=== PATIENT | female | born 1945 | race Caucasian/White ===

== ENCOUNTER → 2017-06-15 | Outpatient (CLI) | payer OTHER | LOC: CIMAGING 14:46 | DX: Z12.31 Encounter for screening mammogram for malignant neoplasm of breast (principal) | CPT/HCPCS: G0202 ==

== ENCOUNTER 2017-12-16 13:30 | Inpatient (IN) | payer OTHER ==
[2017-12-16] MEDS ORDERED: NS 1,000 ML IV ONE (13:43)
--- NOTE | 2017-12-16 13:47 | EDPHY ---
H & P Time Seen by Provider: 12/16/17 13:31 HPI/ROS: CHIEF COMPLAINT: Unwitnessed fall, right hip pain HISTORY OF PRESENT ILLNESS: 72[place]year-[place] to [place] emergency department by ambulance after having an unwitnessed fall. Patient thinks that she fell 3 days ago and then fell again today. The friend who found her thinks that she has been lying on the floor for several days. Per EMS, she was covered in stool and urine. Patient complains of isolated pain in her right hip. She has pain especially when she tries to move her right leg around. She has some mild pain in her right knee as well. Denies back pain. Denies neck pain. Denies chest pain or difficulty breathing. Denies abdominal pain. No vomiting. REVIEW OF SYSTEMS: Constitutional: No fever, no chills. Eyes: No double or blurry vision. ENT: No sore throat. Respiratory: No cough, no shortness of breath. Cardiac: No chest pain. Gastrointestinal: No abdominal pain, vomiting or diarrhea. Genitourinary: No dysuria. Musculoskeletal: No neck or back pain. Skin: No rashes. Neurological: No headache. Past Medical/Surgical History: Hypertension, diabetes Social History: Lives independently with her dog Physical Exam: General Appearance: Alert, no distress. No visible signs of trauma to her head. She is mentating normally and answering questions appropriately. Eyes: Pupils equal and round. Extraocular motions are all intact. ENT: Mouth: Mucous membranes are very dry Respiratory: No wheezing, rhonchi, or rales, lungs are clear to auscultation. Cardiovascular: Regular rate and rhythm. Gastrointestinal: Abdomen is soft and nontender, no masses, no rebound or guarding, bowel sounds normal. Neurological: Alert and oriented x 3, cranial nerves II through XII grossly intact Skin: Warm and dry, no rashes. Musculoskeletal: Nontender to palpate along the cervical, thoracic or lumbar spine. Neck is supple. Extremities: Patient has mild pain with palpation to the lateral aspect of the right hip. She has pain with external rotation of the right hip. She has limited flexion of the right knee secondary to pain. Full range of motion of the left lower extremity. Psychiatric: Patient is oriented X 3, there is no agitation. Constitutional: Initial Vital Signs Temperature (C) 36.8 C 12/16/17 13:42 Heart Rate 58 L 12/16/17 13:42 Respiratory Rate 18 12/16/17 13:42 Blood Pressure 106/63 12/16/17 13:42 O2 Sat (%) 92 12/16/17 13:42 O2 Delivery Mode Room Air Allergies/Adverse Reactions: levofloxacin [From Levaquin] Allergy (Verified 12/16/17 13:46) Penicillins Allergy (Verified 12/16/17 13:46) Home Medications: Medication Instructions Recorded ALPRAZolam [Xanax 1 MG (*)] 1 mg PO DAILY 12/16/17 Gabapentin [Neurontin 300 MG (*)] 300 mg PO HS 12/16/17 Sulfamethox/Tmp 800/160 mg 1 tab PO 12/16/17 [Bactrim Ds] Valsartan/Hydrochlorothiazide 1 each PO DAILY 12/16/17 [Diovan Hct 320-25 mg Tablet] Medical Decision Making - Diagnostics Imaging Results: Imaging Impressions Hip X-Ray 12/16/17 13:43 Impression: Negative. No acute fracture. If patient is unable to bear weight, consider noncontrast CT of the pelvis. Imaging: Discussed imaging studies w/ call center rn Radiologist, I viewed and interpreted images myself ED Course/Re-evaluation: 72-year-old female presents to the emergency department with hip pain after frequent falls. The patient lives independently in [place], [place]. The patient said that she fell 3 days ago. She is not clear how long she was lying on the floor. She does remember with getting up and walking around and then fell again today. A friend found her who called EMS for transport. The patient is complaining of pain especially in her right hip when she tries to bear weight. The patient denies paresthesias in her upper or lower extremities. Denies pain in her right knee or ankle. Denies symptoms in the left lower extremity. Laboratory studies reveal elevated CPK of 3600. Sodium of 147, BUN of 38 with a normal creatinine 0.8. The case was discussed with Dr. Andre Cha, secondary supervising physician, who did not directly evaluate the patient but agrees with treatment plan. There was some concern from EMS that her house was disheveled. The patient is not suicidal homicidal. Case management is aware and will contact the floor. X-rays were obtained of the right hip which reveal no fractures. The patient was able to ambulate in the emergency department however she did require assistance and seemed very unsteady on her feet. The patient will be admitted to the hospitalist, Dr. Rivers. Differential Diagnosis: Including but not limited to electrolyte abnormality, dehydration, rhabdomyolysis, hip fracture, contusion, pelvis fracture, low back strain - Data Points Laboratory Results: Laboratory Results 12/16/17 14:25 12/16/17 14:25 12/16/17 12/16/17 12/16/17 16:25 14:25 14:25 WBC 14.05 10^3/uL H 10^3/uL (3.80-9.50) RBC 6.27 10^6/uL H 10^6/uL (4.18-5.33) Hgb 18.0 g/dL H g/dL (12.6-16.3) Hct 53.3 % H % (38.0-47.0) MCV 85.0 fL fL (81.5-99.8) MCH 28.7 pg pg (27.9-34.1) MCHC 33.8 g/dL g/dL (32.4-36.7) RDW 14.4 % % (11.5-15.2) Plt Count 195 10^3/uL 10^3/uL (150-400) MPV 9.7 fL fL (8.7-11.7) Neut % (Auto) 87.2 % H % (39.3-74.2) Lymph % (Auto) 7.0 % L % (15.0-45.0) [place] % (Auto) 5.1 % % (4.5-13.0) Eos % (Auto) 0.1 % L % (0.6-7.6) Baso % (Auto) 0.2 % L % (0.3-1.7) Nucleat RBC Rel Count 0.0 % % (0.0-0.2) Absolute Neuts (auto) 12.25 10^3/uL H 10^3/uL (1.70-6.50) Absolute Lymphs (auto) 0.98 10^3/uL L 10^3/uL (1.00-3.00) Absolute Monos (auto) 0.72 10^3/uL 10^3/uL (0.30-0.80) Absolute Eos (auto) 0.02 10^3/uL L 10^3/uL (0.03-0.40) Absolute Basos (auto) 0.03 10^3/uL 10^3/uL (0.02-0.10) Absolute Nucleated RBC 0.00 10^3/uL 10^3/uL (0-0.01) Immature Gran % 0.4 % % (0.0-1.1) Immature Gran # 0.05 10^3/uL 10^3/uL (0.00-0.10) Sodium 147 mEq/L H mEq/L (135-145) Potassium 3.4 mEq/L mEq/L (3.3-5.0) Chloride 110 mEq/L mEq/L (97-110) Carbon Dioxide 20 mEq/l L mEq/l (22-31) Anion Gap 17 mEq/L H mEq/L (8-16) BUN 38 mg/dL H mg/dL (7-23) Creatinine 0.8 mg/dL mg/dL (0.6-1.0) Estimated GFR > 60 Glucose 140 mg/dL H mg/dL (70-100) Calcium 9.1 mg/dL mg/dL (8.5-10.4) Creatine Kinase 3604 IU/L H IU/L (0-156) CK-MB (CK-2) Fraction 37.10 ng/mL H ng/mL (0.00-4.55) CK-MB (CK-2) % 1.0 % % (0.0-4.0) Creatine Kinase Interp NEGATIVE (NEGATIVE) Urine Color YELLOW Urine Appearance CLEAR Urine pH 5.0 (5.0-7.5) Ur Specific [place] 1.021 (1.002-1.030) Urine Protein NEGATIVE (NEGATIVE) Urine Ketones TRACE H (NEGATIVE) Urine Blood 1+ H (NEGATIVE) Urine Nitrate NEGATIVE (NEGATIVE) Urine Bilirubin NEGATIVE (NEGATIVE) Urine Urobilinogen NEGATIVE EU EU (0.2-1.0) Ur Leukocyte Esterase NEGATIVE (NEGATIVE) Urine RBC 5-10 /hpf H /hpf (0-3) Urine WBC 5-10 /hpf H /hpf (0-3) Ur Epithelial Cells TRACE /lpf /lpf (NONE-1+) Amorphous Sediment PRESENT /hpf /hpf (NONE-1+) Hyaline Casts 5-15 /lpf /lpf (0-1) Urine Mucus TRACE /lpf /lpf (NONE-1+) Urine Glucose 1+ H (NEGATIVE) Medications Given: Discontinued Medications Sodium Chloride (Ns) 1,000 mls @ 0 mls/hr IV ONCE ONE PRN Reason: Wide Open Stop: 12/16/17 13:44 Last Admin: 12/16/17 14:04 Dose: 1,000 mls Departure - Departure Disposition: [facility] Inpatient Acute Clinical Impression: Frequent falls, Dehydration Contusion of right hip Qualifiers: Encounter type: initial encounter Qualified Code(s): S70.01XA - Contusion of right hip, initial encounter Condition: Good
[2017-12-16 14:44] LABS: PLATELET COUNT 195 10^3/uL (150-400)
[2017-12-16 15:10] LABS: CREATINE KINASE 3604 IU/L (0-156)
--- NOTE | 2017-12-16 16:12 | ASMTCMCOM ---
CM Note CM Note Notes: Pt in ED by ambulance from [place] after a friend found her on the floor of her home. Her friend informed EMS that she may have been lying on the floor for several days. Pt is being admitted for obsrvation. She lives alone with her Rottweiler and has a very limited support system. After care will need to be assessed with the possibilty of SNF. DC needs TBD, CM to follow. Date Signed: 12/16/2017 04:12 PM Electronically Signed By:David Caicedo LCSW
[2017-12-16] MEDS ORDERED: ONDANSETRON 4 MG/2 ML VIAL IVP PRN (17:27)
[2017-12-16] MEDS ORDERED: ACETAMINOPHEN 325 MG TAB PO PRN (17:27)
[2017-12-16] MEDS ORDERED: ONDANSETRON DISINTEGRATING 4 MG TAB PO PRN (17:27)
[2017-12-16] MEDS ORDERED: NS 1,000 ML IV SCH (17:30)
--- NOTE | 2017-12-16 17:49 | PDGENHP ---
History and Physical History and Physical: CC: Brought by paramedics were called as the patient wasUnable to get up off the floor HISTORY: This patient fell 2 days ago and could not get up off the floor where she stayed at her home in [place] where she lives by herself with a dog. Apparently friend came by and called the paramedics who brought her here to the hospital. According to paramedics that the house was disheveled. The patient tells me that she slipped and fell landing on a right-sided has right-sided hip pain but no other pain. She did not lose consciousness, but thinks she may have bumped her head but has no headache or neurologic symptoms or neck pain or radicular symptoms. She does admit that she had been having nausea and vomiting lightheadedness and weakness earlier in the week prior to the fall. She was too weak to get up off the floor. She was not using her walker which she is supposed to use chronically. She has only had 1 previous fall but does have some gait instability. She does not recall any history of hypoglycemic symptoms. She denies having had any recent abdominal pain, fevers, diarrhea, bleeding. No new changes in medications. She does admit that she takes a daily Xanax tablet most days for anxiety. She has had no medication changes. She denies she any current use of alcohol or drugs. ROS: A comprehensive 10 system review revealed no other significant findings PAST MEDICAL HISTORY: Gait instability Hypertension Diabetes mellitus on insulin FAMILY MEDICAL HISTORY: Nothing specific that she is aware of SOCIAL HISTORY: Lives alone with a dog in a cabin in [place] Again as mentioned it sounds like her cabin was quite disheveled per paramedics. She does have a walker that she is post use but was not using it at the time of her fall 2 days ago MEDICATIONS: The patients list has been reconciled by our clinical pharmacist in the EMR. I have reviewed the list and ordered appropriate medicines. PHYSICAL EXAMINATION: Vital Signs: All stable without fever Primary Products Inspectors: Sinus Examination: General: Quite obese, odor of urine and does not smell to have had any bathing recently. Otherwise alert, oriented, good mentation, relaxed but looks mildly uncomfortable Skin: warm, dry, overall good color; there is extensive intertriginous disease with open sores between her lower abdominal folds and around the groin as well as under the breast. No definite cellulitis and no purulent drainage HEENT: normal with no evidence of injury; she does have missing upper teeth and does not of her denture with her Neck: no mass or jvd or tenderness Resps: relaxed Lungs: clear breath sounds Heart: regular, no murmur Abdomen: Difficult exam due to marked obesity, soft, nondistended, nontender, + BS, no mass Upper Extremities: normal Lower Extremities: Some mild edema no evidence of cellulitis; in the right leg there is some pain with movement at the right hip and right knee and tenderness at the distal thigh over the femur but no visible abnormality no crepitus or clicking No some mild bruises on the lower right abdomen Neurologic: normal speech/language, 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 She has a total CPKs 3600 with negative MB White blood cell count elevated 14 hemoglobin elevated at 18 with hematocrit 53 normal platelets RADIOLOGY STUDIES: X-rays of the right hip and pelvis show no evidence of fracture or other acute abnormality, there is some mild atherosclerosis calcification present 12 LEAD EKG: Not done in the ER yet ASSESSMENT: # FOUND DOWN ON FLOOR UNABLE TO GET UP AFTER A MECHANICAL FALL # ACUTE DEHYDRATION WITH HYPERNATREMIA AND PRE RENAL AZOTEMIA # ACUTE RHABDOMYOLYSIS CPK 3600 # RIGHT HIP PAIN NO EVIDENCE OF FRACTURE ON X-RAYS BUT WOULD BE CONCERNED ABOUT POSSIBLE MISSED SKELETAL INJURY # RIGHT DISTAL FEMUR PAIN NOT YET IMAGED, DOUBT FRACTURE BUT THIS SHOULD BE STUDIED # MARKET INTERTRIGINOUS DERMATITIS IN SKIN FOLDS AROUND THE ABDOMEN AND BREASTS WITH OPEN WOUNDS WILL NEED EXTENSIVE WOUND CARE AND WOUND CARE NURSE CONSULTATION HERE # CHRONIC GAIT INSTABILITY WITH FALL RISK, SUPPOSEDLY USING A WALKER AT HOME BUT DID NOT FOR THIS FALL; NOTABLY PATIENT DOES TAKE A DAILY BENZODIAZEPINE XANAX TABLET WHICH WILL INCREASE HER FALL RISK AND IT WOULD BE RECOMMENDED TO TRY AND DISCONTINUE THAT MEDICINE # DIABETES MELLITUS, ON CHRONIC INSULIN WITH INITIALLY GOOD SUGAR HERE ON PRESENTATION # MORBID OBESITY WITH SOME MILD LEG EDEMA WOULD SUGGEST PROBABLE RIGHT-SIDED CHF AND PULMONARY HYPERTENSION AND WOMAN LIVING AT VERY HIGH ALTITUDE # SOCIAL ISSUES: PATIENT HAS A DOG SHE LIVES WITH AT HOME, SAYS THAT A FRIEND IS TAKING CARE OF HER DOG BUT I HAVE ASKED GRADUATE STUDENT INSTRUCTOR TO CHECK TO SEE THAT HER DOG IS APPROPRIATELY TENDED AND SAFE. SOUNDS LIKE HER HOUSE IS DISHEVELLED WONDER IF SHE IS ABLE TO CARE FOR HERSELF AT HOME APPROPRIATELY, MAY BE HELPFUL TO INTERVIEW FRIENDS PLANS: * INPATIENT ADMISSION SHE WILL CLEARLY NEED MORE THAN 48 HR TO RESOLVE THE ABOVE TO BE ABLE TO LEAVE THE HOSPITAL SAFELY * IV HYDRATION * FALL RISK PRECAUTIONS * WOUND CARE CONSULT * FOLLOW CPK AND RENAL FUNCTION AND SODIUM CLOSELY * FOLLOW SUGARS CLOSELY, I HAVE ORDERED HER USUAL LONG-ACTING INSULIN BUT WILL NEED TO DETERMINE THE MOST APPROPRIATE SHORT-ACTING INSULIN DOSING FOR HER IN HER CURRENT INPATIENT SITUATION, WATCH CLOSELY FOR LOW SUGARS * RECOMMEND STOPPING HER BENZODIAZEPINE AT THIS TIME * PT AND OT CONSULT * DVT PROPHYLAXIS * I HAVE ORDERED SOCIAL WORK CONSULT AND REQUESTED THAT THEY LOOK INTO HER HOME LIVING SITUATION WELL TO BE SURE HER DOG IS APPROPRIATELY TENDON SAFE I have reviewed the patient's case in detail with Maral Olson of the ER I have reviewed the patient's past medical records as part of this assessment, including clinic records from her outpatient clinics which actually contain minimal information in this case, and also past outpatient imaging studies
--- NOTE | 2017-12-16 17:51 | HOSPPROG ---
Hospitalist Progress Note Assessment/Plan: Addendum to my history and physical: I have also ordered CT scan of the hip and pelvis to rule out right hip fracture as well as x-rays of the right femur to rule out distal femur fracture after her fall. The studies are pending tonight TuesdayDecember 16. Objective: Vital Signs Temp Pulse Resp BP Pulse Ox 36.6 C 64 18 104/80 92 12/16/17 17:26 12/16/17 17:26 12/16/17 17:26 12/16/17 17:26 12/16/17 17:26 ICD10 Worksheet Patient Problems: Problems Problem Status Onset Frequent falls Acute Dehydration Acute Contusion of right hip Acute
--- NOTE | 2017-12-16 19:11 | PDMN ---
Medical Necessity Medical necessity: C/M review: est. > 2 MN LOS for eval and TX of acute - dehydration with hypernatremia and pre renal azotemia, rhabdomyolysis, right hip pain requiring 12/16/2017 CT right hip and pelvis, right femur xray, planned Wound Care consult, Social Work (Case Management) consult, ongoing IV fluids, patient will need extensive wound care, fall risk precautions, CPK / renal function/ Na monitoring closely, blood glucose monitoring closely, recommend stopping benzodiazepine, acute inpt PT/OT, comorbid patient fell 2 days ago and could not get up off the floor, found down at her home after mechanical fall, market intertriginous dermatitis in skin folds around the abdomen and breasts with open wounds, chronic gait instability - patient supposedly using a walker at home but did not prior to this fall, diabetes, morbid obesity with some mile leg edema, social issues patient has a dog at home per H/P, Hospitalist progress note.
[2017-12-16] MEDS: traMADol 50 MG TAB PO PRN (19:23)
[2017-12-16] MEDS: SULFAMETHOX/TMP 800/160 MG 1 TAB PO SCH (20:39)
[2017-12-16] MEDS: INSULIN GLARGINE 100 UNITS/ML UNIT SC SCH (20:39)
[2017-12-16] MEDS: GABAPENTIN 300 MG CAP PO SCH (20:39)
[2017-12-17 05:20] LABS: PLATELET COUNT 177 10^3/uL (150-400)
[2017-12-17 05:45] LABS: CREATINE KINASE 1314 IU/L (0-156)
[2017-12-17] MEDS ORDERED: D5W 1,000 ML IV SCH (08:30)
[2017-12-17] MEDS ORDERED: VALSARTAN 160 MG TAB PO SCH (09:00)
[2017-12-17] MEDS ORDERED: HYDROCHLOROTHIAZIDE 25 MG TAB PO SCH (09:00)
[2017-12-17] MEDS: ENOXAPARIN 40 MG/0.4 ML SYR SC SCH ×2 (09:05→21:29)
[2017-12-17] MEDS: SULFAMETHOX/TMP 800/160 MG 1 TAB PO SCH ×2 (09:06→21:30)
[2017-12-17] MEDS: traMADol 50 MG TAB PO PRN ×3 (10:15→23:10)
[2017-12-17] MEDS ORDERED: NS 250 ML IV ONE (11:47)
[2017-12-17] MEDS ORDERED: NS 750 ML IV ONE (12:12)
--- NOTE | 2017-12-17 15:22 | HOSPPROG ---
Hospitalist Progress Note Assessment/Plan: #Hypotension: persistent all day. Supect due to severe dehydration. Bolus IVFs, hold anti-hypertensives. Afebrile. Lactate NL. Urine culture negative -troponin elevated to 0.4, TWI anterior leads. Check stat echo, dimer to r/o PE #Hypernatremia: IVFs, repeating BMP #Fall: slipped. No prodromal sxs. No CP, SOB at baseline. No acute fracture on imaging. PT/OT #Pyuria: no symptoms. 3 colonies on culture. No abx warranted #Diarrhea: at home. 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 Denies lightheadedness. Per RN, did not received IVFs ordered last night. Objective: Vital Signs Temp Pulse Resp BP Pulse Ox 36.4 C 56 L 18 86/52 L 91 L 12/17/17 11:33 12/17/17 11:33 12/17/17 11:33 12/17/17 11:33 12/17/17 11:33 Laboratory Results 12/17/17 04:55 12/16/17 12/17/17 12/18/17 05:59 05:59 05:59 Intake Total 50 Balance 50 - Time Spent With Patient Time Spent with Patient: greater than 35 minutes Time Spent with Patient: Greater than 35 minutes spent on this patients care, greater than 50% of time spent counseling, educating, and coordinating care regarding the above mentioned plan. - Physical Exam Constitutional: obese Eyes: PERRL, other Ears, Nose, Mouth, Throat: dry mucous membranes Cardiovascular: regular rate and rhythym, no murmur, rub, or gallop Respiratory: no respiratory distress, rhonchi Gastrointestinal: normoactive bowel sounds Genitourinary: no bladder fullness Skin: warm Musculoskeletal: full muscle strength Neurologic: AAOx3, CN II-XII Intact Psychiatric: interacting appropriately ICD10 Worksheet Patient Problems: Problems Problem Status Onset Contusion of right hip Acute Dehydration Acute Frequent falls Acute
[2017-12-17] MEDS ORDERED: NS 500 ML IV ONE (15:34)
--- NOTE | 2017-12-17 16:36 | ASMTCMCOM ---
CM Note CM Note Notes: Spoke w/PT, she lives alone with her dog in [place]. She states that, she has lots of good friends that help her out and they are taking care of her dog. Advised pt that PT/OT recommend she go to SNF before returning home, pt reluctantly agrees and would like referrals sent to SNFs in [place]. [facility] and [facility]. DC Plan: SNF Date Signed: 12/17/2017 04:35 PM Electronically Signed By:Dianna Garduno RN
[2017-12-17] MEDS: NS 1,000 ML IV SCH ×2 (16:54→23:13)
--- NOTE | 2017-12-17 17:10 | CPEKG ---
Heart Rate: 50 RR Interval: 1200 P-R Interval: 256 QRSD Interval: 122 QT Interval: 488 QTC Interval: 445 P Maple: 29 QRS Maple: -1 T Wave Maple: 9 EKG Severity - ABNORMAL ECG - EKG Impression: SINUS RHYTHM EKG Impression: FIRST DEGREE AV BLOCK EKG Impression: NONSPECIFIC INTRAVENTRICULAR CONDUCTION DELAY Electronically Signed By: Carlitos Whiteside 19-Dec-2017 05:51:26
--- NOTE | 2017-12-17 18:58 | ECHO ---
[email or web address] [address] [address] Main: [phone] Fax: Transthoracic Echocardiogram Name: MUNIR NASSAR MR#: [id number] Study Date: 12/17/2017 Study Time: 06:25 PM Date of : 1945 Age: 72 year(s) Height: 170.2 cm (67 in.) Weight: 117.94 kg (260 lb.) BSA: 2.26 m2 Gender: Female Examination: Echo Indication: Elevated troponin/hypotension/eval for WMA/obesity Image Quality: Contrast: Requested by: Alea Blake BP: 109 mmHg/67 mmHg Heart Rate: Rhythm: Indication: Elevated troponin/hypotension/eval for WMA/obesity Procedure Staff Blender Laborer: Mariluz Montalvo RDCS Reading Physician: Jason Finn MD Requesting Provider: Conclusions: Normal size left ventricle. No LV hypertrophy. Normal global systolic LV function. EF is 73 %. No regional wall motion abnormality. Normal diastolic LV function. Normal size right ventricle. The left atrium is normal in size. The right atrium is normal in size. The mitral valve is normal in appearance and function. Trivial mitral valve regurgitation. The tricuspid valve is normal in appearance and function. Mild tricuspid regurgitation is present. Pulmonary valve not well visualized. No previous Measurements: Chambers Valvular Assessment AV/MV Valvular Assessment TV/PV Normal Normal Normal Name Value Range Name Value Range Name Value Range Ao Jaja (MM): 3.3 cm (2.2 cm-3.7 AV meanP mmHg ( - ) TR Vmax: 2.14 mm/s ( - ) cm) MV E Vmax: 0.82 m/s ( - ) TR PGmax: 18 mmHg ( - ) IVSd (2D): 1.0 cm (0.6 cm-1.1 MV A Vmax: 0.66 m/s ( - ) syst. PAP: 23 mmHg ( - ) cm) MV E/A: 1.24 ( - ) LVDd (2D): 4.6 cm (3.9 cm-5.3 cm) LVDs (2D): 2.7 cm (2.1 cm-4 cm) LVPWd (2D): 0.9 cm ( - ) Patient: MUNIR NASSAR Study Date: 12/17/2017 Page 1 of 2 06:25 PM LVEF (2D): 73 (>=54 %) Continued Measurements: Chambers Valvular Assessment AV/MV Valvular Assessment TV/PV Name Value Name Value Name Value LADs: 3.1 cm MV E' Septal: 0.08 m/s CVP (est.): 5 mmHg LADs Lon.0 cm MV E/E' Septal: 10.80 LA Area: 21.8 cm2 MV E/E' Lateral: 6.60 Findings: Left Ventricle: Normal size left ventricle. No LV hypertrophy. Normal global systolic LV function. EF is 73 %. No regional wall motion abnormality. Normal diastolic LV function. Right Ventricle: Normal size right ventricle. Left Atrium: The left atrium is normal in size. Right Atrium: The right atrium is normal in size. Mitral Valve: The mitral valve is normal in appearance and function. Trivial mitral valve regurgitation. Aortic Valve: Aortic valve opens well.. Tricuspid Valve: The tricuspid valve is normal in appearance and function. Mild tricuspid regurgitation is present. Pulmonic Valve: Pulmonary valve not well visualized. Aorta: The aorta is normal. Pericardium: No pericardial effusion. (No Signature Object) Patient: MUNIR NASSAR Study Date: 12/17/2017 Page 2 of 2 06:25 PM [id number]
[2017-12-17] MEDS ORDERED: IOPAMIDOL (ISOVUE 370) 100 ML BTL IV ONE (19:57)
[2017-12-17] MEDS: GABAPENTIN 300 MG CAP PO SCH (21:30)
[2017-12-17] MEDS: INSULIN GLARGINE 100 UNITS/ML UNIT SC SCH (21:43)
[2017-12-18] MEDS: NS 1,000 ML IV SCH ×2 (07:14→16:26)
[2017-12-18] MEDS: ENOXAPARIN 40 MG/0.4 ML SYR SC SCH ×2 (08:37→21:32)
[2017-12-18] MEDS: traMADol 50 MG TAB PO PRN ×2 (08:37→16:25)
[2017-12-18] MEDS: SULFAMETHOX/TMP 800/160 MG 1 TAB PO SCH ×2 (08:37→21:31)
--- NOTE | 2017-12-18 08:39 | HOSPPROG ---
Hospitalist Progress Note Assessment/Plan: #Hypotension: improved with aggressive hydration. Cont IVFs, hold anti- hypertensives. No WMA on echo. Afebrile. Lactate NL. Urine culture negative #NSTEMI: trop peaked 0.4, no WMA on echo. CTA negative for PE. Likely demand from significant dehydration, mild rhabdo. Risk stratify with lipids/A1c, Lexican once clinically improved #Hypernatremia: resolved #Fall: slipped. No prodromal sxs. No CP, SOB at baseline. No acute fracture on imaging. PT/OT. Agreeable to SNF at discharge #Pyuria: no symptoms. 3 colonies on culture. No abx warranted #Diarrhea: at home. Check C diff if recurrent given chronic abx #DM2: cont insulin #Right thigh contusion: blistering over thigh. 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 Having good urine output Objective: Vital Signs Temp Pulse Resp BP Pulse Ox 36.7 C 50 L 18 100/53 L 93 12/18/17 08:00 12/18/17 08:00 12/18/17 08:00 12/18/17 08:00 12/18/17 08:00 Laboratory Results 12/18/17 04:50 12/18/17 04:50 12/17/17 12/18/17 12/19/17 05:59 05:59 05:59 Intake Total 50 2300 Output Total 1100 Balance 50 1200 - Time Spent With Patient Time Spent with Patient: greater than 35 minutes Time Spent with Patient: Greater than 35 minutes spent on this patients care, greater than 50% of time spent counseling, educating, and coordinating care regarding the above mentioned plan. - Physical Exam Constitutional: obese Ears, Nose, Mouth, Throat: dry mucous membranes Cardiovascular: regular rate and rhythym, No edema Respiratory: no respiratory distress Gastrointestinal: normoactive bowel sounds, soft, non-tender abdomen Genitourinary: no bladder fullness Skin: warm Musculoskeletal: generalized weakness, other (right thigh with brusing and 2 small blisters. No erythmea or cellulitis) Neurologic: AAOx3, CN II-XII Intact Psychiatric: flat affect ICD10 Worksheet Patient Problems: Problems Problem Status Onset Contusion of right hip Acute Dehydration Acute Frequent falls Acute
--- NOTE | 2017-12-18 12:04 | WOCRNPDOC ---
WOCRN Advanced Assessment Note - Skin Integrity Problem, Advanced Assess Medial Pannus Dermatitis Dressing Type: Open to Air (powder) Closure Description: Not Approximated Exudate Amount: Minimal Ryann Wound Tissue: Erythema, Denuded, Painful/Tender Wound Bed Color: [place] Wound Bed Constitution: Smooth Tissue Wound Edges: Irregular Skin Integrity Problem Comment: Patient with denuded skin to lower abdominal pannus, groin folds and bilateral breasts, likely moisture related from skin- skin contact. Patient currently headed into the shower. Advised her to clean the areas really well and to dry them thoroughly afterwards. SAMARA Hernandez advised to place pillowcases in folds once dry to keep skin from touching. Pillowcases to be changed BID and PRN. Patient in agreement. All questions answered. Wound care does not need to continue to follow. Please reconsult PRN.
--- NOTE | 2017-12-18 14:48 | ASMTCMCOM ---
CM Note CM Note Notes: CM chart review, [facility] is unable to accept new patients until or Tues. CM called [facility] as there is currently no response from facility, CM was unable to connect with anyone in admissions. IRWIN shared this info with RN. IRWIN to follow. Current D/C Plan: SNF. Date Signed: 12/18/2017 02:48 PM Electronically Signed By:Lorrie Jorgensen
--- NOTE | 2017-12-18 21:05 | GCON ---
[f rep st] CONSULTATION CARDIOVASCULAR CONSULTATION. CHIEF COMPLAINT: Abnormal serum troponin. HISTORY OF PRESENT ILLNESS: The patient was brought to the hospital on 2017. This story goes that the patient fell 2 days before that and that she could not get off the floor. She lives alone, and eventually, a friend came by and called the paramedics who brought her to the hospital. The patient reports to me that she is not sure she remembers what happened, but the previous notes when she first came in the hospital report that she slipped and fell, landing on her side. She tells me she did not faint. She does not lose consciousness. She said she could not get off the floor. She is weak on a regular basis and she has a hard time getting around even with her walker. She could not tell me how long she had been on the floor. She said she did not remember that. It is reported that she had an unwitnessed fall and she fell several days prior to coming in and then other reports stated she fell on the day of the fall, then friends had reported in the chart that she had fallen and been on the floor for several days. So, the history is confusing. What is clear is that she does not report any chest pain, jaw pain, arm pain. She reported no previous trauma to the head, neck, or chest. She denies to me lightheadedness, dizziness, palpitations. She did not have focal neurologic deficits, such as weakness on one side or difficulty with her speech, and she has not been complaining of hemoptysis, trouble breathing. She had been taking her usual medicines and she had been living her regular life is what she reports today to me. She tells me that she has a history of diabetes mellitus and hypertension, but that they are well controlled. She is clearly obese, her cardiac risks factors that are positive. Her cardiac risk factors are negative for family history of premature coronary disease, dyslipidemia, hyperuricemia, known coronary artery disease, or family historyof premature coronary artery disease. She has not had a history of heart failure, orthopnea, PND. She chronically is somewhat short of breath, and she says she does not have dyspnea on exertion, but it is quite clear that she probably does not move around much and would be short of breath so that answer comes and goes from her whether she really is or is not short of breath at times, but it is not a major complaint of hers for sure. She has not been having fever, chills, dysuria frequency, upper respiratory tract symptoms, or other infectious type symptoms. She does not have a history of rashes or stiff neck. She has not had trauma other than the ENDS HERE. Falls, but she said she is not left with any pain from those falls. ALLERGIES: Levofloxacin, penicillin. MEDICATIONS: Valsartan/hydrochlorothiazide, gabapentin, alprazolam, and Bactrim. REVIEW OF SYSTEMS: 10-point review of systems is negative, except as noted in the chart and here above. 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. At this time, she says she is only semi-retired. She lives alone. She lives in [place]. She has a dog. She does not smoke. She has no history of children, and she has no history of using marijuana. PHYSICAL EXAMINATION: VITAL SIGNS: Blood pressure is 101/50, heart rate is 53 , oxygen saturation is 91. She is afebrile. HEENT: Pupils that are equal and reactive. NECK: Supple. CARDIOVASCULAR: Reveals S1, S2. Very distant heart sounds. The PMI is not palpable. PULMONARY: Reveals rhonchi bilaterally with no rales, wheezing, or dullness. ABDOMEN: Very soft. She is massively obese. EXTREMITIES: No tenderness. She does have mild edema bilaterally. At this point, she is not having any pain when she moves the right or left leg. SKIN: Age-related changes and some ecchymosis. PSYCH: No obvious anxiety or depression. NEURO: No focal neurologic deficits. PSYCH: No obvious anxiety or depression. LABORATORY DATA: BUN was 38. Creatinine was normal. Glucose was 140. CPKs were 3600, negative MB's. White count was elevated. Hemoglobin was 18, hematocrit 53 , and normal platelets. The patient's white count originally was 14,000 with hematocrit of 53.3, 87% neutrophils, lymphocytes were 7, monos were 5.1, eos were 0.1, basos 0.2. A followup hematocrit the next day had dropped from 53 to 48, and on the following day, 12/18/17, it is 44.2. The white count is down to 8.59. The patient's sodium on 12/16 was 147 with a potassium of 3.4, carbon dioxide of 20, BUN of 38, creatinine 0.8, glucose 140. The patient's creatinine kinase by 12/17 had come down from 3604 to 1314. TSH was 2.60. A troponin was done on 12/17, and was 0.407. The AST and the ALT were both elevated. The patient's D-dimer on 12/17/2017, was elevated at 5.77, and that led to the CT angiogram. The patient's x-rays on the fallen side did not show significant pathology. Chest/thoracic CTA was obtained, and showed no evidence of pulmonary embolic disease. Mild cardiomegaly. Minimal atelectasis of both lung bases. The patient's electrocardiogram showed normal sinus rhythm, first-degree AV block, interventricular conduction delay, nonspecific ST changes and the heart rate was 50. The patient has had an echocardiographic study, which showed no left ventricular hypertrophy. Normal global LV systolic function. Ejection fraction 73%. No regional wall motion abnormalities. Mitral valve was normal in appearance and function. Trivial MR. Mild TR. ASSESSMENT AND PLAN: 1. Elevated troponin: a. The patient certainly has very many risk factors for coronary artery disease that are powerful, including her obesity, her diabetes, and her hypertension. However, this is not a presentation of an acute coronary syndrome. She did not pass out. She was lying on the floor for several days, up to 3 days possibly, and came in with many metabolic abnormalities, rhabdomyolysis, and dehydration, etc. This could all be a cause for her elevated troponin at this time. b. She has no symptoms to suggest an acute coronary syndrome. She has no symptoms of heart failure. When I spent 35 minutes in the room with her, examining her and talking to her, she was lying perfectly flat, had absolutely no shortness of breath, and denied any symptoms of orthopnea, PND, or significant dyspnea. I discussed the above issues with her dyspnea history because it is hard to believe she would be dyspneic if she did not try to do some more, but she really does limit what she does, so I think that is partly why she denies dyspnea more than the fact that she actually can get around at an average rate and not be short of breath. c. She is having no chest pains. She does not have any syndrome that sounds like acute PE, and that certainly has been found on her. d. Because of her significant risk factors for coronary disease, we can discuss with her whether she would want to do a pharmacologic nuclear stress test as an evaluation, independent of symptoms or findings, just in order to make sure she does not have significant coronary disease. e. This can be done as part of this hospitalization, or if she wants to wait until she feels stronger, it can be arranged as an outpatient. Now, if clinically she deteriorates or changes and needs to have the study done sooner, we can certainly move ahead and get that done any time during her hospitalization here. f. She is certainly not in need of a coronary angiogram at this point in time. 2. Obesity. 3. Diabetes. 4. Hypertension: a. Her blood pressure is certainly controlled right now, and she is not having any trouble with hypertension. b. She is a woman who has these significant risk factors and does not have significant strength to get up and have a big impact on her metabolic issues in a nonpharmacologic way, such as really increasing her exercise and changing her food intake or the volume of food she eats, which is what she really needs to do. c. We have discussed managing these problems and aiming for excellent results, and she is working hard on this to the best that she is able to do that. 5. Positive D-dimer: a. Her D-dimer was positive with a negative CT, and I do not believe she is a woman who has pulmonary embolic disease at this time. 6. Acute dehydration. a. She had acute dehydration, hypernatremia, prerenal azotemia, acute rhabdomyolysis. She has been treated aggressively and is doing very well with the management of this problem here. b. She needs to make sure that she is in a safe environment and can get some strength back so that it is easier for her to move around, get about, and not end up on the floor again for an extended period of time. Social Work can work on this. 7. Dermatitis. a. She does have significant dermatitis and some open wounds in the intertriginous regions, and this is being addressed by wound care. 8. I have answered all her questions. I have discussed her case with the hospitalist prior to today. 9. She is currently stable. 10. We will follow her with you. /[id number]/MODL and [id number]/MODL MTDD
--- NOTE | 2017-12-18 21:20 | GCON ---
[f rep st] CONSULTATION CONTINUATION: PSYCH: No obvious anxiety or depression. LABORATORY DATA: BUN was 38. Creatinine was normal. Glucose was 140. CPKs were 3600, negative MB's. White count was elevated. Hemoglobin was 18, hematocrit 53, and normal platelets. The patient's white count originally was 14,000 with hematocrit of 53.3, 87% neutrophils, lymphocytes were 7, monos were 5.1, eos were 0.1, basos 0.2. A followup hematocrit the next day had dropped from 53 to 48, and on t he following day, 12/18/17, it is 44.2. The white count is down to 8.59. The patient's sodium on 12/02 5 was 147 with a potassium of 3.4, carbon dioxide of 20, BUN of 38, creatinine 0.8, glucose 140. The patient's creatinine kinase by 12/17 had come down from 3604 to 1314. TSH was 2.60. A troponin was do ne on 12/17, and was 0.407. The AST and the ALT were both elevated. The patient's x-rays on the fallen side did not show significant pathology. The patient has had an echocardiographic study, which showed no left ventricular hypertrophy. Normal global LV systolic function. Ejection fraction 73%. No regional wall motion abnormalities. Mitral shun ve was normal in appearance and function. Trivial MR. Mild TR. Chest/thoracic CTA was obtained, and showed no evidence of pulmonary embolic disease. Mild cardiomega ly. Minimal atelectasis of both lung bases. The patient's electrocardiogram showed normal sinus rhythm, first-degree AV block, interventricular c onduction delay, nonspecific ST changes and the heart rate was 50. The patient's D-dimer on 12/17/2017, was elevated at 5.77, and that led to the CT angiogram. ASSESSMENT AND PLAN: 1. Elevated troponin. a. The patient certainly has very many risk factors for coronary artery disease that are powerful, i ncluding her obesity, her diabetes, and her hypertension. However, this is not a presentation of an a cute coronary syndrome. She did not pass out. She was lying on the floor for several days, up to 3 da ys possibly, and came in with many metabolic abnormalities, rhabdomyolysis, and dehydration, etc. Thi s could all be a cause for her elevated troponin at this time. b. She has no symptoms to suggest an acute coronary syndrome. She has no symptoms of heart failure. When I spent 35 minutes in the room with her, examining her and talking to her, she was lying perfect ly flat, had absolutely no shortness of breath, and denied any symptoms of orthopnea, PND, or signifi cant dyspnea. I discussed the above issues with her dyspnea history because it is hard to believe she would be dyspneic if she did not try to do some more, but she really does limit what she does, so I think that is partly why she denies dyspnea more than the fact that she actually can get around at an average rate and not be short of breath. c. She is having no chest pains. She does not have any syndrome that sounds like acute PE, and that certainly has been found on her. d. Because of her significant risk factors for coronary disease, we can discuss with her whether she would want to do a pharmacologic nuclear stress test as an evaluation, independent of symptoms or fi ndings, just in order to make sure she does not have significant coronary disease. e. This can be done as part of this hospitalization, or if she wants to wait until she feels stronge r, it can be arranged as an outpatient. Now, if clinically she deteriorates or changes and needs to h ave the study done sooner, we can certainly move ahead and get that done any time during her hospital ization here. f. She is certainly not in need of a coronary angiogram at this point in time. 2. Obesity. 3. Diabetes. 4. Hypertension. a. Her blood pressure is certainly controlled right now, and she is not having any trouble with hype rtension. b. She is a woman who has these significant risk factors and does not have significant strength to g et up and have a big impact on her metabolic issues in a nonpharmacologic way, such as really increas ing her exercise and changing her food intake or the volume of food she eats, which is what she reall y needs to do. c. We have discussed managing these problems and aiming for excellent results, and she is working gomez rd on this to the best that she is able to do that. 5. Positive D-dimer. a. Her D-dimer was positive with a negative CT, and I do not believe she is a woman who has pulmonar y embolic disease at this time. 6. Acute dehydration. a. She had acute dehydration, hypernatremia, prerenal azotemia, acute rhabdomyolysis. She has been t reated aggressively and is doing very well with the management of this problem here. b. She needs to make sure that she is in a safe environment and can get some strength back so that i t is easier for her to move around, get about, and not end up on the floor again for an extended nikki od of time. Social Work can work on this. 7. Dermatitis. a. She does have significant dermatitis and some open wounds in the intertriginous regions, and this is being addressed by wound care. 8. I have answered all her questions. I have discussed her case with the hospitalist prior to today. 1. She is currently stable. 2. We will follow her with you. c/p [facility] #[id number] /[id number]/MODL
[2017-12-18] MEDS: INSULIN GLARGINE 100 UNITS/ML UNIT SC SCH (21:31)
[2017-12-18] MEDS: GABAPENTIN 300 MG CAP PO SCH (21:31)
[2017-12-19] MEDS: NS 1,000 ML IV SCH ×2 (02:17→09:22)
[2017-12-19] MEDS: SULFAMETHOX/TMP 800/160 MG 1 TAB PO SCH ×2 (09:16→20:46)
[2017-12-19] MEDS: ENOXAPARIN 40 MG/0.4 ML SYR SC SCH ×2 (09:17→20:47)
[2017-12-19] MEDS ORDERED: INSULIN GLARGINE 100 UNITS/ML UNIT SC SCH ×2 (09:39→14:00)
--- NOTE | 2017-12-19 09:42 | HOSPPROG ---
Hospitalist Progress Note Assessment/Plan: #Hypotension: Resolved. Due to severe dehydration. Afebrile, normal lactate, cortisol. Holding BP meds for now -Echo with WMA, negative CTA #NSTEMI: suspect due to acute illness, but given risks will further eval with Lexiscan tomorrow #Shingles: right thigh. Acyclovir (Day 1), increase Gabapentin for pain control #Hypoglycemia: reduce evening glargine to 25 units since not eating much #Fall: slipped. No prodromal sxs. No CP, SOB at baseline. No acute fracture on imaging. PT/OT. SNF at DC #Pyuria: no symptoms. 3 colonies on culture. 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 DC to SNF if Lexiscan negative Subjective: burning pain in right thigh Objective: Vital Signs Temp Pulse Resp BP Pulse Ox 36.6 C 55 L 18 131/81 H 95 12/19/17 08:21 12/19/17 08:21 12/19/17 08:21 12/19/17 08:21 12/19/17 08:21 Laboratory Results 12/18/17 04:50 12/18/17 04:50 12/18/17 12/19/17 12/20/17 05:59 05:59 05:59 Intake Total 2300 1000 Output Total 1100 1400 Balance 1200 -400 - Time Spent With Patient Time Spent with Patient: greater than 35 minutes Time Spent with Patient: Greater than 35 minutes spent on this patients care, greater than 50% of time spent counseling, educating, and coordinating care regarding the above mentioned plan. - Physical Exam Constitutional: obese, other (appears brighter today) Ears, Nose, Mouth, Throat: dry mucous membranes Cardiovascular: regular rate and rhythym Respiratory: no respiratory distress Gastrointestinal: normoactive bowel sounds Genitourinary: no bladder fullness Skin: other (few vesicles right thigh, TTP) Musculoskeletal: generalized weakness Neurologic: AAOx3, CN II-XII Intact Psychiatric: interacting appropriately ICD10 Worksheet Patient Problems: Problems Problem Status Onset Contusion of right hip Acute Dehydration Acute Frequent falls Acute
[2017-12-19] MEDS: TEARS/DEXTRAN 70/HYPROMELLOSE 15 ML OPHT.BTL EACHEYE PRN (12:59)
[2017-12-19] MEDS: traMADol 50 MG TAB PO PRN ×2 (13:00→20:46)
[2017-12-19] MEDS: ACYCLOVIR 200 MG CAP PO SCH ×3 (13:01→20:46)
--- NOTE | 2017-12-19 17:31 | SOAPPROG ---
TALIA Progress Note Assessment/Plan: Assessment: 1. Lightheadedness 2. Obesity 3. Hypertension At this point time she is not having chest pain or chest tightness She is having some lightheadedness and she has had perfectly normal heart rates at that time. There is no sign that she has a significant Ganga arrhythmias that would need any intervention on this at this time. She has come down with shingles and is being isolated. Were talking about doing a stress test before she was discharged not because of any symptoms are active pathology but rather just because she is here and she has significant risk factors for coronary disease. Given her shingles and the fact that she would have to be moved multiple times down into nuclear Medicine I think is far better that we postpone that study follow her closely and she can and have the nuclear imaging study as an outpatient. She has absolutely no symptoms of major cardiac issues. I have discussed this with the hospitalist. Should she clinically deteriorates in any way we can change our plan at any time without any problem. Plan: 12/19/17 17:32 Subjective: She has been feeling well. She has been lightheaded a few times today She has had no chest pain She had no fever chills No cough he a Objective: Vital Signs Temp Pulse Resp BP Pulse Ox 37.0 C 50 L 15 130/66 H 93 12/19/17 16:54 12/19/17 16:54 12/19/17 16:54 12/19/17 16:54 12/19/17 16:54 Laboratory Results 12/18/17 04:50 12/18/17 04:50 12/18/17 12/19/17 12/20/17 05:59 05:59 05:59 Intake Total 2300 1000 350 Output Total 1100 1400 650 Balance 1200 -400 -300 Physical Exam - Physical Exam General Appearance: alert Neck: non-tender Respiratory: lungs clear, No rhonchi Cardiac/Chest: regular rate, rhythm, systolic murmur Neuro/Psych: alert ICD10 Worksheet Patient Problems: Problems Problem Status Onset Contusion of right hip Acute Dehydration Acute Frequent falls Acute
[2017-12-19] MEDS: GABAPENTIN 300 MG CAP PO SCH ×2 (17:46→20:47)
[2017-12-20] MEDS: traMADol 50 MG TAB PO PRN ×3 (05:57→22:13)
[2017-12-20] MEDS: ACYCLOVIR 200 MG CAP PO SCH ×5 (05:57→22:15)
[2017-12-20] MEDS: SULFAMETHOX/TMP 800/160 MG 1 TAB PO SCH ×2 (09:51→22:16)
[2017-12-20] MEDS: ENOXAPARIN 40 MG/0.4 ML SYR SC SCH ×2 (09:51→22:13)
[2017-12-20] MEDS: GABAPENTIN 300 MG CAP PO SCH ×3 (09:51→22:15)
[2017-12-20] MEDS: IBUPROFEN 600 MG TAB PO PRN ×2 (10:08→18:12)
[2017-12-20] MEDS: TEARS/DEXTRAN 70/HYPROMELLOSE 15 ML OPHT.BTL EACHEYE PRN (10:10)
--- NOTE | 2017-12-20 13:33 | ASMTCMCOM ---
CM Note CM Note Notes: CM met w/ pt for dispo planning. CM informed pt that both [facility] and [facility] have accepted. Pt would like to go to [facility]. CM notified Jazmin at [facility]. Updates sent over. CM available for changes. Plan: [facility] Date Signed: 12/20/2017 01:32 PM Electronically Signed By:BARBARA Landon
--- NOTE | 2017-12-20 14:05 | HOSPPROG ---
Hospitalist Progress Note Assessment/Plan: # lightheadedness - ongoing; # bradycardia - could be cause of her lightheadedness; odd that she was ifeoma while so dehydrated - will ambulate her and follow her HR # dehydration, profound - resolved with IVF # shingles - cont acv and gabapentin # NSTEMI - possible stress as outpatient # DM2 - hypoglycemic this am - decrease insulin tonight # fall - likely d/t dehydration - SNF on dc # pyuria - urine cx not concerning # mild rhabdo - resolved # hx MRSA - chronic bactrim # dvt ppx - lovenox Subjective: ongoing R sided hip pain Objective: Vital Signs Temp Pulse Resp BP Pulse Ox 36.8 C 56 L 19 122/81 H 93 12/20/17 11:01 12/20/17 11:01 12/20/17 11:01 12/20/17 11:01 12/20/17 11:01 Laboratory Results 12/18/17 04:50 12/20/17 04:13 12/19/17 12/20/17 12/21/17 05:59 05:59 05:59 Intake Total 1000 600 Output Total 1400 650 Balance -400 -50 chart reviewed CTA reviewed echo reviewed - Physical Exam Constitutional: obese Ears, Nose, Mouth, Throat: hearing normal Cardiovascular: No edema Respiratory: no respiratory distress Gastrointestinal: soft, non-tender abdomen, no palpable masses Genitourinary: No lopez in urethra Skin: warm Musculoskeletal: full muscle strength Neurologic: AAOx3 Psychiatric: interacting appropriately, not anxious ICD10 Worksheet Patient Problems: Problems Problem Status Onset Frequent falls Acute Dehydration Acute Contusion of right hip Acute
[2017-12-20] MEDS: INSULIN GLARGINE 100 UNITS/ML UNIT SC SCH (22:15)
[2017-12-21] MEDS: ACYCLOVIR 200 MG CAP PO SCH ×5 (06:02→21:21)
[2017-12-21] MEDS: traMADol 50 MG TAB PO PRN ×3 (06:02→18:42)
[2017-12-21] MEDS: ENOXAPARIN 40 MG/0.4 ML SYR SC SCH ×2 (09:38→21:21)
[2017-12-21] MEDS: SULFAMETHOX/TMP 800/160 MG 1 TAB PO SCH ×2 (09:38→21:21)
[2017-12-21] MEDS: GABAPENTIN 300 MG CAP PO SCH ×3 (09:38→21:21)
[2017-12-21] MEDS: IBUPROFEN 600 MG TAB PO PRN ×2 (09:52→16:22)
--- NOTE | 2017-12-21 12:00 | HOSPPROG ---
Hospitalist Progress Note Assessment/Plan: # lightheadedness - ongoing; - will check lexiscan as inpatient as well as get a neuro consult # bradycardia - appropriate heart rate increase with ambulation # dehydration and hypotension, profound - resolved with IVF # shingles - cont acv and gabapentin # NSTEMI - carter tomorrow # DM2 - insulin decreased # fall - likely d/t dehydration - SNF on dc # pyuria - urine cx not concerning # mild rhabdo - resolved # hx MRSA - chronic bactrim # deconditioning - SNF # dvt ppx - lovenox Subjective: still quite lightheaded Objective: Vital Signs Temp Pulse Resp BP Pulse Ox 36.6 C 65 14 122/60 H 92 12/21/17 10:43 12/21/17 10:43 12/21/17 08:00 12/21/17 10:43 12/21/17 08:00 Laboratory Results 12/18/17 04:50 12/20/17 04:13 12/20/17 12/21/17 12/22/17 05:59 05:59 05:59 Intake Total 600 300 350 Output Total 650 Balance -50 300 350 - Physical Exam Constitutional: no apparent distress, appears nourished Eyes: anicteric sclera Ears, Nose, Mouth, Throat: hearing normal Respiratory: no respiratory distress Gastrointestinal: No distension Genitourinary: No lopez in urethra Skin: warm Musculoskeletal: full muscle strength Neurologic: AAOx3 ICD10 Worksheet Patient Problems: Problems Problem Status Onset Frequent falls Acute Dehydration Acute Contusion of right hip Acute
--- NOTE | 2017-12-21 12:58 | SOAPPROG ---
TALIA Progress Note Assessment/Plan: Assessment: Plan: 12/19/17 17:32 12/21/17 12:56 1. Lightheadedness 2. Obesity I have spent time discussing her case with Dr. Murguia's break and we are going to do and nuclear stress test. The patient is not a good candidate to walk but we will do a pharmacologic stress test and also have Neurology see the patient. Does have significant lightheadedness complaints. Her vital signs that are attached are quite good and do not predict cardiovascular reason for lightheadedness. She has absolutely no angina. We will see what her study shows. I have not visited with the patient today or examined her today. There are no professional charges for today. I am told the patient has had absolutely no new. She is managing shingles. Objective: Vital Signs Temp Pulse Resp BP Pulse Ox 36.6 C 65 14 122/60 H 92 12/21/17 10:43 12/21/17 10:43 12/21/17 08:00 12/21/17 10:43 12/21/17 08:00 Laboratory Results 12/18/17 04:50 12/20/17 04:13 12/20/17 12/21/17 12/22/17 05:59 05:59 05:59 Intake Total 600 300 350 Output Total 650 Balance -50 300 350 ICD10 Worksheet Patient Problems: Problems Problem Status Onset Contusion of right hip Acute Dehydration Acute Frequent falls Acute
--- NOTE | 2017-12-21 16:43 | NEUROPROG ---
Assessment: [id number] - Neurology Consult: - CC: Lightheadedness - HPI: Pt brought to [facility] on 12/16/17 after she called paramedics to her home in [place], [place] (pt lives alone) with complaint of not enough energy/strength to get off the floor. Pt uses a walker at her baseline and has falls risk as well as a history of DM on insulin. She reported 6-7 weeks ago she began to feel lightheaded. She reported this made it very hard for her to get up to get something to drink and is the reason she became dehydrated. On admission she was noted to be dehydrated with rhabdomyolysis. She was noted to have bradycardia and possible CAD as well. Cardiology had seen her and recommended outpatient possible stress test but did not think her lightheadedness was likely from a cardiac issue. She was also noted to have shingles and was on acyclovir and gabapentin to address. Her dehydration and rhabdomyolysis improved with IVFs. On 12/21/17, Dr. Valenzuela consulted neurology to evaluate her lightheadedness. She was mentating well and had a normal neurologic exam (b /l leg weakness likely from deconditioning). I recommended a brain MRI w/ and w /o con, brain MRA, and carotid U/S to evaluate her chronic lightheadedness. - PMHx: gait instability, HTN, DM on insulin - SHx: lives alone in [place], [place] FHx: NC - ROS: Pt denied acute fever, total vision loss, active severe chest pain, respiratory failure, total body severe rash, total bowel/bladder incontinence, psychosis, active seizures, or active bleeding - O: VS reviewed General: Alert Eyes: Fundoscopic exam not able to visualize optic disks CV: Heart RRR, no murmur, no carotid bruit Lungs: Clear to auscultation bilaterally, no rhonchi or rales Neuro: - Mental: . Oriented x person/place/date . concentration appears normal . speech fluency/comprehension normal . memory appears normal . fund of knowledge appear intact - Cranial Nerves: . II: PERRL, VFFTC . III/IV/: EOMI, no nystagmus, normal smooth pursuits, no Ptosis . V: facial sensation intact to LT . VII: face symmetric to eye closure and smile . VIII: hearing intact to conversation . IX/X: uvula raises symmetrically . XI: SCM 5/5 B/L strength . XII: tongue protrudes midline w/nl strength - Motor: . Tone: normal tone in all 4 extremity . Strength: no pronator drift, strength 5/5 throughout (B/L delt, bic, tri, hand standpipe tender, hf/he, df/pf) except for bilateral proximal leg weakness 4+/5 likely due to deconditioning - Reflexes: B/L bic/BR/patella 2/4 - Sensory: all 4 extremity intact to light touch - Coord: [id number] wnl, SHABANA wnl, [id number] wnl - Gait: deferred - Labs: 12/18/17- CBC wnl 12/20/17- Chem Cl 115H CO2 21L Anion gap 7L Ca 8.3L - Rads: 12/16/17- R femur: No evidence for an acute fracture right femur. Degenerative change right hip and knee. (I personally visualized the images on 12/21/17) - Assessment: 1. Lightheadedness: Normal neurologic exam on 12/21/17 (other than proximal b/l leg weakness likely due to deconditioning). Cardiology saw and did not feel it was from her cardiac issues (bradycardia, possible CAD). I am not sure what is causing her chronic lightheadedness. I will assess for any structural issues with brain MRI w/ and w/o con and Carotid U/S and brain MRA to assess for any vascular problem causing lightheadedness. If these studies are unremarkable then I recommend addressing all acute issues (dehydration, recent fall) and then having her f/u in the neurology clinic in 4 weeks. Hopefully the situation will improve over time. - 2. Gait instability possibly related to obesity, diabetes, frequent Xanax use, and aging - 3. Recent dehydration with global weakness and fall on 12/16/17 - 4. Dehydration with rhabdomyolysis (resolving) - 5. Shingles: On gabapentin and acyclovir - Plan: - Patient is on contact and respiratory precautions due to Shingles, I did not order the brain MRI/MRA or carotid U/S as these can be done when patient no longer requires contact and respiratory precautions - Brain MRI w/ and w/o con to assess for any stroke or demyelination causing her lightheadedness - Carotid U/S and brain MRA to assess for any vascular problem causing lightheadedness - PT/OT/Speech consults to determine any limitations of ADLs or rehab needs - Recommend having physical therapy try vestibular rehab exercises as this may improve lightheadedness as well - Consider replacing Xanax with a safer medication for anxiety due to falls risk - Neurology will wait for imaging results (Brain MRI/MRA, carotid U/S) which can be ordered when patient is no longer under contact/respiratory precautions - F/U in 4 weeks in neurology clinic with Dr. Kan Objective: Vital Signs Temp Pulse Resp BP Pulse Ox 36.6 C 65 14 122/60 H 92 12/21/17 10:43 12/21/17 10:43 12/21/17 08:00 12/21/17 10:43 12/21/17 08:00 Laboratory Results 12/18/17 04:50 12/20/17 04:13 12/20/17 12/21/17 12/22/17 05:59 05:59 05:59 Intake Total 600 300 350 Output Total 650 Balance -50 300 350 Allergies/Adverse Reactions: levofloxacin [From Levaquin] Allergy (Verified 12/16/17 17:07) Other-Enter Comments Penicillins Allergy (Verified 12/16/17 17:07) Other-Enter Comments
[2017-12-21] MEDS ORDERED: DIAZEPAM 2 MG TAB PO ONE (18:30)
[2017-12-21] MEDS ORDERED: GADOBUTROL 10 ML VIAL IVP ONE (20:34)
[2017-12-21] MEDS: INSULIN GLARGINE 100 UNITS/ML UNIT SC SCH (21:20)
[2017-12-22] MEDS: ACYCLOVIR 200 MG CAP PO SCH ×4 (05:20→18:38)
[2017-12-22] MEDS: SULFAMETHOX/TMP 800/160 MG 1 TAB PO SCH (08:15)
[2017-12-22] MEDS: ENOXAPARIN 40 MG/0.4 ML SYR SC SCH (08:15)
[2017-12-22] MEDS: GABAPENTIN 300 MG CAP PO SCH ×2 (08:16→14:24)
[2017-12-22] MEDS ORDERED: D5W 1/2 NS 1,000 ML IV SCH (08:30)
--- NOTE | 2017-12-22 09:42 | NEUROPROG ---
Assessment: [id number] - Neurology Consult: - CC: F/U for Lightheadedness - Narrative Summary: Pt brought to [facility] on 12[facility]17 after she called paramedics to her home in [place], [place] (pt lives alone) with complaint of not enough energy/strength to get off the floor. Pt uses a walker at her baseline and has falls risk as well as a history of DM on insulin. She reported 6-7 weeks ago she began to feel lightheaded. She reported this made it very hard for her to get up to get something to drink and is the reason she became dehydrated. On admission she was noted to be dehydrated with rhabdomyolysis. She was noted to have bradycardia and possible CAD as well. Cardiology had seen her and recommended outpatient possible stress test but did not think her lightheadedness was likely from a cardiac issue. She was also noted to have shingles and was on acyclovir and gabapentin to address. Her dehydration and rhabdomyolysis improved with IVFs. On 12/21/17, Dr. Valenzuela consulted neurology to evaluate her lightheadedness. She was mentating well and had a normal neurologic exam (b /l leg weakness likely from deconditioning). I recommended a brain MRI w/ and w /o con, brain MRA, and carotid U/S to evaluate her chronic lightheadedness. - HPI: F/U 12/22/17. Brain MRI showed some small left sided subcortical acute strokes. Brain MRA and carotid U/S unremarkable. TTE on 12/17/17 and 24 hour telemetry on 12/20/17 showed no afib or cardiac thrombus. Pt has no focal neurologic deficits with NIH SS 0. On admission pt was not on aspirin or statin. Recommend beginning aspirin 81 mg qd and a statin (LDL goal < 70, currently 88) to address stroke as well as having cardiology place prolonged filing clerk looking for paroxysmal afib. Pt can f/u in 4 weeks with neurology clinic after discharge. - PMHx: gait instability, HTN, DM on insulin - SHx: lives alone in [place], [place] FHx: NC - ROS: Pt denied acute fever, total vision loss, active severe chest pain, respiratory failure, total body severe rash, total bowel/bladder incontinence, psychosis, active seizures, or active bleeding - Labs: 12/18/17- CBC wnl, H1AC 6.4 12/19/17- LDL 88 12/20/17- Chem Cl 115H CO2 21L Anion gap 7L Ca 8.3L - Rads: 12/17/17- TTE: EF 73%, no cardiac thrombus reported 12/20/17- 24 hour telemetry: no afib reported 12/21/17- Brain MRI w/ and w/o con: Two areas of punctate, 1 mm size diffuse abnormality at the left frontal and central white matter, indicative of acute to subacute lacunar infarcts. Moderate periventricular white matter disease and central volume loss otherwise. No intracranial hemorrhage or mass. Normal size of the ventricles considering degree of central volume loss. (I personally visualized the images on 12/22/17) 12/21/17- Brain MRA: unremarkable 12/21/17- Carotid U/S: No flow limiting stenosis - Assessment: 1. Small Left Frontal Strokes noted on 12/21/17 Brain MRI: Brain MRI showed some small left sided subcortical acute strokes. This may be the cause of the patients feeling of lightheadedness. Brain MRA and carotid U/S unremarkable. TTE on 12/17/17 and 24 hour telemetry on 12/20/17 showed no afib or cardiac thrombus. Pt has no focal neurologic deficits and NIH SS 0 on 12/21/17. On admission pt was not on aspirin or statin. Recommend beginning aspirin 81 mg qd and a statin (LDL goal < 70, currently 88) to address stroke as well as having cardiology place prolonged filing clerk looking for paroxysmal afib. Pt can f/u in 4 weeks with neurology clinic after discharge. - 2. Gait instability possibly related to obesity, diabetes, frequent Xanax use, and aging - 3. Recent dehydration with global weakness and fall on 12/16/17 - 4. Shingles: On gabapentin and acyclovir - Plan: - PT/OT/Speech consults to determine any limitations of ADLs or rehab needs - Recommend having physical therapy try vestibular rehab exercises as this may improve lightheadedness as well - Recommend cardiology place prolonged filing clerk prior to hospital discharge looking for afib as cause of stroke - Begin aspirin 81 mg qd for stroke prevention - Begin statin with LDL goal < 70 (88) - Work closely with outpatient PCM to ensure blood pressure < 140/90, H1AC < 7.0 , and LDL < 70 - F/U in 4 weeks in neurology clinic with Dr. Kan - No further neurologic w/u needed, neurology will sign off Objective: Vital Signs Temp Pulse Resp BP Pulse Ox 36.7 C 51 L 16 130/61 H 90 L 12/22/17 08:00 12/22/17 08:00 12/22/17 08:00 12/22/17 08:00 12/22/17 08:00 Laboratory Results 12/18/17 04:50 12/20/17 04:13 12/21/17 12/22/17 12/23/17 05:59 05:59 05:59 Intake Total 300 2090 Output Total 500 Balance 300 1590 Allergies/Adverse Reactions: levofloxacin [From Levaquin] Allergy (Verified 12/16/17 17:07) Other-Enter Comments Penicillins Allergy (Verified 12/16/17 17:07) Other-Enter Comments
[2017-12-22] MEDS ORDERED: REGADENOSON 0.4 MG/5 ML SYR IVP ONE (09:49)
--- NOTE | 2017-12-22 10:54 | CPR ---
[f rep st] NONINVASIVE CARDIAC PROCEDURE REPORT DATE OF PROCEDURE: 12/22/2017 PROCEDURE: Lexiscan nuclear stress test REASON FOR TEST: Chest discomfort. DESCRIPTION OF PROCEDURE: Resting EKG shows a sinus bradycardia with a rate of 48, inferior lead idi oventricular conduction delay, slow R-wave progression in anterior septal leads. Resting blood press ure is 122/82, oxygen saturation 96%. She is asymptomatic prior to initiation of test. She does hav e some left hip discomfort due to shingles. STRESS PORTION: Lexiscan was injected rapidly, followed by saline flush. Cardiolite was then inject ed, followed by saline flush. She remained asymptomatic with the exception of facial flushing during the testing portion. Peak blood pressure 128/86, peak heart rate 80, oxygen saturation 96%. There were no EKG changes. RECOVERY: She did spontaneously recover. Recovery blood pressure 110/58, heart rate 63 and regular, oxygen saturation 95%. There were no EKG changes during the recovery period. At this time, she cur rently is stable for nuclear imaging. /[id number]/MODL
--- NOTE | 2017-12-22 12:22 | ASMTCMCOM ---
CM Note CM Note Notes: Chart reviewed. Nothing acute on stress test. May discharge today. CM to follow. Plan: To [facility] when medically stable. Date Signed: 12/22/2017 12:21 PM Electronically Signed By:Mayra Ascencio RN
[2017-12-22 12:46] VITALS: BP 119/62
--- NOTE | 2017-12-22 13:16 | SOAPPROG ---
TALIA Progress Note Assessment/Plan: Assessment: Plan: 12/19/17 17:32 12/21/17 12:56 1. Lightheadedness 2. Obesity I have spent time discussing her case with Dr. Murguia's break and we are going to do and nuclear stress test. The patient is not a good candidate to walk but we will do a pharmacologic stress test and also have Neurology see the patient. Does have significant lightheadedness complaints. Her vital signs that are attached are quite good and do not predict cardiovascular reason for lightheadedness. She has absolutely no angina. We will see what her study shows. I have not visited with the patient today or examined her today. There are no professional charges for today. I am told the patient has had absolutely no new. She is managing shingles. 12/22/17 13:05 Nuclear ett pending will do 48 hr holter placing it prior to d/c pt to follow up with nurse practioner at [facility] 10 days after holter removed and w her pcp this will be our plan unless further testing alters the plan . . Objective: Vital Signs Temp Pulse Resp BP Pulse Ox 36.7 C 56 L 17 119/62 90 L 12/22/17 12:00 12/22/17 12:00 12/22/17 12:00 12/22/17 12:00 12/22/17 12:00 Laboratory Results 12/18/17 04:50 12/20/17 04:13 12/21/17 12/22/17 12/23/17 05:59 05:59 05:59 Intake Total 300 2090 Output Total 500 Balance 300 1590 ICD10 Worksheet Patient Problems: Problems Problem Status Onset Contusion of right hip Acute Dehydration Acute Frequent falls Acute
[2017-12-22] MEDS: traMADol 50 MG TAB PO PRN (14:28)
--- NOTE | 2017-12-22 15:37 | ASMTCMCOM ---
CM Note CM Note Notes: Patient medically cleared for discharge to [facility] in [place] . TransporT at 6 pm. Final orders and PASSR set. RN has number to call report. CM available should needs arise. Plan: to [facility] via wheel chair van about 6pm. Date Signed: 12/22/2017 03:36 PM Electronically Signed By:Mayra Ascencio RN
--- NOTE | 2017-12-22 15:42 | ASMTLACE ---
LACE Length of stay for Answers: 4-6 days current admission Acuity / Level of Answers: Yes Care: Did the patient have an inpatient admission? Comorbidities - select Answers: Diabetes (uncontrolled or all that apply controlled) History of falls Other Notes: HTN # of Emergency department Answers: 1-2 visits in the last 6 months Score: 13 Date Signed: 12/22/2017 03:41 PM Electronically Signed By:Mayra Ascencio RN
--- NOTE | 2017-12-22 16:11 | PDIAF ---
- Diagnosis Diagnosis: fall, weakness Code Status: Do Not Resuscitate - Medication Management Discharge Medications: Medications to Continue on Transfer ALPRAZolam [Xanax 1 MG (*)] 1 mg PO DAILY PRN 12/16/17 [Last Taken 12/15/17] Gabapentin [Neurontin 300 MG (*)] 300 mg PO HS 12/16/17 [Last Taken 12/15/17] Sulfamethox/Tmp 800/160 mg [Bactrim DS] 1 tab PO BID 12/16/17 [Last Taken ] Acyclovir [Zovirax 200 mg (*)] 800 mg PO 5XD cap 12/22/17 [Last Taken Unknown] Aspirin [Aspirin 81mg (*)] 81 mg PO DAILY #30 tab 12/22/17 [Last Taken Unknown] Insulin Glargine [Lantus] 15 unit SC HS 30 Days ml 12/22/17 [Last Taken Unknown ] Rosuvastatin Calcium 5 mg PO HS #30 tablet 12/22/17 [Last Taken Unknown] Discharge Medications: Refer to the Discharge Home Medication list for PRN reason. - Orders Services needed: Registered Nurse, Certified [employer], Physical Therapy, Occupational Therapy Isolation Type: Contact Isolation Additional Instructions: Please follow-up with [facility] to get your 48 hour Holter Monitor instructions and sent to you - Follow Up Care Current Providers and Referrals: Patient,NotPresent [Unknown] - As per Instructions Eldon Kan DO [Medical Doctor] -
--- NOTE | 2017-12-22 16:36 | GDS ---
[f rep st] DISCHARGE SUMMARY ALL DIAGNOSES: 1. Fall, debility, with inability to get up. 2. New diagnosis of stroke. 3. Lightheadedness. 4. Bradycardia. 5. Profound dehydration and hypotension. 6. Shingles. 7. Msj-NC-wyufljd elevation myocardial infarction with negative nuclear stress test. 8. Diabetes mellitus type 2. 9. Mild rhabdomyolysis. 10. History of methicillin-resistant Staphylococcus aureus, on chronic Bactrim suppression. HOSPITAL COURSE: This is a 72-year-old female who fell at home, was unable to get up. She was admit moon profoundly hypotensive, which slowly resolved with IV fluids. 1. Shingles: She was started on acyclovir, as well as gabapentin. Acyclovir should be continued th 12/29. This is on her right hip. 2. NSTEMI: She had a troponin elevation as high as 0.4. She had an echocardiogram, which showed no wall motion abnormalities. She had a nuclear stress test, which was negative for any ischemia or in farct. 3. Stroke: Seen by Neurology for ongoing lightheadedness. MRI of the brain showed 2 punctate 1 mm lacunar infarcts. MRA, as well as ultrasound of her carotids were negative. She has been started on aspirin and statin. She has been given instructions to have a Holter monitor placed as an outpatien t for ongoing cardiac monitoring. Notably on telemetry here, she had no atrial fibrillation. 4. Diabetes mellitus type 2: Her insulin was markedly decreased here. She is now currently just ge tting 15 units nightly. Would follow her morning sugars. 5. Bradycardia: She does seem to have an appropriate heart rate increase with activity. She has be en as low as into the 40s. She is not on any brian blockers. I do not think this is really causing her lightheadedness. She was seen by Cardiology, who agrees. DISPOSITION: She is discharged in stable condition to [facility]. BILLING: I spent more than 30 minutes on the day of discharge coordinating care. Copy requested to: Dr. Vanessa Park [facility] /[id number]/MODL
--- NOTE | 2017-12-23 15:06 | ASDISCHSUM ---
Discharge Information Plan Status:SNF Medically Cleared to Leave:12/22/2017 Discharge Date:12/22/2017 08:43 PM CM D/C Disposition:[facility] Facility ADT D/C Disposition:[facility] Facility Projected Discharge Date:12/22/2017 11:00 AM Transportation at D/C:Wheelchair Van Discharge Delay Reason: Follow-Up Date:12/22/2017 11:00 AM Discharge Slot: Final Diagnosis: Placement Information Referral Type:*Prison/SNF Referral ID:[id number] Provider Name:[facility]//[facility] Address 1:[address] Address 2: [facility]:[place] Selection Factors: State:[place] Patient Contact Information Contact Name:HEIDY Relationship:Friend Address: Work Phone: City: [facility] Phone: [facility]/Zip Code: Email: Financial Information Financial Class:Medicare Primary Plan Desc:MEDICARE INPATIENT Primary Plan Number:[id number] Secondary Plan Desc:HE [facility] Secondary Plan Number:[id number] Assessment Information [facility] CM Progress Note CM Note CM Note Notes: Pt in ED by ambulance from [place] after a friend found her on the floor of her home. Her friend informed EMS that she may have been lying on the floor for several days. Pt is being admitted for obsrvation. She lives alone with her Rottweiler and has a very limited support system. After care will need to be assessed with the possibilty of SNF. DC needs TBD, CM to follow. Date Signed: 12/16/2017 04:12 PM Electronically Signed By:David Caicedo LCSW [facility] CM Progress Note CM Note CM Note Notes: Spoke w/PT, she lives alone with her dog in [place]. She states that, she has lots of good friends that help her out and they are taking care of her dog. Advised pt that PT/OT recommend she go to SNF before returning home, pt reluctantly agrees and would like referrals sent to SNFs in [place]. Referrals sent to [facility] and [facility]. DC Plan: SNF Date Signed: 12/17/2017 04:35 PM Electronically Signed By:Dianna Garduno RN [facility] Progress Note IRWIN Note IRWIN Note Notes: IRWIN chart review, [facility] is unable to accept new patients until Tu or Weds. IRWIN called [facility] as there is currently no response from facility, IRWIN was unable to connect with anyone in admissions. IRWIN shared this info with RN. GAYLE to follow. Current D/C Plan: SNF. Date Signed: 12/18/2017 02:48 PM Electronically Signed By:Lorrie Jorgensen LACE JOLENE Length of stay for Answers: 4-6 days current admission Acuity / Level of Answers: Yes Care: Did the patient have an inpatient admission? Comorbidities - select Answers: Diabetes (uncontrolled or all that apply controlled) History of falls Other Notes: HTN # of Emergency department Answers: 1-2 visits in the last 6 months Score: 13 Date Signed: 12/22/2017 03:41 PM Electronically Signed By:Mayra Ascencio RN [facility] CM Progress Note CM Note CM Note Notes: CM met w/ pt for dispo planning. CM informed pt that both [facility] and [facility] have accepted. Pt would like to go to [facility]. CM notified Jazmin at [facility]. Updates sent over. CM available for changes. Plan: [facility] Date Signed: 12/20/2017 01:32 PM Electronically Signed By:BARBARA Landon [facility] CM Progress Note CM Note CM Note Notes: Chart reviewed. Nothing acute on stress test. May discharge today. CM to follow. [facility]. Date Signed: 12/22/2017 12:21 PM Electronically Signed By:Mayra Ascencio RN [facility] CM Progress Note CM Note CM Note Notes: Patient medically cleared for discharge to [facility] in [place] . TransporT at 6 pm. Final orders and PASSR set. RN has number to call report. CM available should needs arise. Plan: to [facility] via wheel chair van about 6pm. Date Signed: 12/22/2017 03:36 PM Electronically Signed By:Mayra Ascencio RN Intervention Information
== END 2017-12-22 20:43 | DRG 640 ==
LOC: EDUNIT# → F3E 18:14
PROVIDERS: ADMIT Internal Medicine; ATTEND Internal Medicine
DX: E86.0 Dehydration (principal); R79.89 Other specified abnormal findings of blood chemistry; M62.82 Rhabdomyolysis; E87.0 Hyperosmolality and hypernatremia; E87.2 Acidosis; I63.522 Cerebral infarction due to unspecified occlusion or stenosis of left anterior cerebral artery; R29.700 NIHSS score 0; I21.A1 Myocardial infarction type 2; S70.01XA Contusion of right hip, initial encounter; W01.0XXA Fall on same level from slipping, tripping and stumbling without subsequent striking against object, initial encounter; Y92.013 Bedroom of single-family (private) house as the place of occurrence of the external cause; Y99.8 Other external cause status; B02.9 Zoster without complications; E66.01 Morbid (severe) obesity due to excess calories; Z68.41 Body mass index [BMI] 40.0-44.9, adult; I27.23 Pulmonary hypertension due to lung diseases and hypoxia; R26.89 Other abnormalities of gait and mobility; L30.8 Other specified dermatitis; E11.9 Type 2 diabetes mellitus without complications; Z79.4 Long term (current) use of insulin; I10 Essential (primary) hypertension; Z86.14 Personal history of Methicillin resistant Staphylococcus aureus infection; Z79.2 Long term (current) use of antibiotics
CPT/HCPCS: 97116-GP; 97161-GP; 97165-GO; 97530-GP; 97535-GO; A9500; A9585; G8978-GP-CK; G8979-GP-CI; G8987-GO-CL; G8988-GO-CJ; J1650; J1815; J2785; Q9967

== ENCOUNTER 2018-05-31 14:41 | Inpatient (IN) | payer OTHER ==
[2018-05-31] MEDS ORDERED: NS 1,000 ML IV ONE ×2 (15:03→15:52)
[2018-05-31 15:19] LABS: PLATELET COUNT 307 10^3/uL (150-400)
[2018-05-31 15:26] LABS: INR 1.4 (0.83-1.16); PROTIME(PATIENT) 17.3 SEC (12.0-15.0)
[2018-05-31] MEDS ORDERED: VANCOMYCIN HCL/NORMAL SALINE 250 ML IV ONE (15:53)
--- NOTE | 2018-05-31 15:56 | EDPHY ---
H & P Time Seen by Provider: 05/31/18 14:49 HPI/ROS: Chief complaint. Abdominal pain, diarrhea, weakness HPI. Patient is a 72-year-old female here by EMS with multiple complaints. She has a chronic abdominal infection between the skin folds of her lower abdomen. She has had this for quite a while and has been treating it with an antibiotic ointment. She ran out of appointment a week ago and it has gotten quite a bit worse and painful. She has also had fever for 1 week. She has right hip pain for about a week. No fall. It occurred while stretching and she felt she heard a pop. 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 She has no cough, chest pain, shortness of breath. She does have urinary frequency. She has also been having diarrhea. Unable to walk. Lives by self. ROS 10 systems were reviewed and negative with the exception of the elements mentioned in the history of present illness Past Medical/Surgical History: Hypertension and diabetes Social History: Single, nonsmoker, no alcohol Smoking Status: Never smoked Physical Exam: General Appearance: Alert well-developed female moderate distress. Vitals show temp 37.7 degrees with heart rate 101 and initial blood pressure 93/44 Eyes: Pupils equal and round no pallor or injection. ENT, Mouth: Mucous membranes are moist. Respiratory: There are no retractions, lungs are clear to auscultation. Cardiovascular: Regular rate and rhythm. Gastrointestinal: Abdomen is soft with erythematous exudate of rash between the pannus of her lower abdomen. Neurological: Awake and alert, sensory and motor exams grossly normal. Skin: See abdominal exam Musculoskeletal: Neck is supple nontender. Extremities symmetrical, full range of motion. Psychiatric: Patient is oriented X 3, there is no agitation. Constitutional: Initial Vital Signs Temperature (C) 37.7 C 05/31/18 14:53 Heart Rate 101 H 05/31/18 14:53 Respiratory Rate 18 05/31/18 14:53 Blood Pressure 93/44 L 05/31/18 14:53 O2 Sat (%) 94 05/31/18 14:53 O2 Delivery Mode Room Air Allergies/Adverse Reactions: levofloxacin Allergy (Unknown, Verified 05/31/18 14:53) Other-Enter Comments Penicillins Allergy (Verified 05/31/18 14:53) Other-Enter Comments Home Medications: Medication Instructions Recorded ALPRAZolam [Xanax 1 MG (*)] 1 mg PO DAILY PRN 12/16/17 Gabapentin [Neurontin 300 MG (*)] 300 mg PO HS 12/16/17 Sulfamethox/Tmp 800/160 mg 1 tab PO BID 12/16/17 [Bactrim DS] Acyclovir [Zovirax 200 mg (*)] 800 mg PO 5XD cap 12/22/17 Aspirin [Aspirin 81mg (*)] 81 mg PO DAILY #30 tab 12/22/17 Insulin Glargine [Lantus] 15 unit SC HS 30 Days ml 12/22/17 Rosuvastatin Calcium 5 mg PO HS #30 tablet 12/22/17 Medical Decision Making - Diagnostics EKG Interpretation: EKG interpreted by me shows sinus tachycardia. First-degree AV block. Normal axis. QRS shows is normal ST-T segments show no elevation or depression. Rate is 100 Imaging Results: Imaging Impressions Chest X-Ray 05/31/18 15:03 Impression: Hypoventilatory chest with cardiomegaly, with mild peribronchial thickening could be related to fluid overload or bronchitis. One-view chest x-ray shows no obvious pneumonia Hip and femur interpreted by me is negative for fracture dislocation Procedures: Sepsis workup IV vancomycin after blood cultures Clale catheter After 1 L normal saline patient has pressure still about 93/44. Patient is given 2nd L of saline. ED Course/Re-evaluation: Serial evaluations patient is stable Re-evaluation again at 5:20 p.m.. Patient and I discussed imaging and lab results. We discussed treatment plan including recommendation for admission. She expresses understanding and agreement. Current blood pressure is 104/67 and heart rate 90 Consult and discussed the case with Dr. Gerber, hospitalist, who agrees to the admission Differential Diagnosis: I considered sepsis. Patient has significant cellulitis to the skin of her lower abdomen. She also has urinary tract infection. I considered pneumonia. She also complained of right hip pain but there is no evidence for fracture dislocation - Data Points Laboratory Results: Laboratory Results 05/31/18 15:10 05/31/18 15:10 05/31/18 05/31/18 05/31/18 16:44 15:45 15:29 WBC RBC Hgb Hct MCV MCH MCHC RDW Plt Count MPV Neut % (Auto) Lymph % (Auto) Benson % (Auto) Eos % (Auto) Baso % (Auto) Nucleat RBC Rel Count Absolute Neuts (auto) Absolute Lymphs (auto) Absolute Monos (auto) Absolute Eos (auto) Absolute Basos (auto) Absolute Nucleated RBC Immature Gran % Immature Gran # PT INR APTT VBG Lactic Acid 1.8 mmol/L mmol/L (0.7-2.1) Sodium Potassium Chloride Carbon Dioxide Anion Gap BUN Creatinine Estimated GFR Glucose Calcium Total Bilirubin POC Troponin I 0.02 ng/mL ng/mL (0.00-0.08) Urine Color JASPREET Urine Appearance HAZY Urine pH 5.0 (5.0-7.5) Ur Specific [place] 1.024 (1.002-1.030) Urine Protein 1+ H (NEGATIVE) Urine Ketones TRACE H (NEGATIVE) Urine Blood 2+ H (NEGATIVE) Urine Nitrate NEGATIVE (NEGATIVE) Urine Bilirubin NEGATIVE (NEGATIVE) Urine Urobilinogen NEGATIVE EU EU (0.2-1.0) Ur Leukocyte Esterase 2+ H (NEGATIVE) Urine RBC 5-10 /hpf H /hpf (0-3) Urine WBC 25-50 /hpf H /hpf (0-3) Ur Epithelial Cells TRACE /lpf /lpf (NONE-1+) Urine Bacteria 4+ /hpf H /hpf (NONE SEEN) Urine Glucose 1+ H (NEGATIVE) 05/31/18 05/31/18 05/31/18 15:10 15:10 15:10 WBC 17.39 10^3/uL H 10^3/uL (3.80-9.50) RBC 4.41 10^6/uL 10^6/uL (4.18-5.33) Hgb 13.4 g/dL g/dL (12.6-16.3) Hct 39.2 % % (38.0-47.0) MCV 88.9 fL fL (81.5-99.8) MCH 30.4 pg pg (27.9-34.1) MCHC 34.2 g/dL g/dL (32.4-36.7) RDW 12.2 % % (11.5-15.2) Plt Count 307 10^3/uL 10^3/uL (150-400) MPV 9.9 fL fL (8.7-11.7) Neut % (Auto) 85.7 % H % (39.3-74.2) Lymph % (Auto) 8.3 % L % (15.0-45.0) Benson % (Auto) 5.0 % % (4.5-13.0) Eos % (Auto) 0.2 % L % (0.6-7.6) Baso % (Auto) 0.3 % % (0.3-1.7) Nucleat RBC Rel Count 0.0 % % (0.0-0.2) Absolute Neuts (auto) 14.91 10^3/uL H 10^3/uL (1.70-6.50) Absolute Lymphs (auto) 1.44 10^3/uL 10^3/uL (1.00-3.00) Absolute Monos (auto) 0.87 10^3/uL H 10^3/uL (0.30-0.80) Absolute Eos (auto) 0.03 10^3/uL 10^3/uL (0.03-0.40) Absolute Basos (auto) 0.05 10^3/uL 10^3/uL (0.02-0.10) Absolute Nucleated RBC 0.00 10^3/uL 10^3/uL (0-0.01) Immature Gran % 0.5 % % (0.0-1.1) Immature Gran # 0.09 10^3/uL 10^3/uL (0.00-0.10) PT 17.3 SEC H SEC (12.0-15.0) INR 1.40 H (0.83-1.16) APTT 30.0 SEC SEC (23.0-38.0) VBG Lactic Acid Sodium 134 mEq/L L mEq/L (135-145) Potassium 4.4 mEq/L mEq/L (3.3-5.0) Chloride 99 mEq/L mEq/L (97-110) Carbon Dioxide 21 mEq/l L mEq/l (22-31) Anion Gap 14 mEq/L mEq/L (6-14) BUN 24 mg/dL H mg/dL (7-23) Creatinine 0.6 mg/dL mg/dL (0.6-1.0) Estimated GFR > 60 Glucose 227 mg/dL H mg/dL (70-100) Calcium 8.8 mg/dL mg/dL (8.5-10.4) Total Bilirubin 0.9 mg/dL mg/dL (0.1-1.4) POC Troponin I Urine Color Urine Appearance Urine pH Ur Specific [place] Urine Protein Urine Ketones Urine Blood Urine Nitrate Urine Bilirubin Urine Urobilinogen Ur Leukocyte Esterase Urine RBC Urine WBC Ur Epithelial Cells Urine Bacteria Urine Glucose Medications Given: Discontinued Medications Sodium Chloride (Ns) 1,000 mls @ 0 mls/hr IV EDNOW ONE; Wide Open PRN Reason: Protocol Stop: 05/31/18 15:04 Last Admin: 05/31/18 15:12 Dose: 1,000 mls Sodium Chloride (Ns) 1,000 mls @ 0 mls/hr IV EDNOW ONE; Wide Open PRN Reason: Protocol Stop: 05/31/18 15:53 Last Admin: 05/31/18 16:42 Dose: 1,000 mls Vancomycin/Sodium Chloride (Vancomycin 1 Gm (Premix)) 250 mls @ 250 mls/hr IV EDNOW ONE PRN Reason: Protocol Stop: 05/31/18 16:52 Last Admin: 05/31/18 16:42 Dose: 250 mls Point of Care Test Results: Chemistry 05/31/18 15:29 POC Troponin I 0.02 ng/mL ng/mL (0.00-0.08) Departure - Departure Disposition: [facility] Inpatient Acute Clinical Impression: Cellulitis Qualifiers: Site of cellulitis: trunk Site of cellulitis of trunk: abdominal wall Qualified Code(s): L03.311 - Cellulitis of abdominal wall Urinary tract infection Qualifiers: Urinary tract infection type: site unspecified Hematuria presence: with hematuria Qualified Code(s): N39.0 - Urinary tract infection, site not specified Condition: Serious Referrals: Patient,NotPresent [Unknown] - As per Instructions
[2018-05-31] MEDS ORDERED: ACETAMINOPHEN 325 MG TAB PO PRN (18:27)
[2018-05-31] MEDS ORDERED: PROMETHAZINE HCL 25 MG/ML INJ IVP PRN (18:27)
[2018-05-31] MEDS ORDERED: ONDANSETRON DISINTEGRATING 4 MG TAB PO PRN (18:27)
[2018-05-31] MEDS ORDERED: ONDANSETRON 4 MG/2 ML VIAL IVP PRN (18:27)
[2018-05-31] MEDS ORDERED: HYDROmorphONE/DILAUDID 1 MG/ML INJ IVP PRN (18:27)
[2018-05-31] MEDS ORDERED: D50W 25 GM/50 ML SYR IVP PRN (18:31)
--- NOTE | 2018-05-31 19:34 | PDGENHP ---
History and Physical - Chief Complaint redness/pain under pannus - History of Present Illness 72 yo F with PMH of HTN, DM, morbid obesity and CVA presenting from home with concerns of redness and pain in the area under her pannus. She notes it has been in this condition for at least the last several weeks. She is in a fair amount of distress during my evaluation and this history is limited by that. She apparently lives in [place] in a small cabin and there have been concerns raised in the past surrounding her safety there. She is quite disheveled and malodorous on exam. She notes she has had a fever x 1 week. She notes that the area is very painful but otherwise had no complaints. History Information - Allergies/Home Medication List Allergies/Adverse Reactions: levofloxacin Allergy (Unknown, Verified 05/31/18 14:53) Other-Enter Comments Penicillins Allergy (Verified 05/31/18 14:53) Other-Enter Comments Home Medications: ALPRAZolam [Xanax 1 MG (*)] 1 mg PO DAILY PRN 12/16/17 [Last Taken 12/15/17] Gabapentin [Neurontin 300 MG (*)] 300 mg PO HS 12/16/17 [Last Taken 12/15/17] Sulfamethox/Tmp 800/160 mg [Bactrim DS] 1 tab PO BID 12/16/17 [Last Taken ] Insulin Glargine [Lantus] 22 unit SC HS 05/31/18 [Last Taken Unknown] LORazepam [Ativan (*)] 0.5 mg PO 05/31/18 [Last Taken Unknown] Losartan/Hydrochlorothiazide [Losartan-Hctz 100-12.5 mg Tab] 1 each PO DAILY [Last Taken Unknown] Nystatin Powder [Mycostatin Powder (RX)] 1 marleny TOP DAILY 05/31/18 [Last Taken Unknown] Rivaroxaban [Xarelto 10mg (*)] 20 mg PO DAILY 05/31/18 [Last Taken Unknown] Sertraline HCl [Zoloft 100mg (*)] 100 mg PO DAILY 05/31/18 [Last Taken Unknown] I have personally reviewed and updated: family history, medical history, social history, surgical history - Past Medical History CVA, diabetes type 2, hypertension, hyperlipidemia Additional medical history: chronic anxiety with chronic benzo use. morbid obesity. gait instability - Surgical History Reports: no pertinent surgical hx - Family History Positive for: non-pertinent - Social History Smoking Status: Never smoked Alcohol Use: None Drug Use: None Additional social history: lives alone in cabin in [place] Review of Systems Review of Systems: ROS: 10pt was reviewed & negative except for what was stated in HPI & below Physical Exam Physical Exam: Temp Pulse Resp BP Pulse Ox 38.3 C 99 18 105/69 90 L 05/31/18 19:21 05/31/18 19:21 05/31/18 19:21 05/31/18 19:21 05/31/18 19:21 Constitutional: chronically ill appearing, obese, uncomfortable, unkempt Eyes: PERRL, anicteric sclera Ears, Nose, Mouth, Throat: hearing normal, poor dentition, dry mucous membranes Cardiovascular: regular rate and rhythym, no murmur, rub, or gallop, edema Respiratory: no rales or rhonchi, clear to auscultation Gastrointestinal: normoactive bowel sounds, soft, non-tender abdomen Genitourinary: no bladder tenderness Skin: warm, erythema, other (pannus area with significant erythema/purulence, area under breasts with erythema) Musculoskeletal: no muscle tenderness Neurologic: AAOx3 Psychiatric: interacting appropriately, anxious Lab Data & Imaging Review 05/31/18 15:10 05/31/18 15:10 WBC 17.39 10^3/uL (3.80-9.50) H 05/31/18 15:10 RBC 4.41 10^6/uL (4.18-5.33) 05/31/18 15:10 Hgb 13.4 g/dL (12.6-16.3) 05/31/18 15:10 Hct 39.2 % (38.0-47.0) 05/31/18 15:10 MCV 88.9 fL (81.5-99.8) 05/31/18 15:10 MCH 30.4 pg (27.9-34.1) 05/31/18 15:10 MCHC 34.2 g/dL (32.4-36.7) 05/31/18 15:10 RDW 12.2 % (11.5-15.2) 05/31/18 15:10 Plt Count 307 10^3/uL (150-400) 05/31/18 15:10 MPV 9.9 fL (8.7-11.7) 05/31/18 15:10 Neut % (Auto) 85.7 % (39.3-74.2) H 05/31/18 15:10 Lymph % (Auto) 8.3 % (15.0-45.0) L 05/31/18 15:10 [place] % (Auto) 5.0 % (4.5-13.0) 05/31/18 15:10 Eos % (Auto) 0.2 % (0.6-7.6) L 05/31/18 15:10 Baso % (Auto) 0.3 % (0.3-1.7) 05/31/18 15:10 Nucleat RBC Rel Count 0.0 % (0.0-0.2) 05/31/18 15:10 Absolute Neuts (auto) 14.91 10^3/uL (1.70-6.50) H 05/31/18 15:10 Absolute Lymphs (auto) 1.44 10^3/uL (1.00-3.00) 05/31/18 15:10 Absolute Monos (auto) 0.87 10^3/uL (0.30-0.80) H 05/31/18 15:10 Absolute Eos (auto) 0.03 10^3/uL (0.03-0.40) 05/31/18 15:10 Absolute Basos (auto) 0.05 10^3/uL (0.02-0.10) 05/31/18 15:10 Absolute Nucleated RBC 0.00 10^3/uL (0-0.01) 05/31/18 15:10 Immature Gran % 0.5 % (0.0-1.1) 05/31/18 15:10 Immature Gran # 0.09 10^3/uL (0.00-0.10) 05/31/18 15:10 PT 17.3 SEC (12.0-15.0) H 05/31/18 15:10 INR 1.40 (0.83-1.16) H 05/31/18 15:10 APTT 30.0 SEC (23.0-38.0) 05/31/18 15:10 VBG Lactic Acid 1.8 mmol/L (0.7-2.1) 05/31/18 15:45 Sodium 134 mEq/L (135-145) L 05/31/18 15:10 Potassium 4.4 mEq/L (3.3-5.0) 05/31/18 15:10 Chloride 99 mEq/L (97-110) 05/31/18 15:10 Carbon Dioxide 21 mEq/l (22-31) L 05/31/18 15:10 Anion Gap 14 mEq/L (6-14) 05/31/18 15:10 BUN 24 mg/dL (7-23) H 05/31/18 15:10 Creatinine 0.6 mg/dL (0.6-1.0) 05/31/18 15:10 Estimated GFR > 60 05/31/18 15:10 Glucose 227 mg/dL (70-100) H 05/31/18 15:10 Calcium 8.8 mg/dL (8.5-10.4) 05/31/18 15:10 Total Bilirubin 0.9 mg/dL (0.1-1.4) 05/31/18 15:10 POC Troponin I 0.02 ng/mL (0.00-0.08) 05/31/18 15:29 Urine Color JASPREET 05/31/18 16:44 Urine Appearance HAZY 05/31/18 16:44 Urine pH 5.0 (5.0-7.5) 05/31/18 16:44 Ur Specific [place] 1.024 (1.002-1.030) 05/31/18 16:44 Urine Protein 1+ (NEGATIVE) H 05/31/18 16:44 Urine Ketones TRACE (NEGATIVE) H 05/31/18 16:44 Urine Blood 2+ (NEGATIVE) H 05/31/18 16:44 Urine Nitrate NEGATIVE (NEGATIVE) 05/31/18 16:44 Urine Bilirubin NEGATIVE (NEGATIVE) 05/31/18 16:44 Urine Urobilinogen NEGATIVE EU (0.2-1.0) 05/31/18 16:44 Ur Leukocyte Esterase 2+ (NEGATIVE) H 05/31/18 16:44 Urine RBC 5-10 /hpf (0-3) H 05/31/18 16:44 Urine WBC 25-50 /hpf (0-3) H 05/31/18 16:44 Ur Epithelial Cells TRACE /lpf (NONE-1+) 05/31/18 16:44 Urine Bacteria 4+ /hpf (NONE SEEN) H 05/31/18 16:44 Urine Glucose 1+ (NEGATIVE) H 05/31/18 16:44 Visualized and Interpreted Chest x-ray results: Yes Chest X-Ray results: other (peribronchial thickening) Visualized and Interpreted EKG results: Yes EKG additional interpertation: sinus tachycardia Assessment & Plan Assessment: Cellulitis (Acute) Urinary tract infection (Acute) 72 yo F with hx of HTN, DM, morbid obesity and CVA presenting with cellulitis # cellulitis: affecting the area underneath her pannus as well as under her breasts, purulent drainage associated with these areas. Suspect initial issue was intertrigo with sharif infection with satellite lesions and beefy redness but suspect now bacterial infection as well. Started on vancomycin which will be continued, blood and wound cultures pending, requesting ID consultation in am. Has hx of MRSA infection in the past. # intertrigo: as above, patient has been on topical nystatin but will change to topical ketoconazole for now, requesting wound care to evaluate for help with drying/cleaning the affected areas # sepsis: with leukocytosis and slightly elevated HR on arrival, lactate wnl and no e/o end organ dysfunction # DM2: will continue home glargine and add SSI coverage # HTN: currently mildly hypotensive since arrival, will hold bp meds for now # hx of lacunar CVA: started on xarelto for presumed a fib (do not have access to those records), no significant continued sxs # gait instability: PT/OT to see, was fairly recently discharged to snf # FTT: concern that patient so disheveled and prior reports that her home was very unkempt etc--CM to get involved, pt/ot # IP status, will require > 48 hours stay for eval/mgmt of above Patient new to my care. Old records reviewed and summarized as above. Care plan reviewed with ER doctor including plans for abx.
[2018-05-31] MEDS: KETOCONAZOLE 2% 15 GM CREAM TP SCH (21:11)
--- NOTE | 2018-05-31 21:16 | CPEKG ---
Test Reason : OPEN Blood Pressure : / mmHG Vent. Rate : 100 BPM Atrial Rate : 100 BPM P-R Int : 230 ms QRS Dur : 118 ms QT Int : 361 ms P-R-T Axes : 033 021 015 degrees QTc Int : 466 ms Sinus tachycardia Prolonged CO interval Nonspecific intraventricular conduction delay Low voltage, extremity leads Confirmed by Hussein Lantigua ([id number]) on 05/31/2018 9:15:51 PM Referred By: Confirmed By:Hussein Lantigua
[2018-05-31] MEDS ORDERED: HYDROmorphONE/DILAUDID 2 MG/ML INJ IVP PRN (21:30)
[2018-05-31] MEDS: HYDROCODONE/APAP 5/325 TAB PO PRN (21:34)
[2018-05-31] MEDS: GABAPENTIN 300 MG CAP PO SCH (21:34)
[2018-05-31] MEDS: INSULIN GLARGINE 100 UNITS/ML UNIT SC SCH (21:35)
[2018-05-31] MEDS ORDERED: NYSTATIN POWDER 15 GM BTL TP SCH (22:00)
[2018-06-01 05:24] LABS: PLATELET COUNT 256 10^3/uL (150-400)
[2018-06-01] MEDS: VANCOMYCIN HCL/NORMAL SALINE 250 ML IV SCH ×2 (05:38→17:36)
[2018-06-01] MEDS: HYDROCODONE/APAP 5/325 TAB PO PRN (05:47)
[2018-06-01] MEDS: INSULIN LISPRO 100 UNIT/ML SC SCH ×3 (08:04→18:50)
[2018-06-01] MEDS: HYDROCHLOROTHIAZIDE 12.5 MG CAP PO SCH (10:25)
[2018-06-01] MEDS: RIVAROXABAN 20 MG TAB PO SCH (10:26)
[2018-06-01] MEDS: oxyCODONE IR 5 MG TAB PO PRN ×4 (10:26→21:45)
[2018-06-01] MEDS: LOSARTAN POTASSIUM 50 MG TAB PO SCH (10:26)
[2018-06-01] MEDS: SERTRALINE HCL 100 MG TAB PO SCH (10:26)
--- NOTE | 2018-06-01 11:32 | PDMN ---
Medical Necessity Medical necessity: Pt meets IP criteria per MD and MCG M-160 (sepsis); est los > 2 mn for ongoing tx and management of sepsis with leukocytosis and tachycardia in the setting of cellulitis of pannus and UTI; requiring IVF, IV ABX, contact isolation precautions for MRSA, infectious disease consult, and wound care consult. Comorbid DM, HTN, FTT, and gait instability.
[2018-06-01] MEDS: FLUCONAZOLE 100 MG TAB PO SCH (13:25)
--- NOTE | 2018-06-01 14:03 | WOCRNPDOC ---
WOCRN Advanced Assessment Note - Skin Integrity Problem, Advanced Assess Pannus Excoriation Dressing Type: Interdry Dressing Description: Intact, Shadowed Integumentary Issue Intervention: Visualized Under Dressing Ryann Wound Tissue: Erythema, Raw, Swollen, Weeping, Painful/Tender Ryann Wound Swelling: Mild Wound Bed Color: Red Wound Bed Constitution: Red/[place] - Non Granular Tissue Site Odor: Slight, Musky Skin Integrity Problem Comment: Wound care consult for pannus and under breast intertrigenous dermatitis. Patient had home nursing care in [place], [place] before admission. Patient had been treated for same wound on previous admission. Education provided to SAMARA Shaikh and patient re: need to wash and dry thoroughly and to apply interdry sheets BID and PRN. Dr. Maddox and SAMARA Shaikh in room for care. Wound care will not follow.
[2018-06-01] MEDS: KETOCONAZOLE 2% 15 GM CREAM TP SCH (15:13)
--- NOTE | 2018-06-01 15:18 | ASMTCMCOM ---
CM Note CM Note Notes: Received call from [facility], pt is current with them. They do not feel [place] is appropriate [place], pt is not caring for self very well. PT eval pending, [facility] w/f. DC Plan: TBD Date Signed: 06/01/2018 03:17 PM Electronically Signed By:Dianna Garduno RN
[2018-06-01] MEDS ORDERED: LORazepam 0.5 MG TAB PO PRN (17:13)
--- NOTE | 2018-06-01 17:59 | HOSPPROG ---
Hospitalist Progress Note Assessment/Plan: The patient is a 72-year-old female with PMH obesity, diabetes, CVA who was admitted for cellulitis. This patient is new to me. Reviewed patient's chart/records for this visit. ASSESSMENT/PLAN: Cellulitis - RLE, pannus Hina Intertigo Sepsis on admission Leukocytosis, improved -ID recs appreciated - started po fluconazole. -IV vanco. -prn analgesics. -Check AM labs. DM 2 -Lantus, SSI, hyperglycemia protocol. HTN -Continue home meds H/o lacunar CVA - on Xarelto Gait instability Morbid obesity -PT/OT. Likely needs SNF placement. VTE prophylaxis: Xarelto Code Status: Full code Status: Inpatient for greater than 2 midnight stay. Disposition: Med surg ____ SUBJECTIVE: Today the patient complains of severe pain in her right lower leg and foot. OBJECTIVE: Physical Exam: General: The patient is a morbidly obese female who is alert and in no acute distress. HEENT: normocephalic, extraocular movements intact, conjunctivae clear. Mucous membranes moist. Neck: trachea midline, no visible masses. Abd: soft and nondistended. Musculoskeletal: Normal muscle tone/bulk. Neuro: cranial nerves II XII grossly intact. Intact gross motor and sensory function. Psych: Anxious mood and appropriate affect. Skin: No pallor. +erythema noted right lower extremity without clearly demarcated borders. Heme/lymph: No pitting peripheral edema at bilateral lower extremities. Labs/Imaging/Other Tests: Personally reviewed/interpreted. Hip XR - No acute osseous findings. Objective: Vital Signs Temp Pulse Resp BP Pulse Ox 36.8 C 79 18 104/61 91 L 06/01/18 15:39 06/01/18 15:39 06/01/18 15:39 06/01/18 15:39 06/01/18 15:39 Laboratory Results 06/01/18 04:43 06/01/18 04:43 05/31/18 06/01/18 06/02/18 05:59 05:59 05:59 Intake Total 2275 301 Output Total 800 Balance 1475 301 PT 17.3 SEC (12.0-15.0) H 05/31/18 15:10 INR 1.40 (0.83-1.16) H 05/31/18 15:10 - Time Spent With Patient Time Spent with Patient: greater than 35 minutes Time Spent with Patient: Greater than 35 minutes spent on this patients care, greater than 50% of time spent counseling, educating, and coordinating care regarding the above mentioned plan. ICD10 Worksheet Patient Problems: Problems Problem Status Onset Cellulitis Acute Urinary tract infection Acute Contusion of right hip Acute Dehydration Acute Frequent falls Acute
--- NOTE | 2018-06-01 18:26 | GCON ---
INFECTIOUS DISEASE CONSULTATION DATE OF CONSULTATION: 06/01/2018 REFERRING PHYSICIAN: Lan Gerber MD REASON FOR CONSULTATION: Panniculitis. HISTORY OF PRESENT ILLNESS: Patient is a 72-year-old female with a past medical history of recurrent intertrigo, obesity, and diabetes mellitus, who I am asked to see in consultation for panniculitis a nd severe intertrigo. Patient describes typically taking Septra twice daily with use of mupirocin to control bacterial superinfection of her skin. She states she discontinued this approximately 2 week s ago when she ran out of her medications. She notes that she has had significant development of fam thema under both breasts, along the abdominal wall and suprapubic region, and in the inguinal folds. She does note that she has had fever with shaking chills over the last week. The affected areas are significantly painful. They have been weeping and malodorous. Based on these findings, she was see n in the emergency department and noted to have a white blood cell count of 17,000 with left shift. She was started empirically on vancomycin and Nizoral cream. She was noted to be in a poor hygienic state at the time of her arrival as well. Given the above findings, I am now asked to assist in her ongoing management. PAST MEDICAL HISTORY: Recurrent intertrigo, query prior hidradenitis as patient describes sweat glan d removal, stroke, type 2 diabetes, hypertension, hyperlipidemia, anxiety, morbid obesity. Patient b jana she has had MRSA in the past greater than 1 year ago. PAST SURGICAL HISTORY: Unremarkable. CURRENT MEDICATIONS: Vancomycin 1 g IV q.12 hours, Zoloft 100 mg p.o. daily, Xarelto 20 mg p.o. veronica y, Oxy IR as needed for pain, Cozaar 100 mg p.o. daily, Nizoral 2% cream applied daily, insulin slidi ng scale, Lantus 22 units subcu q.h.s., hydrochlorothiazide 12.5 mg p.o. daily, Neurontin 300 mg p.o. q.h.s. ALLERGIES: Penicillin causes a rash, levofloxacin also listed but unclear reaction. SOCIAL HISTORY: Patient does not note tobacco, alcohol or drug use. FAMILY HISTORY: Noncontributory. REVIEW OF SYSTEMS: Outside that noted in the HPI, the remainder of a 10-system review is unremarkabl e. PHYSICAL EXAMINATION: VITAL SIGNS: Temperature maximum 38.3, temperature current 36.8, heart rate 7 9, respiratory rate 18, blood pressure 104/61. GENERAL: Patient is morbidly obese in no acute distr ess. She appears nontoxic. HEENT: There is no scleral icterus, conjunctival injection, or conjunct ival petechiae. Oropharynx shows moist mucous membranes with dentition in poor repair. There is no nasal discharge or sinus tenderness. NECK: Supple without palpable lymphadenopathy or thyromegaly. CHEST: Clear to auscultation bilaterally without adventitious sounds. The respiratory effort is no rmal. CARDIOVASCULAR: Regular rate and rhythm without murmurs, gallops, or rubs. ABDOMEN: Obese, nontender, nondistended. Assessment of organomegaly is significantly limited by body habitus. MUSCU LOSKELETAL: There is 1+ lower extremity edema bilaterally. SKIN: There is erythema with mild macer ation and some satellite erythematous lesions underlying both breasts; there is erythema with macerat ion and satellite lesions in both inguinal regions; there is erythema with mild induration and tender ness over the suprapubic region and abdominal wall. NEUROLOGIC: Patient is alert and interacts appr opriately with the examiner. Cranial nerves 2-12 are grossly intact. Sensation is grossly intact. Muscle tone and bulk are normal. LYMPHATICS: No supraclavicular or cervical nodes; inguinal adenopa thy cannot be assessed due to patient's tenderness in her inguinal folds. LABORATORY DATA: White blood cell count 11.1, hematocrit 34.0, platelets 256, neutrophils 68%, lymph ocytes 23%, serum creatinine 0.5, INR 1.4, venous lactate 1.8. Urinalysis shows 2+ blood, 1+ protein , 5-10 red blood cells and 25-50 white blood cells. Blood cultures x2 are pending. Urine culture is pending. IMPRESSION: 1. Fever and leukocytosis: Most likely, this is associated with skin and soft tissue infection repr esented by panniculitis although induration is relatively limited. It is possible the patient will h ave concomitant bacteremia given all of her skin breakdown with organisms such as Staphylococcus torsten us, beta-hemolytic streptococci, or less likely gram-negative rods. Will continue empiric vancomycin pending additional blood culture data and course of clinical findings. 2. Severe intertrigo: Patient with severe intertrigo compatible with Hina. Will begin fluconazo le 400 mg orally daily as I think systemic therapy will be most effective. RECOMMENDATIONS: 1. Agree with vancomycin 1 g IV q.12 hours. 2. Begin fluconazole 400 mg orally daily. 3. InterDry sheets to intertriginous areas. 4. Continue Nizoral cream and regular cleaning of intertriginous folds. 5. Follow clinical response to above measures as well as culture data as available over time. Thank you for this consultation. We will continue to follow the patient with you. /[id number]/MODL
[2018-06-01] MEDS: GABAPENTIN 300 MG CAP PO SCH (20:15)
[2018-06-01] MEDS: INSULIN GLARGINE 100 UNITS/ML UNIT SC SCH (21:47)
[2018-06-02 05:30] LABS: PLATELET COUNT 261 10^3/uL (150-400)
[2018-06-02] MEDS: VANCOMYCIN HCL/NORMAL SALINE 250 ML IV SCH (05:57)
[2018-06-02] MEDS: HYDROCODONE/APAP 5/325 TAB PO PRN ×2 (06:03→15:59)
[2018-06-02] MEDS: RIVAROXABAN 20 MG TAB PO SCH (10:18)
[2018-06-02] MEDS: oxyCODONE IR 5 MG TAB PO PRN ×3 (10:20→19:40)
[2018-06-02] MEDS: SERTRALINE HCL 100 MG TAB PO SCH (10:20)
[2018-06-02] MEDS: INSULIN LISPRO 100 UNIT/ML SC SCH ×2 (12:36→19:36)
[2018-06-02] MEDS: LOSARTAN POTASSIUM 50 MG TAB PO SCH (12:37)
[2018-06-02] MEDS: HYDROCHLOROTHIAZIDE 12.5 MG CAP PO SCH (12:37)
[2018-06-02] MEDS ORDERED: traMADol 50 MG TAB PO PRN (13:01)
--- NOTE | 2018-06-02 13:04 | HOSPPROG ---
Hospitalist Progress Note Assessment/Plan: The patient is a 72-year-old female with PMH obesity, diabetes, CVA who was admitted for cellulitis. ASSESSMENT/PLAN: Cellulitis - RLE, pannus Hina Intertigo Sepsis on admission Leukocytosis, improved Possible UTI -ID recs appreciated - started po fluconazole. -IV vanc. Discussed w/ ID -- can change to po Keflex after a few days on IV Abx in preparation for DC. -prn analgesics. -Check AM labs. -Remove Calle in AM to avoid CAUTI. Discussed w/ pt and RN who agree w/ plan. Pt may use bedpan or bedside commode if needed. -UA weakly positive. +epithelial cells indicate contaminant. Recheck UA, if ( +) for infection --need to add coverage for E Coli which grew in Cx. DM 2 -Lantus, SSI, hyperglycemia protocol. HTN -Continue home meds H/o lacunar CVA - on Xarelto Gait instability Morbid obesity -PT/OT. -Pt refuses SNF placement. Fibromyalgia Chronic pain, on tramadol -resume tramadol. -Increase gabapentin to TID dosing. VTE prophylaxis: Xarelto Code Status: Full code Status: Inpatient for greater than 2 midnight stay. Disposition: Med surg ____ SUBJECTIVE: Today the patient complains of severe pain all over her body. She has not been out of bed. She turned away PT earlier and now feels guilty for being rude. She admits she has had dysuria on and off for the last month. OBJECTIVE: Physical Exam: General: The patient is a morbidly obese female who is alert and in no acute distress. HEENT: normocephalic, extraocular movements intact, conjunctivae clear. Mucous membranes moist. Neck: trachea midline, no visible masses. Abd: soft and nondistended. Musculoskeletal: Normal muscle tone/bulk. Neuro: cranial nerves II XII grossly intact. Intact gross motor and sensory function. Psych: Anxious mood and appropriate affect. Skin: No pallor. +erythema noted right lower extremity without clearly demarcated borders. +erythema noted w/ small eschars on pannus. +pink rash under breast folds. Heme/lymph: No pitting peripheral edema at bilateral lower extremities. Labs/Imaging/Other Tests: Personally reviewed/interpreted. Hip XR - No acute osseous findings. Objective: Vital Signs Temp Pulse Resp BP Pulse Ox 37.3 C 71 19 93/53 L 95 06/02/18 11:40 06/02/18 11:40 06/02/18 11:40 06/02/18 12:37 06/02/18 11:40 Laboratory Results 06/02/18 05:04 06/02/18 05:04 06/01/18 06/02/18 06/03/18 05:59 05:59 05:59 Intake Total 2275 586 Output Total 800 850 Balance 1475 -264 PT 17.3 SEC (12.0-15.0) H 05/31/18 15:10 INR 1.40 (0.83-1.16) H 05/31/18 15:10 - Time Spent With Patient Time Spent with Patient: greater than 35 minutes Time Spent with Patient: Greater than 35 minutes spent on this patients care, greater than 50% of time spent counseling, educating, and coordinating care regarding the above mentioned plan. ICD10 Worksheet Patient Problems: Problems Problem Status Onset Cellulitis Acute Urinary tract infection Acute Contusion of right hip Acute Dehydration Acute Frequent falls Acute
--- NOTE | 2018-06-02 15:56 | PCMIDPN ---
Assessment/Plan: Assessment: Fever and leukocytosis felt to be secondary to panniculitis with recurrent intertrigo. White blood cell count is significantly improved. Patient is no longer febrile. However she still feels mildly ill and fatigued. She is not willing to go to a senior care facility and wishes to had back to her [place] home upon discharge. Currently plan to continue both the vancomycin and fluconazole. May empirically switch to oral Keflex and doxycycline with some oral fluconazole follow-up upon discharge. Plan: 1. Continue IV vancomycin and fluconazole. 2. Follow her clinical course in appearance. 3. Encourage ambulation. Subjective: Patient is resting in her hospital bed. She notes that she is "not screaming in pain anymore"which is good. She continues to have some lower extremity pain and is feeling generally more poorly than baseline. Objective: Vancomycin # 1 Fluconazole # 2 Vital Signs Temp Pulse Resp BP Pulse Ox 37.3 C 71 19 93/53 L 95 06/02/18 11:40 06/02/18 11:40 06/02/18 11:40 06/02/18 12:37 06/02/18 11:40 Laboratory Results 06/02/18 05:04 06/02/18 05:04 06/01/18 06/02/18 06/03/18 05:59 05:59 05:59 Intake Total 2275 586 Output Total 800 850 Balance 1475 -264 - Physical Exam General Appearance: WD/WN, alert, no apparent distress, obese, non-toxic Respiratory: lungs clear, normal breath sounds, No respiratory distress Cardiac/Chest: regular rate, rhythm, No tachycardia Neuro/Psych: alert, normal mood/affect, oriented x 3 ICD10 Worksheet Patient Problems: Problems Problem Status Onset Cellulitis Acute Urinary tract infection Acute Contusion of right hip Acute Dehydration Acute Frequent falls Acute
[2018-06-02] MEDS: GABAPENTIN 300 MG CAP PO SCH ×2 (15:59→20:40)
[2018-06-02] MEDS: FLUCONAZOLE 100 MG TAB PO SCH (16:00)
[2018-06-02] MEDS: KETOCONAZOLE 2% 15 GM CREAM TP SCH (16:00)
[2018-06-02] MEDS ORDERED: VANCOMYCIN 1.25 GM in NS 250 ML IV SCH (17:00)
[2018-06-02] MEDS: LORazepam 0.5 MG TAB PO PRN (19:41)
[2018-06-02] MEDS: INSULIN GLARGINE 100 UNITS/ML UNIT SC SCH (21:13)
[2018-06-03] MEDS: oxyCODONE IR 5 MG TAB PO PRN ×3 (05:36→19:51)
[2018-06-03] MEDS: VANCOMYCIN 1.25 GM in NS 250 ML IV SCH ×2 (07:15→18:31)
[2018-06-03] MEDS: INSULIN LISPRO 100 UNIT/ML SC SCH ×3 (08:15→18:26)
[2018-06-03] MEDS: LOSARTAN POTASSIUM 50 MG TAB PO SCH (08:45)
[2018-06-03] MEDS: GABAPENTIN 300 MG CAP PO SCH ×3 (08:45→21:33)
[2018-06-03] MEDS: RIVAROXABAN 20 MG TAB PO SCH (08:45)
[2018-06-03] MEDS: HYDROCHLOROTHIAZIDE 12.5 MG CAP PO SCH (08:45)
[2018-06-03] MEDS: SERTRALINE HCL 100 MG TAB PO SCH (08:46)
[2018-06-03] MEDS: FLUCONAZOLE 100 MG TAB PO SCH (08:46)
[2018-06-03] MEDS: KETOCONAZOLE 2% 15 GM CREAM TP SCH (08:48)
--- NOTE | 2018-06-03 12:49 | HOSPPROG ---
Hospitalist Progress Note Assessment/Plan: The patient is a 72-year-old female with PMH obesity, diabetes, CVA who was admitted for cellulitis. # panniculitis, discussed with Dr. Banks. Patient currently on IV antibiotics with significant improvement in her cellulitis. Still has some erythema and tenderness primarily on the right side of her pannus. She is fairly immobile and not ready for discharge and refuses skilled placement. * Continue IV antibiotics while in the hospital transition to p.o. Keflex at discharge * PT and OT to help patient get more mobile and preparation for discharge home since she is refusing rehab * Skin care # cellulitis, minimal erythema but tenderness on the skin unclear if this is true cellulitis # pyuria, doubt urinary tract infection given minimal white blood cells. # type 2 diabetes currently on Lantus and sliding scale, blood sugars under good control # hypertension, stable # history of lacunar infarct currently on Xarelto # morbid obesity, PT OT # fibromyalgia, plan discharge on her normal dose of tramadol without any extra medication Subjective: Patient new to me and chart reviewed continues to complain of pain under her right pannus primarily. Refusing any type of post hospital rehab will stay here"as long as it takes" Objective: Vital Signs Temp Pulse Resp BP Pulse Ox 37.3 C 63 16 109/55 L 95 06/03/18 11:09 06/03/18 11:09 06/03/18 11:09 06/03/18 11:09 06/03/18 11:09 Laboratory Results 06/02/18 05:04 06/02/18 05:04 06/02/18 06/03/18 06/04/18 05:59 05:59 05:59 Intake Total 586 200 Output Total 850 700 500 Balance -264 -500 -500 PT 17.3 SEC (12.0-15.0) H 05/31/18 15:10 INR 1.40 (0.83-1.16) H 05/31/18 15:10 - Physical Exam Constitutional: obese Eyes: PERRL Cardiovascular: regular rate and rhythym Respiratory: no respiratory distress, clear to auscultation Gastrointestinal: normoactive bowel sounds Genitourinary: no bladder fullness Skin: erythema, induration, other (Large pannus with increased erythema tenderness and some scaling primarily on the right side improving on the left side and center.) Musculoskeletal: generalized weakness Neurologic: AAOx3 Psychiatric: interacting appropriately ICD10 Worksheet Patient Problems: Problems Problem Status Onset Frequent falls Acute Dehydration Acute Contusion of right hip Acute Cellulitis Acute Urinary tract infection Acute
[2018-06-03] MEDS: LORazepam 0.5 MG TAB PO PRN (21:33)
[2018-06-03] MEDS: INSULIN GLARGINE 100 UNITS/ML UNIT SC SCH (21:33)
[2018-06-04 06:22] LABS: PLATELET COUNT 288 10^3/uL (150-400)
[2018-06-04] MEDS: VANCOMYCIN 1.25 GM in NS 250 ML IV SCH ×2 (07:21→18:31)
[2018-06-04] MEDS: INSULIN LISPRO 100 UNIT/ML SC SCH ×3 (08:32→18:29)
[2018-06-04] MEDS: FLUCONAZOLE 100 MG TAB PO SCH (09:14)
[2018-06-04] MEDS: LOSARTAN POTASSIUM 50 MG TAB PO SCH (09:14)
[2018-06-04] MEDS: GABAPENTIN 300 MG CAP PO SCH ×3 (09:14→20:52)
[2018-06-04] MEDS: SERTRALINE HCL 100 MG TAB PO SCH (09:14)
[2018-06-04] MEDS: HYDROCHLOROTHIAZIDE 12.5 MG CAP PO SCH (09:14)
[2018-06-04] MEDS: RIVAROXABAN 20 MG TAB PO SCH (09:14)
[2018-06-04] MEDS: KETOCONAZOLE 2% 15 GM CREAM TP SCH (09:21)
--- NOTE | 2018-06-04 14:18 | HOSPPROG ---
Hospitalist Progress Note Assessment/Plan: The patient is a 72-year-old female with PMH obesity, diabetes, CVA who was admitted for cellulitis. Today she complains of a numbness in her right hand although sensation is intact to soft touch. # panniculitis, discussed with Dr. Banks. Patient currently on IV antibiotics with significant improvement in her cellulitis. Still has some erythema and tenderness primarily on the right side of her pannus. She is fairly immobile and not ready for discharge and refuses skilled placement. * Continue IV antibiotics while in the hospital transition to p.o. Keflex at discharge * PT and OT to help patient get more mobile and preparation for discharge home CM continues to discuss possible rehab. * Skin care # question numbness weakness and right hand. Neurologic exam is unremarkable she does have weakness in both hands which appear equal she also has weakness in her right arm due to a rotator cuff injury that is chronic and does not appear to be a new finding. Patient reassured will watch this and will have occupational therapy work with her # cellulitis, minimal erythema but tenderness on the skin unclear if this is true cellulitis # pyuria, doubt urinary tract infection given minimal white blood cells. # type 2 diabetes currently on Lantus and sliding scale, blood sugars under good control # hypertension, stable # history of lacunar infarct currently on Xarelto # morbid obesity, PT OT # fibromyalgia, plan discharge on her normal dose of tramadol without any extra medication Patient currently a 2 person assist, she has morbid obesity. Her infection is improving however I am reluctant to send her home she lives up in the [facility] alone. Currently she is resistant to going to skilled rehab however is starting to discuss this is a possibility with case management. Subjective: Complains of numbness and weakness in her right hand. Pain in her legs which is chronic pain in her pannus Objective: Vital Signs Temp Pulse Resp BP Pulse Ox 37.1 C 70 16 82/58 L 96 06/04/18 11:40 06/04/18 11:40 06/04/18 08:36 06/04/18 11:40 06/04/18 11:40 Laboratory Results 06/04/18 06:10 06/02/18 05:04 06/03/18 06/04/18 06/05/18 05:59 05:59 05:59 Intake Total 200 100 250 Output Total 700 2400 100 Balance -500 -2300 150 PT 17.3 SEC (12.0-15.0) H 05/31/18 15:10 INR 1.40 (0.83-1.16) H 05/31/18 15:10 - Physical Exam Constitutional: chronically ill appearing, obese, uncomfortable Eyes: PERRL Ears, Nose, Mouth, Throat: dry mucous membranes Cardiovascular: regular rate and rhythym Respiratory: no respiratory distress, clear to auscultation Gastrointestinal: other (Large pannus with evidence of tinea and erythema under her pannus right greater than left tenderness to palpation) Genitourinary: No lopez in urethra Skin: normal color Musculoskeletal: generalized weakness Neurologic: AAOx3, sensation intact bilaterally, weakness (Diffuse weakness both hands in beef grinder strength are equal), other (Weakness with lifting right arm that I suspect is from previous rotator cuff injury), No numbness Psychiatric: interacting appropriately, depressed ICD10 Worksheet Patient Problems: Problems Problem Status Onset Frequent falls Acute Dehydration Acute Contusion of right hip Acute Cellulitis Acute Urinary tract infection Acute
--- NOTE | 2018-06-04 15:26 | PCMIDPN ---
Assessment/Plan: Assessment: Fever and leukocytosis felt to be secondary to panniculitis with recurrent intertrigo. White blood cell count and symptoms are significantly improved. However she continues to feel mildly ill and fatigued. She is not willing to go to a long-term facility and wishes to had back to her [place] home upon discharge. Currently plan to continue both the vancomycin and fluconazole. May empirically switch to oral Keflex and doxycycline with some oral fluconazole follow-up upon discharge. Plan: 1. Continue IV vancomycin and fluconazole. 2. Follow her clinical course in appearance. 3. Encourage ambulation. 06/04/18 15:23 Subjective: Patient remains in much the same state that she was 2 days ago. She is not in pain as much as she was but it is still limiting in her ability to ambulate and take care of herself. She remains staunchly against a long-term facility. Objective: Vancomycin # 3 Fluconazole # 4 Vital Signs Temp Pulse Resp BP Pulse Ox 37.8 C 63 20 125/70 H 100 06/04/18 15:19 06/04/18 15:19 06/04/18 15:19 06/04/18 15:19 06/04/18 15:19 Laboratory Results 06/04/18 06:10 06/02/18 05:04 06/03/18 06/04/18 06/05/18 05:59 05:59 05:59 Intake Total 200 100 250 Output Total 700 2400 100 Balance -500 -2300 150 - Physical Exam General Appearance: WD/WN, alert, obese, non-toxic Respiratory: lungs clear, normal breath sounds, No respiratory distress Cardiac/Chest: regular rate, rhythm, No tachycardia Extremities: non-tender, No normal inspection Skin: normal color, warm/dry, rash Neuro/Psych: alert, normal mood/affect, oriented x 3 ICD10 Worksheet Patient Problems: Problems Problem Status Onset Cellulitis Acute Urinary tract infection Acute Contusion of right hip Acute Dehydration Acute Frequent falls Acute
[2018-06-04] MEDS: oxyCODONE IR 5 MG TAB PO PRN ×2 (17:11→20:54)
[2018-06-04] MEDS: LORazepam 0.5 MG TAB PO PRN (20:54)
[2018-06-04] MEDS: INSULIN GLARGINE 100 UNITS/ML UNIT SC SCH (21:29)
[2018-06-05] MEDS: VANCOMYCIN 1.25 GM in NS 250 ML IV SCH (06:43)
[2018-06-05] MEDS: INSULIN LISPRO 100 UNIT/ML SC SCH ×3 (09:09→18:58)
[2018-06-05] MEDS: SERTRALINE HCL 100 MG TAB PO SCH (09:40)
[2018-06-05] MEDS: RIVAROXABAN 20 MG TAB PO SCH (09:40)
[2018-06-05] MEDS: GABAPENTIN 300 MG CAP PO SCH ×3 (09:40→21:28)
[2018-06-05] MEDS: HYDROCHLOROTHIAZIDE 12.5 MG CAP PO SCH (09:40)
[2018-06-05] MEDS: LOSARTAN POTASSIUM 50 MG TAB PO SCH (09:40)
[2018-06-05] MEDS: FLUCONAZOLE 100 MG TAB PO SCH (09:41)
[2018-06-05] MEDS: KETOCONAZOLE 2% 15 GM CREAM TP SCH (09:41)
[2018-06-05] MEDS: oxyCODONE IR 5 MG TAB PO PRN ×2 (09:51→21:29)
--- NOTE | 2018-06-05 11:32 | ASMTCMCOM ---
CM Note CM Note Notes: [facility] states they need more information on patient to determine admission. Left a message for Thea who plans to visit with the patient today. Updates Allscripted to Claudia. Awaiting Thea's return call. CM will follow. Date Signed: 06/05/2018 11:31 AM Electronically Signed By:Estelle Jackson LCSW
--- NOTE | 2018-06-05 15:55 | ASMTCMCOM ---
IRWIN Note CM Note Notes: Mary Anne from [facility] visited with the patient and also spoke with her insurance companies. Patient has 7 more days before her Medicare rehab days will replenish. She currently has used all her Medicare rehab days. Her secondary insurance does not cover rehab services. Currently, the patient is not ready for discharge, so we will continue to monitor her medical situation. Patient can either discharge directly to [facility] 7 days from now or if she is ready for discharge sooner, she can go home with home health support and in 7 days have her PCP admit her to SNF rehab with [facility]. She will be within her 30 day limit of hospitalization and will have had her 3 midnights. Once she is 30 days past her current hospitalization, she will no longer be eligible to admit from home. There are safety concerns for the patient with the second option in that [place] and home health will only visit a couple of times per week. [facility] has accepted the patient if we utilize one of these 2 options so they will get reimbursement. CM will follow. Date Signed: 06/05/2018 03:54 PM Electronically Signed By:Estelle Jackson LCSW
--- NOTE | 2018-06-05 17:23 | HOSPPROG ---
Hospitalist Progress Note Assessment/Plan: Subjective Follow-up on panniculitis. No acute events overnight. I did have discussion with Lina today about short-term rehab. I also talked with case management and sounds like she has exhausted her days of covered rehab currently. But will have additional rehab covered in the coming 1-2 weeks. Objective Vital signs as detailed below Exam General-awake alert conversant no acute distress, sitting in a chair at the bedside Heart-regular rate and rhythm no murmurs Lungs-Clear to auscultation with normal respiratory effort Abdomen-soft nontender nondistended normal bowel sounds -Calle catheter in place with clear yellow urine Extremities-no significant pitting edema or calf pain with palpation Skin-the skin under her pannus appears consistent with resolving erythema, mild sloughing of the skin noted. Labs as detailed below Assessment plan Panniculitis-appreciate Infectious disease's input on the case. Continue antibiotics per the recommendations. Right hand weakness-no complaints of today. Continue work with PT and OT. History of CVA-patient is currently on Xarelto for this indication. Hypertension-controlled. Continue current losartan and hydrochlorothiazide. Diabetes mellitus type 2-continue with current Lantus and sliding scale. DVT prophylaxis-patient anticoagulated. Disposition-patient is hopeful to return back to her home in [place] although at the current time I do not think she is mobile enough to safely transition to independent living and I would recommend short-term rehab prior to returning home. Objective: Vital Signs Temp Pulse Resp BP Pulse Ox 37.0 C 70 18 107/53 L 93 06/05/18 15:49 06/05/18 15:49 06/05/18 15:49 06/05/18 15:49 06/05/18 15:49 Laboratory Results 06/04/18 06:10 06/02/18 05:04 06/04/18 06/05/18 06/06/18 05:59 05:59 05:59 Intake Total 100 1800 Output Total 2400 3200 Balance -2300 -1400 PT 17.3 SEC (12.0-15.0) H 05/31/18 15:10 INR 1.40 (0.83-1.16) H 05/31/18 15:10 ICD10 Worksheet Patient Problems: Problems Problem Status Onset Cellulitis Acute Urinary tract infection Acute Contusion of right hip Acute Dehydration Acute Frequent falls Acute
--- NOTE | 2018-06-05 17:47 | PCMIDPN ---
Assessment/Plan: Assessment/Plan: * Panniculitis: Significant improvement with IV vancomycin and fluconazole. Will transition vancomycin to oral cephalexin and doxycycline to complete another 7 days of therapy. * Intertrigo: Significant improvement versus initial exam. Continue oral fluconazole. Likely to require at least 2 weeks of anti fungal therapy. Continue inter Dry sheets. 06/05/18 17:45 Subjective: Patient with less pain in inguinal folds. Up to chair this afternoon. Objective: Vital Signs Temp Pulse Resp BP Pulse Ox 37.0 C 70 18 107/53 L 93 06/05/18 15:49 06/05/18 15:49 06/05/18 15:49 06/05/18 15:49 06/05/18 15:49 Laboratory Results 06/04/18 06:10 06/02/18 05:04 06/04/18 06/05/18 06/06/18 05:59 05:59 05:59 Intake Total 100 1800 Output Total 2400 3200 Balance -2300 -1400 Vancomycin # 4 Fluconazole # 5 - Physical Exam General Appearance: alert, no apparent distress, obese EENT: No scleral icterus Cardiac/Chest: regular rate, rhythm Abdomen: non-tender, No distended Skin: rash (Intertrigo significantly less prominent in inguinal region bilaterally; pannicular inflammation over suprapubic region resolved; intertrigo in breast markedly reduced) ICD10 Worksheet Patient Problems: Problems Problem Status Onset Cellulitis Acute Urinary tract infection Acute Contusion of right hip Acute Dehydration Acute Frequent falls Acute
[2018-06-05] MEDS: CEPHALEXIN 500 MG CAP PO SCH (18:58)
[2018-06-05] MEDS: DOXYCYCLINE HYCLATE 100 MG CAP/TAB PO SCH (21:28)
[2018-06-05] MEDS: LORazepam 0.5 MG TAB PO PRN (21:29)
[2018-06-05] MEDS: INSULIN GLARGINE 100 UNITS/ML UNIT SC SCH (21:30)
[2018-06-06] MEDS: CEPHALEXIN 500 MG CAP PO SCH ×4 (00:43→18:26)
[2018-06-06] MEDS: INSULIN LISPRO 100 UNIT/ML SC SCH ×3 (08:55→18:22)
[2018-06-06] MEDS: GABAPENTIN 300 MG CAP PO SCH ×3 (09:18→22:00)
[2018-06-06] MEDS: SERTRALINE HCL 100 MG TAB PO SCH (09:18)
[2018-06-06] MEDS: RIVAROXABAN 20 MG TAB PO SCH (09:18)
[2018-06-06] MEDS: FLUCONAZOLE 100 MG TAB PO SCH (09:18)
[2018-06-06] MEDS: DOXYCYCLINE HYCLATE 100 MG CAP/TAB PO SCH ×2 (09:19→22:00)
[2018-06-06] MEDS: KETOCONAZOLE 2% 15 GM CREAM TP SCH (09:22)
[2018-06-06] MEDS: LOSARTAN POTASSIUM 50 MG TAB PO SCH ×2 (09:25→13:02)
[2018-06-06] MEDS: HYDROCHLOROTHIAZIDE 12.5 MG CAP PO SCH ×2 (09:25→13:02)
--- NOTE | 2018-06-06 13:38 | HOSPPROG ---
Hospitalist Progress Note Assessment/Plan: The patient is a 72-year-old female with PMH obesity, diabetes, CVA who was admitted for cellulitis. Today she complains of a numbness in her right hand although sensation is intact to soft touch. # panniculitis,Patient currently on IV antibiotics with significant improvement in her cellulitis. Still has some erythema and tenderness primarily on the right side of her pannus. She is fairly immobile and not ready for discharge and refuses skilled placement. * Transition oral antibiotics and fluconazole * PT and OT to help patient get more mobile and preparation for discharge home CM continues to discuss possible rehab. * Skin care # question numbness weakness and right hand. Neurologic exam is unremarkable she does have weakness in both hands which appear equal she also has weakness in her right arm due to a rotator cuff injury that is chronic and does not appear to be a new finding. I wonder she has some carpal tunnel syndrome. * Check vitamin B12 and TSH for cause of numbness * Discussed keeping her hand in a neutral position to see if this helps, could consider of wrist splint to keep her hand in a neutral position * No evidence of cervical radiculopathy, appears to be more peripheral neuropathy and will need follow-up as an outpatient. I do not think they can do nerve conduction tests here in the hospital # cellulitis, minimal erythema but tenderness on the skin unclear if this is true cellulitis # pyuria, doubt urinary tract infection given minimal white blood cells. # type 2 diabetes currently on Lantus and sliding scale, blood sugars under good control # hypertension, stable # history of lacunar infarct currently on Xarelto # morbid obesity, PT OT # fibromyalgia, plan discharge on her normal dose of tramadol without any extra medication Patient currently a 2 person assist, she has morbid obesity. Her infection is improving however I am reluctant to send her home she lives [facility] alone. Currently she is resistant to going to skilled rehab however is starting to discuss this is a possibility with case management. Subjective: Patient continues to complain on numbness of her right hand primarily the 1st 3 fingers a little bit on the ring finger. No objective numbness. Objective: Vital Signs Temp Pulse Resp BP Pulse Ox 36.8 C 53 L 18 110/64 97 06/06/18 12:00 06/06/18 12:06/06/18 12:18 12:00 06/06/18 12:00 Laboratory Results 06/04/18 06:10 06/06/18 04:48 06/05/18 06/06/18 06/07/18 05:59 05:59 05:59 Intake Total 1800 Output Total 3200 200 Balance -1400 -200 PT 17.3 SEC (12.0-15.0) H 05/31/18 15:10 INR 1.40 (0.83-1.16) H 05/31/18 15:10 - Physical Exam Constitutional: obese, uncomfortable Eyes: PERRL Ears, Nose, Mouth, Throat: moist mucous membranes, hearing normal Cardiovascular: regular rate and rhythym Respiratory: no respiratory distress, clear to auscultation Gastrointestinal: tenderness (At side of the pannus) Skin: warm, erythema, induration (Pannus right greater than left) Musculoskeletal: generalized weakness Neurologic: AAOx3, 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
--- NOTE | 2018-06-06 16:17 | ASMTCMCOM ---
CM Note CM Note Notes: Patient had a palliative care consult ordered and got a pain management consult today with [facility] Maurizio. A referral was sent per Mel's request. CM will follow. Date Signed: 06/06/2018 04:17 PM Electronically Signed By:Estelle Jackson LCSW
[2018-06-06] MEDS: CYANO/VITAMIN B12 1000 MCG TAB PO SCH (16:48)
[2018-06-06] MEDS: INSULIN GLARGINE 100 UNITS/ML UNIT SC SCH (22:00)
[2018-06-07] MEDS: CEPHALEXIN 500 MG CAP PO SCH ×5 (00:21→23:05)
[2018-06-07] MEDS: INSULIN LISPRO 100 UNIT/ML SC SCH ×3 (09:17→17:40)
[2018-06-07] MEDS: LOSARTAN POTASSIUM 50 MG TAB PO SCH (10:44)
[2018-06-07] MEDS: HYDROCHLOROTHIAZIDE 12.5 MG CAP PO SCH (10:45)
[2018-06-07] MEDS: GABAPENTIN 300 MG CAP PO SCH ×3 (10:45→22:00)
[2018-06-07] MEDS: CYANO/VITAMIN B12 1000 MCG TAB PO SCH (10:45)
[2018-06-07] MEDS: SERTRALINE HCL 100 MG TAB PO SCH (10:45)
[2018-06-07] MEDS: FLUCONAZOLE 100 MG TAB PO SCH (10:45)
[2018-06-07] MEDS: DOXYCYCLINE HYCLATE 100 MG CAP/TAB PO SCH ×2 (10:45→22:00)
[2018-06-07] MEDS: RIVAROXABAN 20 MG TAB PO SCH (10:45)
[2018-06-07] MEDS: KETOCONAZOLE 2% 15 GM CREAM TP SCH (10:46)
--- NOTE | 2018-06-07 12:54 | HOSPPROG ---
Hospitalist Progress Note Assessment/Plan: #Panniculitis: Kelfex/Doxy through 06/12 -Fluconazole 400mg through 06/15, then 200mg daily x 2 weeks. Follow LFTs #Pyuria: E coli on culture, but no symptoms #Controlled DM 2: Lantus, SSI #HTN: home meds #h/p lacunar infarct: Xarelto #Fibromyalgia: Tramadol, uptitrate Gabapentin -Palliative care consulted for spiritual/social support; no outpatient care indicated #Morbid obesity #Diet: diabetic #DVT ppx: Lovenox #Disp: inpatient admission for PT, pain control Subjective: "pain is burning under pannus" Objective: Vital Signs Temp Pulse Resp BP Pulse Ox 37.0 C 56 L 16 104/62 95 06/07/18 12:04 06/07/18 12:04 06/07/18 12:04 06/07/18 12:04 06/07/18 12:04 Laboratory Results 06/04/18 06:10 06/06/18 04:48 06/06/18 06/07/18 06/08/18 05:59 05:59 05:59 Intake Total 450 Output Total 200 1525 Balance -200 -1525 450 PT 17.3 SEC (12.0-15.0) H 05/31/18 15:10 INR 1.40 (0.83-1.16) H 05/31/18 15:10 - Time Spent With Patient Time Spent with Patient: greater than 35 minutes Time Spent with Patient: Greater than 35 minutes spent on this patients care, greater than 50% of time spent counseling, educating, and coordinating care regarding the above mentioned plan. - Physical Exam Constitutional: obese Eyes: PERRL Ears, Nose, Mouth, Throat: moist mucous membranes Cardiovascular: regular rate and rhythym Respiratory: no respiratory distress Gastrointestinal: normoactive bowel sounds Genitourinary: No lopez in urethra Skin: warm, other (abd wall erythema. No panniculitis. Redness lateral groin regions) Musculoskeletal: full muscle strength Neurologic: AAOx3, CN II-XII Intact Psychiatric: flat affect ICD10 Worksheet Patient Problems: Problems Problem Status Onset Cellulitis Acute Urinary tract infection Acute Contusion of right hip Acute Dehydration Acute Frequent falls Acute
--- NOTE | 2018-06-07 14:52 | PCMIDPN ---
Assessment/Plan: Assessment/Plan: * Panniculitis: Suspect residual findings mainly related to Hina. Will complete 7 days total of oral cephalexin and doxycycline which she is tolerating well to date. * Intertrigo: Continued improvement versus time of presentation. Anticipate likely will require up to 4 weeks of fluconazole to see resolution (potentially longer). Recommend 400 mg orally x2 weeks, then transition to 200 mg orally once daily x2 weeks. Will check liver function tests while on fluconazole. Will follow peripherally at this point. Please notify for any active infectious disease issues. 06/07/18 14:48 Subjective: Patient continues to feel clinically improved. Rash most bothersome on right lower abdominal wall/inguinal fold. Objective: Vital Signs Temp Pulse Resp BP Pulse Ox 37.0 C 56 L 16 104/62 95 06/07/18 12:04 06/07/18 12:04 06/07/18 12:04 06/07/18 12:04 06/07/18 12:04 Laboratory Results 06/04/18 06:10 06/06/18 04:48 06/06/18 06/07/18 06/08/18 05:59 05:59 05:59 Intake Total 1400 Output Total 200 1525 Balance -200 -1525 1400 Fluconazole # 7 Cephalexin # 2 Doxycycline # 2 - Physical Exam General Appearance: alert, no apparent distress, obese EENT: No scleral icterus Cardiac/Chest: regular rate, rhythm Abdomen: non-tender, No distended Skin: other (Intertrigo under breast significantly decreased with residual mild maceration present; intertrigo in groin significantly decreased with most prominent areas and residual maceration laterally; no residual panniculitis present; abdominal wall with residual areas of erythema which are most consistent with Hina) ICD10 Worksheet Patient Problems: Problems Problem Status Onset Cellulitis Acute Urinary tract infection Acute Contusion of right hip Acute Dehydration Acute Frequent falls Acute
--- NOTE | 2018-06-07 15:43 | PDPCPN ---
Palliative Care Progress Note Assessment/Plan: Assessment: [facility] [address] [place] [id number] (O) [phone]) PALLIATIVE CARE NOTE NAME:Lina Ordonez : [id number] VISIT TYPE: Initial LOCATION: [facility] LEVEL OF CARE: Transitional DIAGNOSES: 1. Panniculitis 2. Widespread fungal skin infection CC: Initial palliative care visit HPI: Ms. Ordonez is a 72-year-old female who has been living alone and independently in her home outside of [place]. She began to experience significant pain in her lower extremities as well as her abdominal region. Her neighbor eventually called 911 for transport to the hospital. She was found to have panniculitis and is currently receiving IV antibiotics and antifungals. 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 Has been living alone independently in her home outside of [place] to [place] PATIENT GOALS OF CARE: 1. Return home 2. Remain as independent as possible ACTIVE SYMPTOMS/ASSESSMENTS/RECOMMENDATIONS: 1. Panniculitis M79.3: Currently being treated with IV antibiotics and IV antifungals. Pain is slowly improving. 2. Pain G 89.4: Currently receiving IV opioids. MODIFIED [place] SYMPTOM ASSESSMENT SCALE: 0-none; 1-3 mild; 4-6 moderate; 7-10 severe Unable to Respond: No [ ] Delirium: 0-none Depression: 0-none Anxiety: 0none Tiredness (fatigue): 3 Drowsiness (sleepiness): 0-none Pain: 4 Nausea: 0-none Anorexia: 0-none Shortness of Breath: 0-none Secretions: 0-none Constipation: 0-none Symptom and side effect management: (acceptable to patient and family) RISK FACTORS FOR RE-HOSPITALIZATION: o LIVES ALONE o COMPROMISED FINANCIAL STATUS o INADEQUATE SUPPORT SYSTEM o INADEQUATE TRANSPORTATION o DISEASE EDUCATION DEFICIT OBJECTIVE FINDINGS Palliative Performance Score: 70 FAST: Not applicable NYHA: n/a Vital Signs: Wt: MAC: Neuro: A&O to person, place, time and event; HEENT: Normocephalic; atraumatic RESP: Regular, deep, symmetrical. No cough or wheezing CV: no LE edema GI: soft, round : no dysuria or hematuria MSK: Well nourished. Ambulatory SKIN: intact. Intertriginous areas of erythema LAB Data: N/A Disposition: example- living safely and comfortably at home ADVANCE CARE PLANNING DISCUSSION PLAN: Discussed with the inpatient palliative team that she will not be appropriate for outpatient community palliative care. 1. No community palliative care follow-up Thank you for the opportunity to participate in the care of this patient. TIME SPENT: [id number] 50 min >50% of the time spent counseling, educating and coordinating the above topics. Maurizio Sacnhez Plan: 06/07/18 15:43 Objective: Vital Signs Temp Pulse Resp BP Pulse Ox 36.8 C 57 L 16 103/56 L 95 06/07/18 15:36 06/07/18 15:36 06/07/18 15:36 06/07/18 15:36 06/07/18 15:36 Laboratory Results 06/04/18 06:10 06/06/18 04:48 06/06/18 06/07/18 06/08/18 05:59 05:59 05:59 Intake Total 1400 Output Total 200 1525 Balance -200 -1525 1400 PT 17.3 SEC (12.0-15.0) H 05/31/18 15:10 INR 1.40 (0.83-1.16) H 05/31/18 15:10 ICD10 Worksheet Patient Problems: Problems Problem Status Onset Cellulitis Acute Urinary tract infection Acute Contusion of right hip Acute Dehydration Acute Frequent falls Acute
[2018-06-07] MEDS: HYDROCODONE/APAP 5/325 TAB PO PRN (17:35)
[2018-06-07] MEDS: INSULIN GLARGINE 100 UNITS/ML UNIT SC SCH (22:01)
[2018-06-08] MEDS: CEPHALEXIN 500 MG CAP PO SCH ×4 (05:10→23:06)
[2018-06-08] MEDS: INSULIN LISPRO 100 UNIT/ML SC SCH ×3 (08:33→17:34)
[2018-06-08] MEDS: DOXYCYCLINE HYCLATE 100 MG CAP/TAB PO SCH ×2 (09:26→20:46)
[2018-06-08] MEDS: CYANO/VITAMIN B12 1000 MCG TAB PO SCH (09:26)
[2018-06-08] MEDS: LOSARTAN POTASSIUM 50 MG TAB PO SCH (09:26)
[2018-06-08] MEDS: GABAPENTIN 300 MG CAP PO SCH ×3 (09:27→20:47)
[2018-06-08] MEDS: SERTRALINE HCL 100 MG TAB PO SCH (09:27)
[2018-06-08] MEDS: RIVAROXABAN 20 MG TAB PO SCH (09:27)
[2018-06-08] MEDS: HYDROCHLOROTHIAZIDE 12.5 MG CAP PO SCH (09:27)
[2018-06-08] MEDS: FLUCONAZOLE 100 MG TAB PO SCH (09:27)
[2018-06-08] MEDS: HYDROCODONE/APAP 5/325 TAB PO PRN ×2 (09:35→20:47)
[2018-06-08] MEDS: KETOCONAZOLE 2% 15 GM CREAM TP SCH (09:35)
--- NOTE | 2018-06-08 11:53 | HOSPPROG ---
Hospitalist Progress Note Assessment/Plan: #Panniculitis: Kelfex/Doxy through 06/12 -Fluconazole 400mg through 06/15, then 200mg daily x 2 weeks. Follow LFTs #Pyuria: E coli on culture, but no symptoms #Controlled DM 2: Lantus, SSI #HTN: home meds #h/p lacunar infarct: Xarelto #Fibromyalgia: Tramadol, uptitrate Gabapentin -Palliative care consulted for spiritual/social support; no outpatient care indicated #Deconditioning: PT/OT #Morbid obesity #Diet: diabetic #DVT ppx: Xarelto #Disp: inpatient admission for PT, pain control. Awaiting SNF placement. Not able to care for self at harm, thus risk for subsequent harm Subjective: agreeable to SNF Objective: Vital Signs Temp Pulse Resp BP Pulse Ox 36.9 C 51 L 16 121/70 H 93 06/08/18 07:50 06/08/18 07:50 06/08/18 07:50 06/08/18 09:27 06/08/18 07:50 Laboratory Results 06/04/18 06:10 06/07/18 15:41 06/07/18 06/08/18 06/09/18 05:59 05:59 05:59 Intake Total 1750 850 Output Total 1525 550 Balance -1525 1200 850 PT 17.3 SEC (12.0-15.0) H 05/31/18 15:10 INR 1.40 (0.83-1.16) H 05/31/18 15:10 - Time Spent With Patient Time Spent with Patient: greater than 35 minutes Time Spent with Patient: Greater than 35 minutes spent on this patients care, greater than 50% of time spent counseling, educating, and coordinating care regarding the above mentioned plan. - Physical Exam Constitutional: obese Eyes: PERRL Ears, Nose, Mouth, Throat: moist mucous membranes Cardiovascular: regular rate and rhythym Respiratory: no respiratory distress Gastrointestinal: normoactive bowel sounds Genitourinary: No lopez in urethra Musculoskeletal: other (mild erythema under breasts. Redness lateral groin folds) Neurologic: AAOx3, CN II-XII Intact Psychiatric: interacting appropriately ICD10 Worksheet Patient Problems: Problems Problem Status Onset Cellulitis Acute Urinary tract infection Acute Contusion of right hip Acute Dehydration Acute Frequent falls Acute
[2018-06-08] MEDS: INSULIN GLARGINE 100 UNITS/ML UNIT SC SCH (20:47)
[2018-06-09] MEDS: CEPHALEXIN 500 MG CAP PO SCH ×3 (05:56→17:01)
[2018-06-09] MEDS: INSULIN LISPRO 100 UNIT/ML SC SCH ×3 (08:05→17:59)
[2018-06-09] MEDS: LOSARTAN POTASSIUM 50 MG TAB PO SCH (08:06)
[2018-06-09] MEDS: DOXYCYCLINE HYCLATE 100 MG CAP/TAB PO SCH ×2 (08:07→20:33)
[2018-06-09] MEDS: SERTRALINE HCL 100 MG TAB PO SCH (08:08)
[2018-06-09] MEDS: CYANO/VITAMIN B12 1000 MCG TAB PO SCH (08:08)
[2018-06-09] MEDS: GABAPENTIN 300 MG CAP PO SCH ×3 (08:08→20:33)
[2018-06-09] MEDS: HYDROCHLOROTHIAZIDE 12.5 MG CAP PO SCH (08:09)
[2018-06-09] MEDS: RIVAROXABAN 20 MG TAB PO SCH (08:09)
[2018-06-09] MEDS: FLUCONAZOLE 100 MG TAB PO SCH (08:12)
[2018-06-09] MEDS: KETOCONAZOLE 2% 15 GM CREAM TP SCH (08:13)
--- NOTE | 2018-06-09 13:30 | HOSPPROG ---
Hospitalist Progress Note Assessment/Plan: #Panniculitis: Kelfex/Doxy through 06/12 -Fluconazole 400mg through 06/15, then 200mg daily x 2 weeks. Follow LFTs #Pyuria: E coli on culture, but no symptoms #Controlled DM 2: Lantus, SSI #HTN: home meds #h/p lacunar infarct: Xarelto #Fibromyalgia: Tramadol, tolerating increased Gabapentin 600 mg TID -Palliative care consulted for spiritual/social support; no outpatient care indicated #Right hand weakness: normal sensation. Check cervical spine xray #Deconditioning: PT/OT #Morbid obesity #Diet: diabetic #DVT ppx: Xarelto #Disp: inpatient admission for PT, pain control. Awaiting SNF placement. Not able to care for self at harm, thus risk for subsequent harm Subjective: does not feel tired with increased Gabapentin dose Objective: Vital Signs Temp Pulse Resp BP Pulse Ox 37.1 C 52 L 12 123/66 H 94 06/09/18 07:42 06/09/18 07:42 06/09/18 07:42 06/09/18 07:42 06/09/18 07:42 Laboratory Results 06/04/18 06:10 06/07/18 15:41 06/08/18 06/09/18 06/10/18 05:59 05:59 05:59 Intake Total 1750 1150 Output Total 550 1350 Balance 1200 -200 PT 17.3 SEC (12.0-15.0) H 05/31/18 15:10 INR 1.40 (0.83-1.16) H 05/31/18 15:10 - Time Spent With Patient Time Spent with Patient: greater than 35 minutes Time Spent with Patient: Greater than 35 minutes spent on this patients care, greater than 50% of time spent counseling, educating, and coordinating care regarding the above mentioned plan. - Physical Exam Constitutional: obese Eyes: PERRL Ears, Nose, Mouth, Throat: moist mucous membranes Cardiovascular: regular rate and rhythym Respiratory: no respiratory distress Gastrointestinal: normoactive bowel sounds Genitourinary: no bladder fullness Skin: other (mild erythema, groin, BL. Some under breasts. 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
[2018-06-09] MEDS: oxyCODONE IR 5 MG TAB PO PRN (17:13)
[2018-06-09] MEDS: INSULIN GLARGINE 100 UNITS/ML UNIT SC SCH (20:33)
[2018-06-10] MEDS: CEPHALEXIN 500 MG CAP PO SCH ×4 (00:04→17:26)
[2018-06-10] MEDS: FLUCONAZOLE 100 MG TAB PO SCH (07:57)
[2018-06-10] MEDS: SERTRALINE HCL 100 MG TAB PO SCH (07:58)
[2018-06-10] MEDS: DOXYCYCLINE HYCLATE 100 MG CAP/TAB PO SCH ×2 (07:59→21:13)
[2018-06-10] MEDS: HYDROCHLOROTHIAZIDE 12.5 MG CAP PO SCH (07:59)
[2018-06-10] MEDS: CYANO/VITAMIN B12 1000 MCG TAB PO SCH (07:59)
[2018-06-10] MEDS: GABAPENTIN 300 MG CAP PO SCH ×3 (08:00→21:13)
[2018-06-10] MEDS: LOSARTAN POTASSIUM 50 MG TAB PO SCH (08:00)
[2018-06-10] MEDS: RIVAROXABAN 20 MG TAB PO SCH (08:00)
[2018-06-10] MEDS: KETOCONAZOLE 2% 15 GM CREAM TP SCH (08:01)
[2018-06-10] MEDS: INSULIN LISPRO 100 UNIT/ML SC SCH ×3 (08:55→17:27)
--- NOTE | 2018-06-10 15:11 | ASMTCMCOM ---
CM Note CM Note Notes: Pt to discharge on Tuesday to [facility] in [place] with [facility]. Referrals have been sent and pt accepted. CM to follow. D/C Plan: ACCEL with [facility] Date Signed: 06/10/2018 03:10 PM Electronically Signed By:Ginny Chisholm
[2018-06-10] MEDS: oxyCODONE IR 5 MG TAB PO PRN (16:29)
--- NOTE | 2018-06-10 16:37 | HOSPPROG ---
Hospitalist Progress Note Assessment/Plan: #Panniculitis: Kelfex/Doxy through 06/12 -Fluconazole 400mg through 06/15, then 200mg daily x 2 weeks. Follow LFTs #Pyuria: E coli on culture, but no symptoms #Controlled DM 2: Lantus, SSI #HTN: home meds #h/p lacunar infarct: Xarelto #Fibromyalgia: Tramadol, tolerating increased Gabapentin 600 mg TID -Palliative care consulted for spiritual/social support; no outpatient care indicated #Right hand weakness: normal sensation. Cervical xray with degenerative disease. Can FU outpatient #Deconditioning: PT/OT #Morbid obesity #Diet: diabetic #DVT ppx: Xarelto #Disp: inpatient admission for PT, pain control. Awaiting SNF placement. Not able to care for self at harm, thus risk for subsequent harm Subjective: difficult to sleep last night Objective: Vital Signs Temp Pulse Resp BP Pulse Ox 37.1 C 55 L 16 92/50 L 93 06/10/18 12:00 06/10/18 12:00 06/09/18 22:47 06/10/18 12:00 06/10/18 12:00 Laboratory Results 06/04/18 06:10 06/07/18 15:41 06/09/18 06/10/18 06/11/18 05:59 05:59 05:59 Intake Total 1150 550 Output Total 1350 350 401 Balance -200 200 -401 PT 17.3 SEC (12.0-15.0) H 05/31/18 15:10 INR 1.40 (0.83-1.16) H 05/31/18 15:10 - Time Spent With Patient Time Spent with Patient: greater than 25 minutes Time Spent with Patient: Greater than 25 minutes spent on this patients care, greater than 50% of time spent counseling, educating, and coordinating care regarding the above mentioned plan. - Physical Exam Constitutional: no apparent distress, obese Eyes: PERRL Ears, Nose, Mouth, Throat: moist mucous membranes Cardiovascular: regular rate and rhythym Respiratory: no respiratory distress Gastrointestinal: normoactive bowel sounds Skin: erythema (lateral groin sites under pannus. No lesions, purulence), other Neurologic: AAOx3 Psychiatric: not encephalopathic ICD10 Worksheet Patient Problems: Problems Problem Status Onset Cellulitis Acute Urinary tract infection Acute Contusion of right hip Acute Dehydration Acute Frequent falls Acute
[2018-06-10] MEDS: INSULIN GLARGINE 100 UNITS/ML UNIT SC SCH (21:13)
[2018-06-11] MEDS: HYDROCODONE/APAP 5/325 TAB PO PRN ×2 (00:21→12:24)
[2018-06-11] MEDS: CEPHALEXIN 500 MG CAP PO SCH ×4 (00:23→18:17)
[2018-06-11] MEDS: RIVAROXABAN 20 MG TAB PO SCH (08:45)
[2018-06-11] MEDS: SERTRALINE HCL 100 MG TAB PO SCH (08:45)
[2018-06-11] MEDS: CYANO/VITAMIN B12 1000 MCG TAB PO SCH (08:45)
[2018-06-11] MEDS: LOSARTAN POTASSIUM 50 MG TAB PO SCH (08:45)
[2018-06-11] MEDS: DOXYCYCLINE HYCLATE 100 MG CAP/TAB PO SCH ×2 (08:45→21:41)
[2018-06-11] MEDS: HYDROCHLOROTHIAZIDE 12.5 MG CAP PO SCH (08:45)
[2018-06-11] MEDS: GABAPENTIN 300 MG CAP PO SCH ×3 (08:46→21:40)
[2018-06-11] MEDS: FLUCONAZOLE 100 MG TAB PO SCH (08:46)
[2018-06-11] MEDS: INSULIN LISPRO 100 UNIT/ML SC SCH ×3 (08:48→17:36)
[2018-06-11] MEDS: KETOCONAZOLE 2% 15 GM CREAM TP SCH (09:11)
--- NOTE | 2018-06-11 14:02 | HOSPPROG ---
Hospitalist Progress Note Assessment/Plan: #Panniculitis: Kelfex/Doxy through 06/12 -Fluconazole 400mg through 06/15, then 200mg daily x 2 weeks. Follow LFTs #Pyuria: E coli on culture, but no symptoms #Controlled DM 2: Lantus, SSI #HTN: home meds #h/p lacunar infarct: Xarelto #Fibromyalgia: Tramadol, tolerating increased Gabapentin 600 mg TID -Palliative care consulted for spiritual/social support; no outpatient care indicated #Right hand weakness: normal sensation. Cervical xray with degenerative disease. Can FU outpatient #Deconditioning: PT/OT #Morbid obesity #Diet: diabetic #DVT ppx: Xarelto #Disp: medical clear for DC once SNF accepts. Cont inpatient admission for PT, pain control. Subjective: feeling better overall Objective: Vital Signs Temp Pulse Resp BP Pulse Ox 36.8 C 49 L 16 114/60 91 L 06/11/18 08:00 06/11/18 08:00 06/11/18 08:00 06/11/18 08:00 06/11/18 08:00 Laboratory Results 06/04/18 06:10 06/07/18 15:41 06/10/18 06/11/18 06/12/18 05:59 05:59 05:59 Intake Total 550 450 Output Total 350 781 Balance 200 -331 PT 17.3 SEC (12.0-15.0) H 05/31/18 15:10 INR 1.40 (0.83-1.16) H 05/31/18 15:10 - Time Spent With Patient Time Spent with Patient: greater than 25 minutes Time Spent with Patient: Greater than 25 minutes spent on this patients care, greater than 50% of time spent counseling, educating, and coordinating care regarding the above mentioned plan. - Physical Exam Constitutional: no apparent distress, obese Ears, Nose, Mouth, Throat: moist mucous membranes Cardiovascular: regular rate and rhythym Respiratory: no respiratory distress Gastrointestinal: normoactive bowel sounds Skin: warm, other (erythema under pannus, more so lateral groin regions. erythema under breasts improved. No purulence) Musculoskeletal: full muscle strength Neurologic: CN II-XII Intact Psychiatric: interacting appropriately, flat affect ICD10 Worksheet Patient Problems: Problems Problem Status Onset Cellulitis Acute Urinary tract infection Acute Contusion of right hip Acute Dehydration Acute Frequent falls Acute
[2018-06-11] MEDS: INSULIN GLARGINE 100 UNITS/ML UNIT SC SCH (21:41)
[2018-06-12] MEDS: CEPHALEXIN 500 MG CAP PO SCH ×3 (00:58→13:04)
[2018-06-12] MEDS: LOSARTAN POTASSIUM 50 MG TAB PO SCH (08:28)
[2018-06-12] MEDS: SERTRALINE HCL 100 MG TAB PO SCH (08:28)
[2018-06-12] MEDS: HYDROCHLOROTHIAZIDE 12.5 MG CAP PO SCH (08:29)
[2018-06-12] MEDS: DOXYCYCLINE HYCLATE 100 MG CAP/TAB PO SCH (08:29)
[2018-06-12] MEDS: RIVAROXABAN 20 MG TAB PO SCH (08:29)
[2018-06-12] MEDS: GABAPENTIN 300 MG CAP PO SCH ×3 (08:29→21:35)
[2018-06-12] MEDS: CYANO/VITAMIN B12 1000 MCG TAB PO SCH (08:29)
[2018-06-12] MEDS: FLUCONAZOLE 100 MG TAB PO SCH (08:30)
[2018-06-12] MEDS: INSULIN LISPRO 100 UNIT/ML SC SCH ×3 (08:35→17:52)
[2018-06-12] MEDS: KETOCONAZOLE 2% 15 GM CREAM TP SCH (08:35)
--- NOTE | 2018-06-12 14:59 | ASMTCMCOM ---
CM Note CM Note Notes: Thea from [facility] informed CM that pts insurance will not approve from SNF stay. Thea reports that pt will need to be out of the hospital for 60 days for medicare to pay for snf again. CM checking w/ financial counseling on how many snf days she has left. Dr. Gusman put in a rehab consult. CM provided pt w/ [facility] to see how much private duty would cost. Pt reports that she is able to pay $20-$25 hourly. Multiple skilled HC agencies referral sent. [facility] is reviewing this case. [facility] is unable to take back because pt has a hx of being non-compliant. Pt will need assistance on getting home. CM asked pt to call medicare to see if stretcher transport is covered. CM to follow. Plan: TBD Date Signed: 06/12/2018 02:58 PM Electronically Signed By:BARBARA Landon
--- NOTE | 2018-06-12 17:29 | HOSPPROG ---
Hospitalist Progress Note Assessment/Plan: Panniculitis: completed keflex and doxy today. continue diflucan at 400 daily through 06/15 then 200qd for two weeks. Monitor liver function type 2 DM- controlled on lantus and SSI. cont HTN- cont current regimen history of lacunar infarct- on Xarelto Fibromyalgia Tramadol, tolerating increased Gabapentin 600 mg TID Deconditioning: Will need PT/OT. rehab consulted to assist with placement as she was turned down for a snf and home health also denied due to history of non compliance Morbid obesity- diabetic diet Diet: diabetic DVT ppx: Xarelto Disp: Pending. Rehab consult pending. patient cannot go to SNF, she was not approved. attempted home with home health but she was also denied for this due to hx of non compliance. working with CM to determine placement as she does not appear safe to go home. Currently awaiting a rehab consultation. Objective: Vital Signs Temp Pulse Resp BP Pulse Ox 36.7 C 58 L 20 92/49 L 92 06/12/18 15:45 06/12/18 15:45 06/12/18 15:45 06/12/18 15:45 06/12/18 15:45 Laboratory Results 06/04/18 06:10 06/07/18 15:41 06/11/18 06/12/18 06/13/18 05:59 05:59 05:59 Intake Total 450 200 Output Total 781 500 500 Balance -331 -300 -500 PT 17.3 SEC (12.0-15.0) H 05/31/18 15:10 INR 1.40 (0.83-1.16) H 05/31/18 15:10 - Physical Exam Constitutional: no apparent distress, appears nourished, not in pain Eyes: PERRL, anicteric sclera, EOMI Ears, Nose, Mouth, Throat: moist mucous membranes, hearing normal, ears appear normal, no oral mucosal ulcers Cardiovascular: regular rate and rhythym, no murmur, rub, or gallop Respiratory: no respiratory distress, no rales or rhonchi, clear to auscultation Gastrointestinal: normoactive bowel sounds, soft, non-tender abdomen, no palpable masses Genitourinary: no bladder fullness, no bladder tenderness, no renal bruits Skin: no rashes or abrasions, no fluctuance, no induration Musculoskeletal: full muscle strength, no muscle tenderness, normal joint ROM Neurologic: AAOx3, sensation intact bilaterally Psychiatric: interacting appropriately, not anxious, not encephalopathic, thought process linear ICD10 Worksheet Patient Problems: Problems Problem Status Onset Cellulitis Acute Urinary tract infection Acute Contusion of right hip Acute Dehydration Acute Frequent falls Acute
[2018-06-12] MEDS: HYDROCODONE/APAP 5/325 TAB PO PRN (17:54)
[2018-06-12] MEDS: INSULIN GLARGINE 100 UNITS/ML UNIT SC SCH (21:36)
[2018-06-13] MEDS: INSULIN LISPRO 100 UNIT/ML SC SCH ×3 (09:24→17:45)
[2018-06-13] MEDS: LOSARTAN POTASSIUM 50 MG TAB PO SCH (10:34)
[2018-06-13] MEDS: RIVAROXABAN 20 MG TAB PO SCH (10:34)
[2018-06-13] MEDS: GABAPENTIN 300 MG CAP PO SCH ×3 (10:35→21:24)
[2018-06-13] MEDS: SERTRALINE HCL 100 MG TAB PO SCH (10:36)
[2018-06-13] MEDS: FLUCONAZOLE 100 MG TAB PO SCH (10:36)
[2018-06-13] MEDS: HYDROCHLOROTHIAZIDE 12.5 MG CAP PO SCH (10:37)
[2018-06-13] MEDS: CYANO/VITAMIN B12 1000 MCG TAB PO SCH (10:37)
[2018-06-13] MEDS: KETOCONAZOLE 2% 15 GM CREAM TP SCH (11:59)
--- NOTE | 2018-06-13 15:44 | HOSPPROG ---
Hospitalist Progress Note Assessment/Plan: Panniculitis: completed keflex and doxy. continue diflucan at 400 daily through 06/15 then 200qd for two weeks. Monitor liver function type 2 DM- controlled on lantus and SSI. cont HTN- cont current regimen history of lacunar infarct- on Xarelto Fibromyalgia Tramadol, tolerating increased Gabapentin 600 mg TID Deconditioning: Will need PT/OT. rehab consulted to assist with placement as she was turned down for a snf and home health also denied. Morbid obesity- diabetic diet Diet: diabetic DVT ppx: Xarelto Disp: Pending. Rehab consult pending. patient cannot go to SNF, she was not approved. PT/OT recommending SNF but patient denied. Inpatient rehab placement possible, but if not approved will need to rehab here. Objective: Vital Signs Temp Pulse Resp BP Pulse Ox 36.5 C 63 12 112/58 L 93 06/13/18 08:00 06/13/18 08:00 06/13/18 08:00 06/13/18 10:37 06/13/18 08:00 Laboratory Results 06/04/18 06:10 06/07/18 15:41 06/12/18 06/13/18 06/14/18 05:59 05:59 05:59 Intake Total 200 500 200 Output Total 500 1250 300 Balance -300 -750 -100 PT 17.3 SEC (12.0-15.0) H 05/31/18 15:10 INR 1.40 (0.83-1.16) H 05/31/18 15:10 - Physical Exam Constitutional: no apparent distress, appears nourished, not in pain Eyes: PERRL, anicteric sclera, EOMI Ears, Nose, Mouth, Throat: moist mucous membranes, hearing normal, ears appear normal, no oral mucosal ulcers Cardiovascular: regular rate and rhythym, no murmur, rub, or gallop Respiratory: no respiratory distress, no rales or rhonchi, clear to auscultation Gastrointestinal: normoactive bowel sounds, soft, non-tender abdomen, no palpable masses Genitourinary: no bladder fullness, no bladder tenderness, no renal bruits Skin: no rashes or abrasions, no fluctuance, no induration Musculoskeletal: full muscle strength, no muscle tenderness, normal joint ROM Neurologic: AAOx3, sensation intact bilaterally Psychiatric: interacting appropriately, not anxious, not encephalopathic, thought process linear Lymph, Heme, Immunologic: no cervical LAD, no supraclavicular LAD ICD10 Worksheet Patient Problems: Problems Problem Status Onset Cellulitis Acute Urinary tract infection Acute Contusion of right hip Acute Dehydration Acute Frequent falls Acute
[2018-06-13] MEDS: INSULIN GLARGINE 100 UNITS/ML UNIT SC SCH (21:23)
--- NOTE | 2018-06-13 21:37 | ASMTCMCOM ---
CM Note CM Note Notes: Patient is out of SNF medicare days with only 1 copay day left as confirmed by Jazmin in financial services. Spoke with [facility] who is considering patient for inpatient rehab program. However, Guera states she is not sure patient will qualify for their program. She has several questions to get answered and will get back to us. Spoke with Hussein Santiago of [facility] who states they cannot take the patient because they cannot staff all of her needs. Conferenced with patient's nurse who states patient's wounds are still needing maintanence care and the patient will not be able to do this herself. Lynnette had difficulties cleaning and dressing the area herself and called for wound care's assistance to complete the task. She foresees if the patient goes home without wound care and/or nursing services to assist her, she may be returning to the hospital. [facility] has checked with [facility], [facility], [facility], [facility], and [facility].All of these agencies have declined due to not going to the area or not being able to staff the patient's needs. The discharge plan currently is waiting to see if Inpatient Rehab can help the patient. We will also check to see if patient can private pay for a short stay at a SNF. CM will follow. Date Signed: 06/13/2018 04:14 PM Electronically Signed By:Estelle Jackson LCSW
[2018-06-14] MEDS: FLUCONAZOLE 100 MG TAB PO SCH (10:50)
[2018-06-14] MEDS: RIVAROXABAN 20 MG TAB PO SCH (10:51)
[2018-06-14] MEDS: SERTRALINE HCL 100 MG TAB PO SCH (10:51)
[2018-06-14] MEDS: GABAPENTIN 300 MG CAP PO SCH ×3 (10:52→21:04)
[2018-06-14] MEDS: CYANO/VITAMIN B12 1000 MCG TAB PO SCH (10:52)
[2018-06-14] MEDS: INSULIN LISPRO 100 UNIT/ML SC SCH ×3 (10:53→18:38)
[2018-06-14] MEDS: LOSARTAN POTASSIUM 50 MG TAB PO SCH (10:57)
[2018-06-14] MEDS: HYDROCHLOROTHIAZIDE 12.5 MG CAP PO SCH (10:58)
[2018-06-14] MEDS: KETOCONAZOLE 2% 15 GM CREAM TP SCH (10:58)
--- NOTE | 2018-06-14 15:07 | ASMTCMCOM ---
CM Note CM Note Notes: Pts case discussed w/ Dr. Taylor. CM met w/ pt for dispo planning. Inpatient rehab has denied pt at this time. Inpatient rehab reports that she does not qualify for their level of care and her issues are primarily medical. Guera suggested that referrals made to LTAC. CM sent a referral to [facility]. Pt reports that if the only option is for her to hire unskilled HC, she will. Pt reports that she will be able to arrange start of care on Tuesday with [facility]. Pt reports that she will need transportation home. Pt reports that she does not have any money to pay for transportation, friends or family to pick her up. Pt is interested in [facility]. CM spoke a rep from [facility] [employer] [facility]. 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 CM to discuss w/ pt. Pt reports that she will not qualify for Medicaid. CM notified Mary and Nanette about this case. Plan: TBD Date Signed: 06/14/2018 03:07 PM Electronically Signed By:BARBARA Landon
--- NOTE | 2018-06-14 16:38 | HOSPPROG ---
Hospitalist Progress Note Assessment/Plan: Panniculitis: completed keflex and doxy. completes diflucan 400 daily tomorrow, then transition to 200qd for two weeks. type 2 DM- controlled on lantus and SSI. cont HTN- cont current regimen history of lacunar infarct- on Xarelto Fibromyalgia Tramadol, tolerating increased Gabapentin 600 mg TID Deconditioning: Will need PT/OT. rehab consulted to assist with placement as she was turned down for a snf and home health also denied. Morbid obesity- diabetic diet Diet: diabetic DVT ppx: Xarelto Disp: struggling with dispo. patient denied snf, rehab, and home care. had long discussion with Cm and OT regarding patient. OT feels patient not improving and may need chcf care. CM currently trying to find chcf care to take patient. Subjective: patient with no complaints. anxious for discharge. Objective: Vital Signs Temp Pulse Resp BP Pulse Ox 36.9 C 55 L 18 95/51 L 97 06/14/18 16:00 06/14/18 16:00 06/14/18 16:00 06/14/18 16:00 06/14/18 16:00 Laboratory Results 06/04/18 06:10 06/07/18 15:41 06/13/18 06/14/18 06/15/18 05:59 05:59 05:59 Intake Total 500 900 Output Total 1250 650 Balance -750 250 PT 17.3 SEC (12.0-15.0) H 05/31/18 15:10 INR 1.40 (0.83-1.16) H 05/31/18 15:10 - Time Spent With Patient Time Spent with Patient: greater than 35 minutes Time Spent with Patient: Greater than 35 minutes spent on this patients care, greater than 50% of time spent counseling, educating, and coordinating care regarding the above mentioned plan. - Physical Exam Constitutional: no apparent distress, appears nourished, not in pain Eyes: PERRL, anicteric sclera, EOMI Ears, Nose, Mouth, Throat: moist mucous membranes, hearing normal, ears appear normal, no oral mucosal ulcers Cardiovascular: regular rate and rhythym, no murmur, rub, or gallop Respiratory: no respiratory distress, no rales or rhonchi, clear to auscultation Gastrointestinal: normoactive bowel sounds, soft, non-tender abdomen, no palpable masses Genitourinary: no bladder fullness, no bladder tenderness, no renal bruits Skin: no rashes or abrasions, no fluctuance, no induration Musculoskeletal: full muscle strength, no muscle tenderness, normal joint ROM Neurologic: AAOx3, sensation intact bilaterally Psychiatric: interacting appropriately, not anxious, not encephalopathic, thought process linear Lymph, Heme, Immunologic: no cervical LAD, no supraclavicular LAD ICD10 Worksheet Patient Problems: Problems Problem Status Onset Cellulitis Acute Urinary tract infection Acute Contusion of right hip Acute Dehydration Acute Frequent falls Acute
[2018-06-14] MEDS: INSULIN GLARGINE 100 UNITS/ML UNIT SC SCH (21:04)
[2018-06-15] MEDS: LOSARTAN POTASSIUM 50 MG TAB PO SCH (09:10)
[2018-06-15] MEDS: SERTRALINE HCL 100 MG TAB PO SCH (09:10)
[2018-06-15] MEDS: RIVAROXABAN 20 MG TAB PO SCH (09:10)
[2018-06-15] MEDS: FLUCONAZOLE 100 MG TAB PO SCH (09:10)
[2018-06-15] MEDS: CYANO/VITAMIN B12 1000 MCG TAB PO SCH (09:10)
[2018-06-15] MEDS: HYDROCHLOROTHIAZIDE 12.5 MG CAP PO SCH (09:11)
[2018-06-15] MEDS: GABAPENTIN 300 MG CAP PO SCH ×3 (09:11→22:24)
[2018-06-15] MEDS: KETOCONAZOLE 2% 15 GM CREAM TP SCH (09:13)
[2018-06-15] MEDS: INSULIN LISPRO 100 UNIT/ML SC SCH ×3 (10:15→17:46)
--- NOTE | 2018-06-15 11:23 | WOCRNPDOC ---
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 Keep cushions on oxygen tubing. Wound care will sign off. Please reconsult prn if wounds do not improve or open.
--- NOTE | 2018-06-15 14:39 | HOSPPROG ---
Hospitalist Progress Note Assessment/Plan: Panniculitis: completed keflex and doxy. completed high dose diflucan, now to complete 200mg daily of diflucan. case discussed with ID. type 2 DM- controlled on lantus and SSI. cont HTN- cont current regimen history of lacunar infarct- on Xarelto Fibromyalgia Tramadol, tolerating increased Gabapentin 600 mg TID Deconditioning: Will need PT/OT. rehab consulted to assist with placement as she was turned down for a snf and home health also denied. Morbid obesity- diabetic diet Diet: diabetic DVT ppx: Xarelto Disp: struggling with dispo. patient able to discharge home with self pay home care on tuesday. Subjective: patient says her pannus is still sore, but better. no nv, fevers chills or other. Objective: Vital Signs Temp Pulse Resp BP Pulse Ox 37.2 C 57 L 16 92/63 L 88 L 06/15/18 08:00 06/15/18 08:00 06/15/18 08:00 06/15/18 09:11 06/15/18 08:00 Laboratory Results 06/04/18 06:10 06/15/18 04:49 06/14/18 06/15/18 06/16/18 05:59 05:59 05:59 Intake Total 900 1 Output Total 650 250 125 Balance 250 -249 -125 PT 17.3 SEC (12.0-15.0) H 05/31/18 15:10 INR 1.40 (0.83-1.16) H 05/31/18 15:10 - Physical Exam Constitutional: no apparent distress, appears nourished, not in pain Eyes: PERRL, anicteric sclera, EOMI Ears, Nose, Mouth, Throat: moist mucous membranes, hearing normal, ears appear normal, no oral mucosal ulcers Cardiovascular: regular rate and rhythym, no murmur, rub, or gallop Respiratory: no respiratory distress, no rales or rhonchi, clear to auscultation Gastrointestinal: normoactive bowel sounds, soft, non-tender abdomen, no palpable masses Genitourinary: no bladder fullness, no bladder tenderness, no renal bruits Skin: no rashes or abrasions, no fluctuance, no induration Musculoskeletal: full muscle strength, no muscle tenderness, normal joint ROM Neurologic: AAOx3, sensation intact bilaterally Psychiatric: interacting appropriately, not anxious, not encephalopathic, thought process linear Lymph, Heme, Immunologic: no cervical LAD, no supraclavicular LAD ICD10 Worksheet Patient Problems: Problems Problem Status Onset Cellulitis Acute Urinary tract infection Acute Contusion of right hip Acute Dehydration Acute Frequent falls Acute
[2018-06-15] MEDS: HYDROCODONE/APAP 5/325 TAB PO PRN (15:17)
--- NOTE | 2018-06-15 15:42 | ASMTCMCOM ---
CM Note CM Note Notes: CM met w/ pt and she has decided to use [facility]. Pt was looking at using [facility] but they will not have any availabilities. Pt is planning on having [facility] daily for 5 hours in the beginning. 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 CM communicated most likely plan to Dr. Taylor. Lora from [facility] will stop by and meet w/ pt. [facility] has denied pt. Lora will need to bring this case to her clinical team. CM to touch base w/ Lora tomorrow. CM to follow. Date Signed: 06/15/2018 03:42 PM Electronically Signed By:BARBARA Landon
[2018-06-15] MEDS: INSULIN GLARGINE 100 UNITS/ML UNIT SC SCH (22:24)
[2018-06-16] MEDS: HYDROCHLOROTHIAZIDE 12.5 MG CAP PO SCH (09:48)
[2018-06-16] MEDS: LOSARTAN POTASSIUM 50 MG TAB PO SCH (09:48)
[2018-06-16] MEDS: GABAPENTIN 300 MG CAP PO SCH ×3 (09:48→21:59)
[2018-06-16] MEDS: FLUCONAZOLE 100 MG TAB PO SCH (09:49)
[2018-06-16] MEDS: CYANO/VITAMIN B12 1000 MCG TAB PO SCH (09:49)
[2018-06-16] MEDS: SERTRALINE HCL 100 MG TAB PO SCH (09:49)
[2018-06-16] MEDS: INSULIN LISPRO 100 UNIT/ML SC SCH ×3 (09:49→19:05)
[2018-06-16] MEDS: RIVAROXABAN 20 MG TAB PO SCH (09:49)
[2018-06-16] MEDS: KETOCONAZOLE 2% 15 GM CREAM TP SCH (15:06)
[2018-06-16] MEDS: HYDROCODONE/APAP 5/325 TAB PO PRN (15:54)
--- NOTE | 2018-06-16 16:35 | ASMTCMCOM ---
CM Note CM Note Notes: [facility] has denied pt for their inpatient rehab and LTAC. They are concerned about her d/c plan after rehab. Therapies at [facility] have all been recommending SNF. CM suggested staying at a hotel in the area to get skilled HC services. Pt reports that she will think about it. Pt is out of her Medicare days. 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 Pt has an appointment w/ [facility] at her home in [place] on Tuesday at noon. Pt would like her prescriptions to be sent to the [facility] at [facility] in [facility]. CM to follow. Plan: TBD Date Signed: 06/16/2018 04:34 PM Electronically Signed By:BARBARA Landon
--- NOTE | 2018-06-16 18:13 | HOSPPROG ---
Hospitalist Progress Note Assessment/Plan: Panniculitis: completed keflex and doxy. completed high dose diflucan, now to complete 200mg daily of diflucan. case discussed with ID. type 2 DM- controlled on lantus and SSI. cont HTN- cont current regimen history of lacunar infarct- on Xarelto Fibromyalgia Tramadol, tolerating increased Gabapentin 600 mg TID Deconditioning: Will need PT/OT. rehab consulted to assist with placement as she was turned down for a snf and home health also denied. Morbid obesity- diabetic diet Diet: diabetic DVT ppx: Xarelto Disp: struggling with dispo. patient able to discharge home with self pay home care on tuesday. recommended to get hotel in [place] and then she can get health visits for free. working with CM to gt out on Tuesday Subjective: no new complaints. still sore in pannus. Objective: Vital Signs Temp Pulse Resp BP Pulse Ox 36.6 C 54 L 18 92/55 L 91 L 06/16/18 15:14 06/16/18 15:14 06/16/18 15:14 06/16/18 15:14 06/16/18 15:14 Laboratory Results 06/04/18 06:10 06/15/18 04:49 06/15/18 06/16/18 06/17/18 05:59 05:59 05:59 Intake Total 1 250 Output Total 250 825 Balance -249 -575 PT 17.3 SEC (12.0-15.0) H 05/31/18 15:10 INR 1.40 (0.83-1.16) H 05/31/18 15:10 ICD10 Worksheet Patient Problems: Problems Problem Status Onset Cellulitis Acute Urinary tract infection Acute Contusion of right hip Acute Dehydration Acute Frequent falls Acute
[2018-06-16] MEDS: INSULIN GLARGINE 100 UNITS/ML UNIT SC SCH (21:59)
[2018-06-17] MEDS: INSULIN LISPRO 100 UNIT/ML SC SCH ×3 (09:34→18:29)
[2018-06-17] MEDS: RIVAROXABAN 20 MG TAB PO SCH (11:01)
[2018-06-17] MEDS: SERTRALINE HCL 100 MG TAB PO SCH ×2 (11:01→11:02)
[2018-06-17] MEDS: FLUCONAZOLE 100 MG TAB PO SCH (11:01)
[2018-06-17] MEDS: GABAPENTIN 300 MG CAP PO SCH ×3 (11:02→21:14)
[2018-06-17] MEDS: KETOCONAZOLE 2% 15 GM CREAM TP SCH (11:03)
[2018-06-17] MEDS: CYANO/VITAMIN B12 1000 MCG TAB PO SCH (11:03)
[2018-06-17] MEDS: HYDROCHLOROTHIAZIDE 12.5 MG CAP PO SCH (11:18)
[2018-06-17] MEDS: LOSARTAN POTASSIUM 50 MG TAB PO SCH (11:18)
--- NOTE | 2018-06-17 16:19 | HOSPPROG ---
Hospitalist Progress Note Assessment/Plan: Panniculitis: completed keflex and doxy. completed high dose diflucan, now to complete 200mg daily of diflucan for two weeks. . case discussed with ID who still feels this is the appropriate course of action. type 2 DM- controlled on lantus and SSI. cont HTN- cont current regimen history of lacunar infarct- on Xarelto Fibromyalgia Tramadol, tolerating increased Gabapentin 600 mg TID Deconditioning: Will need PT/OT. rehab consulted to assist with placement as she was turned down for a snf and home health also denied. current plan is for patient to self pay for HH. Morbid obesity- diabetic diet Diet: diabetic DVT ppx: Xarelto Disp: struggling with dispo. patient able to discharge home with self pay home care on tuesday. recommended to get hotel in [place] and then she can get health visits for free. working with CM to gt out on Tuesday Subjective: patient feels stronger today. happy with the plan for dc on tuesday. no pain, nv, fevers chills or other complaints today Objective: Vital Signs Temp Pulse Resp BP Pulse Ox 36.5 C 60 18 101/58 L 94 06/17/18 15:41 06/17/18 15:41 06/17/18 15:41 06/17/18 15:41 06/17/18 15:41 Laboratory Results 06/04/18 06:10 06/15/18 04:49 06/16/18 06/17/18 06/18/18 05:59 05:59 05:59 Intake Total 250 101 Output Total 825 500 200 Balance -575 -399 -200 PT 17.3 SEC (12.0-15.0) H 05/31/18 15:10 INR 1.40 (0.83-1.16) H 05/31/18 15:10 - Physical Exam Constitutional: no apparent distress, appears nourished, not in pain Eyes: PERRL, anicteric sclera, EOMI Ears, Nose, Mouth, Throat: moist mucous membranes, hearing normal, ears appear normal, no oral mucosal ulcers Cardiovascular: regular rate and rhythym, no murmur, rub, or gallop Respiratory: no respiratory distress, no rales or rhonchi, clear to auscultation Gastrointestinal: normoactive bowel sounds, soft, non-tender abdomen, no palpable masses Genitourinary: no bladder fullness, no bladder tenderness, no renal bruits Skin: no rashes or abrasions, no fluctuance, no induration, other (post inflammatory hyperpigmentation of her pannus, with smell of sharif. ) Musculoskeletal: full muscle strength, no muscle tenderness, normal joint ROM Neurologic: AAOx3, sensation intact bilaterally Psychiatric: interacting appropriately, not anxious, not encephalopathic, thought process linear Lymph, Heme, Immunologic: no cervical LAD, no supraclavicular LAD ICD10 Worksheet Patient Problems: Problems Problem Status Onset Cellulitis Acute Urinary tract infection Acute Contusion of right hip Acute Dehydration Acute Frequent falls Acute
[2018-06-17] MEDS: INSULIN GLARGINE 100 UNITS/ML UNIT SC SCH (21:22)
[2018-06-18] MEDS: INSULIN LISPRO 100 UNIT/ML SC SCH ×3 (09:41→19:14)
[2018-06-18] MEDS: CYANO/VITAMIN B12 1000 MCG TAB PO SCH (09:59)
[2018-06-18] MEDS: FLUCONAZOLE 100 MG TAB PO SCH (10:00)
[2018-06-18] MEDS: HYDROCHLOROTHIAZIDE 12.5 MG CAP PO SCH (10:00)
[2018-06-18] MEDS: GABAPENTIN 300 MG CAP PO SCH ×3 (10:00→21:16)
[2018-06-18] MEDS: RIVAROXABAN 20 MG TAB PO SCH (10:01)
[2018-06-18] MEDS: LOSARTAN POTASSIUM 50 MG TAB PO SCH (10:01)
--- NOTE | 2018-06-18 13:47 | HOSPPROG ---
Hospitalist Progress Note Assessment/Plan: 72 year old female with IDDM, HTN admitted with pannus infection requiring IV antibiotics and diflucan. completed antibiotics and now on last 2 weeks of oral diflucan. Patient stable for discharge but per PT/OT requiring SNF. patient was turned down, SNF, LTAC, LTC, rehab and group home health because she lives in [place]. Eventually plan was determined that patient would pay out of pocket for home health. Panniculitis: completed keflex and doxy. completed high dose diflucan, now to complete 200mg daily of diflucan for two weeks. case discussed with ID who still feels this is the appropriate course of action. type 2 DM- controlled on lantus and SSI. cont HTN- cont current regimen history of lacunar infarct- on Xarelto Fibromyalgia ultram and neurontin with good control Deconditioning: Will need PT/OT. rehab consulted to assist with placement as she was turned down for a snf and home health also denied. current plan is for patient to self pay for HH. Morbid obesity- diabetic diet Diet: diabetic DVT ppx: Xarelto Disp: struggling with dispo. patient able to discharge home with self pay home care on tuesday. Objective: Vital Signs Temp Pulse Resp BP Pulse Ox 36.3 C 65 18 122/57 H 91 L 06/18/18 08:00 06/18/18 08:00 06/18/18 08:00 06/18/18 10:01 06/18/18 08:00 Laboratory Results 06/04/18 06:10 06/15/18 04:49 06/17/18 06/18/18 06/19/18 05:59 05:59 05:59 Intake Total 101 150 Output Total 500 600 Balance -399 -450 PT 17.3 SEC (12.0-15.0) H 05/31/18 15:10 INR 1.40 (0.83-1.16) H 05/31/18 15:10 - Physical Exam Constitutional: no apparent distress, appears nourished, not in pain Eyes: PERRL, anicteric sclera, EOMI Ears, Nose, Mouth, Throat: moist mucous membranes, hearing normal, ears appear normal, no oral mucosal ulcers Cardiovascular: regular rate and rhythym, no murmur, rub, or gallop Respiratory: no respiratory distress, no rales or rhonchi, clear to auscultation Gastrointestinal: normoactive bowel sounds, soft, non-tender abdomen, no palpable masses, other (pannus with resolving erythema, but still smell of sharif. ) Genitourinary: no bladder fullness, no bladder tenderness, no renal bruits Skin: no rashes or abrasions, no fluctuance, no induration Musculoskeletal: full muscle strength, no muscle tenderness, normal joint ROM Neurologic: AAOx3, sensation intact bilaterally Psychiatric: interacting appropriately, not anxious, not encephalopathic, thought process linear Lymph, Heme, Immunologic: no cervical LAD, no supraclavicular LAD ICD10 Worksheet Patient Problems: Problems Problem Status Onset Cellulitis Acute Urinary tract infection Acute Contusion of right hip Acute Dehydration Acute Frequent falls Acute
[2018-06-18 15:41] LABS: PLATELET COUNT 279 10^3/uL (150-400)
[2018-06-18] MEDS: KETOCONAZOLE 2% 15 GM CREAM TP SCH (16:00)
[2018-06-18] MEDS: INSULIN GLARGINE 100 UNITS/ML UNIT SC SCH (21:23)
[2018-06-19 05:35] LABS: PLATELET COUNT 254 10^3/uL (150-400)
[2018-06-19] MEDS: INSULIN LISPRO 100 UNIT/ML SC SCH (07:15)
[2018-06-19 07:24] VITALS: BP 123/66
[2018-06-19] MEDS: HYDROCHLOROTHIAZIDE 12.5 MG CAP PO SCH (09:06)
[2018-06-19] MEDS: GABAPENTIN 300 MG CAP PO SCH (09:06)
[2018-06-19] MEDS: FLUCONAZOLE 100 MG TAB PO SCH (09:06)
[2018-06-19] MEDS: CYANO/VITAMIN B12 1000 MCG TAB PO SCH (09:08)
[2018-06-19] MEDS: RIVAROXABAN 20 MG TAB PO SCH (09:08)
[2018-06-19] MEDS: KETOCONAZOLE 2% 15 GM CREAM TP SCH (09:08)
[2018-06-19] MEDS: LOSARTAN POTASSIUM 50 MG TAB PO SCH (09:08)
[2018-06-19] MEDS: SERTRALINE HCL 100 MG TAB PO SCH (09:08)
--- NOTE | 2018-06-19 10:39 | HOSPPROG ---
Hospitalist Progress Note Assessment/Plan: 72 year old female with IDDM, HTN admitted with pannus infection requiring IV antibiotics and diflucan. completed antibiotics and now on last 2 weeks of oral diflucan. Patient stable for discharge but per PT/OT requiring SNF. patient was turned down, SNF, LTAC, LTC, rehab and [facility] health because she lives in [place]. Eventually plan was determined that patient would pay out of pocket for home health. Panniculitis: completed keflex and doxy. completed high dose diflucan, now to complete 200mg daily of diflucan for two weeks. case discussed with ID who still feels this is the appropriate course of action. type 2 DM- controlled on lantus and SSI. cont HTN- cont current regimen history of lacunar infarct- on Xarelto Fibromyalgia ultram and neurontin with good control Deconditioning: Will need PT/OT. rehab consulted to assist with placement as she was turned down for a snf and home health also denied. current plan is for patient to self pay for HH. Morbid obesity- diabetic diet Diet: diabetic DVT ppx: Xarelto Disp: home today w home care > 30 minutes on dc Subjective: afebrile. ready for dc Objective: Vital Signs Temp Pulse Resp BP Pulse Ox 36.8 C 63 16 123/66 H 92 06/19/18 07:22 06/19/18 07:22 06/19/18 07:22 06/19/18 07:22 06/19/18 07:22 Laboratory Results 06/19/18 05:05 06/19/18 05:05 06/18/18 06/19/18 06/20/18 05:59 05:59 05:59 Intake Total 150 200 Output Total 600 350 Balance -450 -150 PT 17.3 SEC (12.0-15.0) H 05/31/18 15:10 INR 1.40 (0.83-1.16) H 05/31/18 15:10 - Physical Exam Constitutional: no apparent distress, appears nourished Eyes: PERRL, anicteric sclera Ears, Nose, Mouth, Throat: moist mucous membranes, hearing normal Cardiovascular: regular rate and rhythym, no murmur, rub, or gallop Respiratory: no respiratory distress, no rales or rhonchi Gastrointestinal: normoactive bowel sounds, soft, non-tender abdomen Genitourinary: no bladder fullness, No lopez in urethra Skin: warm, normal color Musculoskeletal: full muscle strength Neurologic: AAOx3 ICD10 Worksheet Patient Problems: Problems Problem Status Onset Cellulitis Acute Urinary tract infection Acute Contusion of right hip Acute Dehydration Acute Frequent falls Acute
--- NOTE | 2018-06-19 10:40 | PDIAF ---
- Diagnosis Diagnosis: panniculitis Code Status: Full Code - Medication Management Discharge Medications: electronically signed and located in the Home Medication List. - Orders Services needed: Home Care, Registered Nurse, Physical Therapy, Occupational Therapy Home Care Face to Face: I certify that this patient was under my care and that I had the required [id number] encounter meeting the encounter requirements on the discharge day. My findings support the fact that the patient is homebound as defined in Home Care Face to Face Continued: CMS Chapter 7 Medicare Benefits Manual 30.1.1 , The condition of the patient is such that there exists a normal inability to leave home and consequently, leaving home would require a considerable and taxing effort. Isolation Type: None Additional Instructions: Please follow up within 3- 4 weeks of discharge with outpatient [facility] if you continue to have issues with your wounds: You may reach them at [phone] for an appointment and continued management of your wounds. Please call them ibis to schedule your appointment as they fill up quickly. If before that time you have any issues, please follow up with your PCP. Recommendations for Intertrigo (intertriginous dermatitis) Keep the skin folds as dry as possible Dry off well after bathing or showering Reduce [id number] contact Wear loose, soft underclothing instead of tight bras and underwear Chastity Hernandez RN Wound Care Team - Follow Up Care Current Providers and Referrals: Patient,NotPresent [Unknown] - As per Instructions
--- NOTE | 2018-06-19 14:21 | ASDISCHSUM ---
Discharge Information Plan Status:Home with No Needs Medically Cleared to Leave:06/18/2018 Discharge Date:06/18/2018 CM D/C Disposition:Home, Routine, Self-Care ADT D/C Disposition: Projected Discharge Date:06/19/2018 11:00 AM Transportation at D/C:Other Discharge Delay Reason: Follow-Up Date:06/19/2018 11:00 AM Discharge Slot:2 - 12:01 pm - 18:00 pm Final Diagnosis:Cellulitis, UTI, Dehydration Placement Information Referral Type:*Retirement/SNF Referral ID:[id number] Provider Name: Address 1: Phone Number: Address 2: Fax Number: City: [place]: State: Referral Type:Palliative Care Referral ID:[id number] Provider Name: Address 1: Phone Number: Address 2: Fax Number: City: [place]: State: Referral Type:*Home Health Care Services Referral ID:[id number] Provider Name: Address 1: Phone Number: Address 2: Fax Number: City: [place]: State: Referral Type:[facility] Referral ID:[id number] Provider Name: Address 1: Phone Number: Address 2: Fax Number: City: [place]: State: Patient Contact Information Contact Name:HEIDY Relationship:Lan Address: Work Phone: City: [facility] Phone: [facility] Code: Email: Financial Information Financial Class:Medicare Primary Plan Desc:MEDICARE INPATIENT Primary Plan Number:[id number] Secondary Plan Desc:Floor64 [facility] Secondary Plan Number:[id number] Assessment Information [facility] CM Progress Note CM Note CM Note Notes: Received call from [facility], pt is current with them. They do not feel pt is appropriate to return home to [place] [facility], pt is not caring for self very well. PT jake gilbert CM w/f. REN[place] Plan: TBD Date Signed: 06/01/2018 03:17 PM Electronically Signed By:Dianna Garduno RN [facility] Progress Note CM Note CM Note Notes: [facility] states they need more information on patient to determine admission. Left a message for Thea who plans to visit with the patient today. Updates Allscripted to [facility]. Awaiting Thea's return call. CM will follow. Date Signed: 06/05/2018 11:31 AM Electronically Signed By:Estelle Jackson LCSW [facility] CM Progress Note CM Note CM Note Notes: Mary Anne from [facility] visited with the patient and also spoke with her insurance companies. Patient has 7 more days before her Medicare rehab days will replenish. She currently has used all her Medicare rehab days. Her secondary insurance does not cover rehab services. Currently, the patient is not ready for discharge, so we will continue to monitor her medical situation. Patient can either discharge directly to [facility] 7 days from now or if she is ready for discharge sooner, she can go home with home health support and in 7 days have her PCP admit her to SNF rehab with [facility]. She will be within her 30 day limit of hospitalization and will have had her 3 midnights. Once she is 30 days past her current hospitalization, she will no longer be eligible to admit from home. There are safety concerns for the patient with the second option in that [place] and home health will only visit a couple of times per week. [facility] has accepted the patient if we utilize one of these 2 options so they will get reimbursement. CM will follow. Date Signed: 06/05/2018 03:54 PM Electronically Signed By:Estelle Jackson LCSW [facility] CM Progress Note CM Note CM Note Notes: Patient had a palliative care consult ordered and got a pain management consult today with [facility] [employer] [facility]. A referral was sent per Mel's request. CM will follow. Date Signed: 06/06/2018 04:17 PM Electronically Signed By:Estelle Jackson LCSW [facility] CM Progress Note CM Note CM Note Notes: Pt to discharge on Tuesday to [facility] in [place] with [facility]. Referrals have been sent and pt accepted. CM to follow. D/C Plan: [facility] with [facility] Date Signed: 06/10/2018 03:10 PM Electronically Signed By:Ginny Chisholm [facility] CM Progress Note CM Note CM Note Notes: Thea from [facility] informed CM that pts insurance will not approve from SNF stay. Thea reports that pt will need to be out of the hospital for 60 days for medicare to pay for snf again. CM checking w/ financial counseling on how many snf days she has left. Dr. Gusman put in a rehab consult. provided pt w/ [facility] to see how much private duty would cost. Pt reports that she is able to pay $20-$25 hourly. Multiple skilled HC agencies referral sent. [facility] is reviewing this case. [facility] is unable to take back because pt has a hx of being non-compliant. Pt will need assistance on getting home. CM asked pt to call medicare to see if stretcher transport is covered. CM to follow. Plan: TBD Date Signed: 06/12/2018 02:58 PM Electronically Signed By:BARBARA Landon [facility] Progress Note CM Note CM Note Notes: Patient is out of SNF medicare days with only 1 copay day left as confirmed by Jazmin in financial services. Spoke with [facility] who is considering patient for inpatient rehab program. However, [facility] states she is not sure patient will qualify for their program. She has several questions to get answered and will get back to us. Spoke with Hussein Santiago of [facility] who states they cannot take the patient because they cannot staff all of her needs. Conferenced with patient's nurse who states patient's wounds are still needing maintanence care and the patient will not be able to do this herself. Lynnette had difficulties cleaning and dressing the area herself and called for wound care's assistance to complete the task. She foresees if the patient goes home without wound care and/or nursing services to assist her, she may be returning to the hospital. [facility] has checked with [facility], [facility], [facility], and [facility].All of these agencies have declined due to not going to the area or not being able to staff the patient's needs. The discharge plan currently is waiting to see if Inpatient Rehab can help the patient. We will also check to see if patient can private pay for a short stay at a SNF. CM will follow. Date Signed: 06/13/2018 04:14 PM Electronically Signed By:Estelle Jackson LCSW [facility] Progress Note CM Note CM Note Notes: Pts case discussed w/ Dr. Taylor. CM met w/ pt for dispo planning. Inpatient rehab has denied pt at this time. Inpatient rehab reports that she does not qualify for their level of care and her issues are primarily medical. [facility]era suggested that referrals made to LTAC. CM sent a referral to [facility]. Pt reports that if the only option is for her to hire unskilled HC, she will. Pt reports that she will be able to arrange start of care on Tuesday with [facility]. Pt reports that she will need transportation home. Pt reports that she does not have any money to pay for transportation, friends or family to pick her up. Pt is interested in meals on wheels. CM spoke a rep from [employer]. They report that they do not deliver to [place] but pt or family are welcome to mushroom picker meals at their [place] location. CM to discuss w/ pt. Pt reports that she will not qualify for Medicaid. CM notified Mary and Nanette about this case. Plan: TBD Date Signed: 06/14/2018 03:07 PM Electronically Signed By:BARBARA Landon [facility] CM Progress Note CM Note CM Note Notes: CM met w/ pt and she has decided to use [facility]. Pt was looking at using [facility] but they will not have any availabilities. Pt is planning on having [facility] daily for 5 hours in the beginning. CM informed pt that she can mushroom picker meals at [facility] [employer] [facility]. CM informed pt that she or friends can mushroom picker furture meals from them. CM communicated most likely plan to Dr. Taylor. Lora from [facility] will stop by and meet w/ pt. [facility] has denied pt. Lora will need to bring this case to her clinical team. CM to touch base w/ Lora tomorrow. CM to follow. Date Signed: 06/15/2018 03:42 PM Electronically Signed By:BARBARA Landon [facility] Progress Note CM Note CM Note Notes: [facility] has denied pt for their inpatient rehab and LTAC. They are concerned about her d/c plan after rehab. Therapies at [facility] have all been recommending SNF. CM suggested staying at a hotel in the area to get skilled HC services. Pt reports that she will think about it. Pt is out of her Medicare days. 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 Pt has an appointment w/ Danita [facility] at her home in [place] on Tuesday at noon. Pt would like her prescriptions to be sent to the [facility] at [employer] in [facility]. CM to follow. Plan: TBD Date Signed: 06/16/2018 04:34 PM Electronically Signed By:BARBARA Landon [facility] Progress Note CM Note CM Note Notes: CM met with patient, she states clearly she is going home tomorrow. She states she has set up Home Care services with [facility]. She is requesting the ambulance ride be here to pick her up by 11am in order for her to meet the Home Care Provider at home at 12:30. CM to follow. Plan: Home, independent with unskilled home care. Date Signed: 06/18/2018 03:55 PM Electronically Signed By:Lorrie Jorgensen Case Management Discharge Plan Note Case Management Discharge Discharge Order Complete? Answers: Yes Patient to Obtain Answers: Independently Medications Transportation Arranged Answers: [facility] Stretcher Transport will Pick (Date 06/19/2018 12:00 AM & Time) Case Management Transport Answers: Yes Notes: [facility] for [facility] Form Complete Family Notified Answers: No Notes: no family Discharge Comments Notes: Patient is discharging today to home with [facility]. There is not a home health care service that will go to her address in [place] and patient does not have any SNF days left with Medicare. [facility] will meet her in [place] at 3:00 PM today. Transport has been arranged with [facility] and PCS form prepared for them. Patient will go stretcher for safety and for the wounds she has on her abdomen. process control supervisor is at 12:30PM today. No further needs. Date Signed: 06/19/2018 10:57 AM Electronically Signed By:Estelle Jackson LCSW Intervention Information
--- NOTE | 2018-06-19 14:23 | ASMTDCNOTE ---
Case Management Discharge Discharge Order Complete? Answers: Yes Patient to Obtain Answers: Independently Medications Transportation Arranged Answers: [facility] Stretcher Transport will Pick (Date 06/19/2018 12:00 AM & Time) Case Management Transport Answers: Yes Notes: [facility] for [facility] Form Complete Family Notified Answers: No Notes: no family Discharge Comments Notes: Patient is discharging today to home with [facility]. There is not a home health care service that will go to her address in [place] and patient does not have any SNF days left with Medicare. [facility] will meet her in [place] at 3:00 PM today. Transport has been arranged with [facility] and PCS form prepared for them. Patient will go stretcher for safety and for the wounds she has on her abdomen. pasteurizing supervisor is at 12:30PM today. No further needs. Date Signed: 06/19/2018 10:57 AM Electronically Signed By:Estelle Jackson LCSW
--- NOTE | 2018-06-19 14:23 | ASMTCMCOM ---
CM Note CM Note Notes: CM met with patient, discussed [place] Date Signed: 06/19/2018 11:06 AM Electronically Signed By:Estelle Jackson LCSW
--- NOTE | 2018-06-19 14:23 | ASMTLACE ---
LACE Length of stay for Answers: 14 days or more current admission Acuity / Level of Answers: Yes Care: Did the patient have an inpatient admission? Comorbidities - select Answers: Cerebrovascular disease all that apply (CVA, TIA, aneurysms, vasc ular dementia) Diabetes (uncontrolled or controlled) Opioid dependence / Chronic pain Other Notes: Hx of DVT; HTN # of Emergency department Answers: 1-2 visits in the last 6 months Social determinants Answers: Mental health diagnosis (anxiety, depression, pers onality disorders, etc.) Score: 21 Date Signed: 06/19/2018 11:05 AM Electronically Signed By:Estelle Jackson LCSW
--- NOTE | 2018-06-19 15:36 | GDS ---
DISCHARGE DIAGNOSES: 1. Panniculitis, status post course of antibiotics and antifungals. 2. Hypertension. 3. Diabetes. 4. Morbid obesity. 5. History of stroke on Eliquis. She presented with several weeks of redness under her pannus. She also had fevers. She received a c ourse of antibiotics and antifungals, followed by Infectious Disease, treated with vancomycin and flu conazole and InterDry sheets and Nizoral cream. She was seen by PT, OT, who recommended SNF but there is no payor source for this, so ultimately, she is discharged home with home care that was accomplished today. I also refilled her Dominickis and kirk pearson. /[id number]/MODL
== END 2018-06-19 12:31 | disposition home health service (06) | DRG 607 ==
LOC: EDUNIT# → F3E 18:10
PROVIDERS: ADMIT Internal Medicine; ATTEND Internal Medicine
DX: M79.3 Panniculitis, unspecified (principal); N61.0 Mastitis without abscess; L89.811 Pressure ulcer of head, stage 1; L30.4 Erythema intertrigo; E86.9 Volume depletion, unspecified; I10 Essential (primary) hypertension; E11.9 Type 2 diabetes mellitus without complications; E66.01 Morbid (severe) obesity due to excess calories; Z79.01 Long term (current) use of anticoagulants; Z86.73 Personal history of transient ischemic attack (TIA), and cerebral infarction without residual deficits
CPT/HCPCS: 82607-90; 84484-PO; 96365; 97110-GP; 97116-GP; 97163-GP; 97167-GO; 97530-GO; 97530-GP; 97535-GO; G8978-GP-CJ; G8978-GP-CK; G8978-GP-CM; G8979-GP-CI; G8979-GP-CJ; G8979-GP-CL; G8980-GP-CJ; G8987-GO-CK; G8987-GO-CM; G8988-GO-CJ; G8988-GO-CK; J0696; J1815; J3370

== ENCOUNTER 2018-06-30 16:05 | Inpatient (IN) | payer OTHER ==
--- NOTE | 2018-06-30 16:02 | EDPHY ---
H & P Time Seen by Provider: 06/30/18 16:05 Constitutional: Initial Vital Signs Temperature (C) 29 C L 06/30/18 17:06 Heart Rate 105 H 06/30/18 17:06 Respiratory Rate 20 06/30/18 17:06 Blood Pressure 74/55 L 06/30/18 17:06 O2 Sat (%) 98 06/30/18 17:06 O2 Delivery Mode Simple Mask O2 (L/minute) 15 Allergies/Adverse Reactions: levofloxacin Allergy (Unknown, Verified 05/31/18 14:53) Other-Enter Comments Penicillins Allergy (Verified 05/31/18 14:53) Other-Enter Comments Home Medications: Medication Instructions Recorded Gabapentin [Neurontin 300 MG (*)] 300 mg PO HS 12/16/17 Insulin Glargine [Lantus] 22 unit SC HS 05/31/18 LORazepam [Ativan (*)] 0.5 mg PO BID PRN 05/31/18 Losartan/Hydrochlorothiazide 1 each PO DAILY 05/31/18 [Losartan-Hctz 100-12.5 mg Tab] Nystatin Powder [Mycostatin Powder] 1 marleny TOP DAILY 05/31/18 traMADol [Ultram 50 mg (*)] 50 mg PO Q4HRS PRN 06/01/18 Fluconazole [Diflucan (*)] 200 mg PO DAILY #10 tab 06/19/18 Rivaroxaban [Xarelto 10mg (*)] 20 mg PO DAILY #30 tab 06/19/18 Sertraline HCl [Zoloft 100mg (*)] 100 mg PO DAILY #30 tab 06/19/18 Medical Decision Making - Diagnostics Imaging Results: Imaging Impressions Head CT 06/30/18 16:10 Impression: No acute intracranial hemorrhage or calvarial fracture. Deon Laureano was notified of these findings by telephone at 4:51 PM 06/30/[address] 06/30/18 16:11 Impression: 1. Nothing acute in the abdomen and pelvis. 2. Soft tissue bruising and edema at the posterior right lower back and buttock region, without associated underlying fluid collection or mass or fracture. 3. Incidental chronic calcification along the left iliacus muscle, going down to the lesser trochanter. 4. Extensive degenerative change of the thoracic and lumbar spine. Findings and recommendations discussed with Dr. Deon Laureano at 4:50 p.m. on June 30, 2018. Final report concurs with initial preliminary interpretation. Cervical Spine CT 06/30/18 16:11 Impression: 1. No evidence of cervical spine fracture or subluxation. With persistent neurologic defects or pain, recommend MRI for further evaluation. Deon Laureano was notified of these findings by telephone at 4:51 PM 06/30/[address] 06/30/18 16:11 Impression: Nothing acute in the chest. Findings and recommendations discussed with Deon Laureano M.D., at 4:50 p.m. , on June 30, 2018. Final report concurs with initial preliminary interpretation. E:amm Lumbar Spine CT 06/30/18 16:11 Impression: 1. No evidence of lumbar spine fracture or subluxation. Deon Laureano was notified of these findings by telephone at 4:51 PM 06/30/[address] 06/30/18 16:11 Impression: 1. No evidence of thoracic spine fracture or subluxation. Deon Laureano was notified of these findings by telephone at 4:51 PM 06/30/2018 Imaging: Discussed imaging studies w/ inbound call center agent Radiologist, I viewed and interpreted images myself ED Course/Re-evaluation: CHIEF COMPLAINT: Unwitnessed fall, FTA HISTORY OF PRESENT ILLNESS: The patient is an anticoagulated (Eliquis) 72 y/o female with a history of CVA, diabetes, and hypertension arriving via EMS as a Full Trauma Alert after an unwitnessed fall. Per EMS the local fire department checked on this patient yesterday, [place] has a history of not caring for herself. During the welfare check yesterday, they noted that the patient had recently fallen but was not altered. She refused to go to the emergency department. Today the local fire department checked on the patient again and found her on the floor. It is unknown when she fell. Today the patient appeared altered and was unable to answer questions appropriately. While en route to the emergency department the patient had a blood pressure of 83/62 but her mentation improved mildly. This patient was admitted to this hospital on 05/31/18 for panniculitis and was discharged on 06/19/18. Per the hospitalist admission note the patient is on an anticoagulant for presumed atrial fibrillation and a CVA. At the time of her discharge it was recommended that this patient be placed in a SNF. REVIEW OF SYSTEMS: A 10 point review of systems was performed and is negative with the exception of the elements mentioned in the history of present illness. PHYSICAL EXAM: HR, BP, O2 Sat, RR. Temp noted General Appearance: Altered mentation. Smells of dirty urine. Toxic appearing. Head: Atraumatic without scalp tenderness or obvious injury Eyes: Pupils equal, round, reactive to light and accommodation, EOMI, no trauma , no injection. Ears: Clear bilaterally, no perforation, normal landmarks Nose: Atraumatic, no rhinorrhea, clear. Throat: There is no erythema or exudates, no lesions, normal tonsils, mucus membranes moist. Neck: Supple, 2+ carotid upstroke, nontender, no lymphadenopathy. Respiratory: No retractions, no distress, no wheezes, and no accessory muscle use. Lungs are clear to auscultation bilaterally. Cardiovascular: Regular rate and rhythm, no murmurs, rubs, or gallops. Bilateral carotid, radial, dorsalis pedis, and posterior tibial pulses intact. Good capillary refill all extremities. Gastrointestinal: Abdomen is soft, nontender, non-distended, no masses, no rebound, no guarding, no peritoneal signs. Musculoskeletal: Normal active ROM of all extremities, abrasion on left hand. Neurological: Not answering questions, alert to voice and will respond incoherently. The patient has normal DTRs and non-focal cranial nerves, motor, sensory, and cerebellar exam. Skin: Cool to the touch. Stage 1 and 2 decubitus ulcer on buttock and left hip. Fungus underneath her pannus. No rashes, good turgor, no nodules on palpation. Past medical history: CVA, hypertension, diabetes, obesity, DVT Past surgical history: Denies Family history: Denies Social history: Lives independently in [place], retired DIAGNOSTICS/PROCEDURES/CRITICAL CARE TIME: EKG: The 12 lead EKG was interpreted by myself as atrial fibrillation with a rate of 90. See hard copy and/or "tracemaster" electronic copy for interpretation. Head CT: No acute findings Cervical CT: No acute findings Chest CT: No acute findings Abdominopelvic CT: No acute findings Thoracic CT: No acute findings Lumbar CT: No acute findings Critical care time spent by me, Dr. Laureano, exclusively with this patient was 45 minutes, exclusive of PA time and exclusive of procedures. The organ system at risk was Z and I gave IVF, antibiotic, transferred the patient to the ICU to prevent worsening of the patients condition. DIFFERENTIAL DIAGNOSIS: The differential diagnosis for the patient's altered mental status included but was not limited to urosepsis, hypoglycemia, infectious process, electrolyte abnormality, head injury, neurologic process, anemia, cardiac process, and intoxicants. MEDICAL DECISION MAKING: The patient is an anticoagulated (Eliquis) 72 y/o female with a history of CVA, diabetes, and hypertension arriving via EMS as a Full Trauma Alert after an unwitnessed fall and altered mentation. On exam she is not answering my questions but is alert to my voice and will respond incoherently. She smells like dirty urine and is cool to the touch. Labs and extensive CT imaging ordered. 1606: Dr. Watson, general surgeon, is in the emergency department. 1618: I reviewed patient's EKG as atrial fibrillation with a rate of 90. 1633: Patient's [place] temperature is 29 degrees; ThermaGard will be placed. 1637: Patient has returned from CT. I reviewed her labs: her creatinine is 0.5, BUN is 28, and potassium is 2.7. This patient is still a full trauma as her core temperature is 29 degrees. 20mg IV Potassium administered. 1641: I consulted with Dr. Watson, regarding patient's temperature. He is comfortable with placing the ThermaGard 1643: Patient's BP is 69/48 and her heart rate is 75. 1647: I reviewed patient's urine, she has urosepsis. 1gm IV Ceftriaxone and 3L IV LR administered. 1648: Patient has poor vessel access and groin fungus; she is not a candidate for the ThermaGard and the risk outweighs the benefits. We will warm her using traditional methods with passive warming. Her mentation is improving. She is also not a good candidate for a central line as she is on atrial fibrillation. 1653: Patient's core temperature continues to improve after being seen by me and Dr. Watson. She is downgraded from a full trauma as her temperature is above the trauma cut off. The patient is hypotensive from her urosepsis and not from the trauma. 1655: I spoke with the radiologist who reports that there are no acute finding' s on the patient's CT imaging. 1657: Patient is in severe sepsis as her MAP is 61. Additional labs still pending. 1707: I consulted with the hospitalist service, Dr. Jha accepts admission of this patient. 1732: Patient's lactate is 2.1; she is in severe sepsis. We will determine if she is in shock after receiving 3L LR. 1805: Patient's MAP is still less than 65 intermittently after fluid resuscitation. She is in septic shock but her mentation is improving. 1817: Patient's pressure has improved to a systolic over 80. She is safe to be transferred to the unit. - Data Points Laboratory Results: Laboratory Results 06/30/18 16:10 06/30/18 16:10 06/30/18 06/30/18 06/30/18 16:49 16:15 16:13 WBC RBC Hgb POC Hgb Hct POC Hct MCV MCH MCHC RDW Plt Count MPV Neut % (Auto) Lymph % (Auto) [place] % (Auto) Eos % (Auto) Baso % (Auto) Nucleat RBC Rel Count Absolute Neuts (auto) Absolute Lymphs (auto) Absolute Monos (auto) Absolute Eos (auto) Absolute Basos (auto) Absolute Nucleated RBC Immature Gran % Immature Gran # PT INR APTT VBG Lactic Acid 2.1 mmol/L mmol/L (0.7-2.1) POC Sodium Sodium POC Potassium Potassium POC Chloride Chloride Carbon Dioxide Anion Gap POC BUN BUN Creatinine POC Creatinine Estimated GFR Glucose POC Glucose Calcium Creatine Kinase CK-MB (CK-2) Fraction CK-MB (CK-2) % Creatine Kinase Interp POC Troponin I 0.01 ng/mL ng/mL (0.00-0.08) Urine Color YELLOW Urine Appearance MODERATELY TURBID Urine pH 5.0 (5.0-7.5) Ur Specific [place] 1.020 (1.002-1.030) Urine Protein 1+ H (NEGATIVE) Urine Ketones 1+ H (NEGATIVE) Urine Blood 1+ H (NEGATIVE) Urine Nitrate NEGATIVE (NEGATIVE) Urine Bilirubin NEGATIVE (NEGATIVE) Urine Urobilinogen 2.0 EU H EU (0.2-1.0) Ur Leukocyte Esterase 2+ H (NEGATIVE) Urine RBC 10-15 /hpf H /hpf (0-3) Urine WBC 50-182 /hpf H /hpf (0-3) Ur Epithelial Cells TRACE /lpf /lpf (NONE-1+) Urine Bacteria 4+ /hpf H /hpf (NONE SEEN) Hyaline Casts 25-50 /lpf H /lpf (0-1) Urine Mucus 2+ /lpf H /lpf (NONE-1+) Urine Glucose NEGATIVE (NEGATIVE) 06/30/18 06/30/18 06/30/18 16:13 16:10 16:10 WBC RBC Hgb POC Hgb 15.6 gm/dL gm/dL (12.6-16.3) Hct POC Hct 46 % % (38-47) MCV MCH MCHC RDW Plt Count MPV Neut % (Auto) Lymph % (Auto) [place] % (Auto) Eos % (Auto) Baso % (Auto) Nucleat RBC Rel Count Absolute Neuts (auto) Absolute Lymphs (auto) Absolute Monos (auto) Absolute Eos (auto) Absolute Basos (auto) Absolute Nucleated RBC Immature Gran % Immature Gran # PT INR APTT VBG Lactic Acid POC Sodium 150 mEq/L H mEq/L (135-145) Sodium 144 mEq/L mEq/L (135-145) POC Potassium 2.9 mEq/L L mEq/L (3.3-5.0) Potassium 2.7 mEq/L L* mEq/L (3.5-5.2) POC Chloride 111 mEq/L H mEq/L (97-110) Chloride 112 mEq/L H mEq/L (97-110) Carbon Dioxide 20 mEq/l L mEq/l (22-31) Anion Gap 12 mEq/L mEq/L (6-14) POC BUN 28 mg/dL H mg/dL (7-23) BUN 30 mg/dL H mg/dL (7-23) Creatinine 0.6 mg/dL mg/dL (0.6-1.0) POC Creatinine 0.5 mg/dL L mg/dL (0.6-1.0) Estimated GFR > 60 Glucose 129 mg/dL H mg/dL (70-100) POC Glucose 130 mg/dL H mg/dL (70-100) Calcium 8.3 mg/dL L mg/dL (8.5-10.4) Creatine Kinase 599 IU/L H IU/L (0-156) CK-MB (CK-2) Fraction Pending CK-MB (CK-2) % Pending Creatine Kinase Interp Pending POC Troponin I Urine Color Urine Appearance Urine pH Ur Specific [place] Urine Protein Urine Ketones Urine Blood Urine Nitrate Urine Bilirubin Urine Urobilinogen Ur Leukocyte Esterase Urine RBC Urine WBC Ur Epithelial Cells Urine Bacteria Hyaline Casts Urine Mucus Urine Glucose 06/30/18 06/30/18 16:10 16:10 WBC 10.37 10^3/uL H 10^3/uL (3.80-9.50) RBC 5.15 10^6/uL 10^6/uL (4.18-5.33) Hgb 15.0 g/dL g/dL (12.6-16.3) POC Hgb Hct 46.8 % % (38.0-47.0) POC Hct MCV 90.9 fL fL (81.5-99.8) MCH 29.1 pg pg (27.9-34.1) MCHC 32.1 g/dL L g/dL (32.4-36.7) RDW 13.0 % % (11.5-15.2) Plt Count 198 10^3/uL 10^3/uL (150-400) MPV 9.7 fL fL (8.7-11.7) Neut % (Auto) 88.6 % H % (39.3-74.2) Lymph % (Auto) 6.7 % L % (15.0-45.0) [place] % (Auto) 4.1 % L % (4.5-13.0) Eos % (Auto) 0.0 % L % (0.6-7.6) Baso % (Auto) 0.2 % L % (0.3-1.7) Nucleat RBC Rel Count 0.0 % % (0.0-0.2) Absolute Neuts (auto) 9.20 10^3/uL H 10^3/uL (1.70-6.50) Absolute Lymphs (auto) 0.69 10^3/uL L 10^3/uL (1.00-3.00) Absolute Monos (auto) 0.42 10^3/uL 10^3/uL (0.30-0.80) Absolute Eos (auto) 0.00 10^3/uL L 10^3/uL (0.03-0.40) Absolute Basos (auto) 0.02 10^3/uL 10^3/uL (0.02-0.10) Absolute Nucleated RBC 0.00 10^3/uL 10^3/uL (0-0.01) Immature Gran % 0.4 % % (0.0-1.1) Immature Gran # 0.04 10^3/uL 10^3/uL (0.00-0.10) PT 20.5 SEC H SEC (12.0-15.0) INR 1.75 H (0.83-1.16) APTT 33.2 SEC SEC (23.0-38.0) VBG Lactic Acid POC Sodium Sodium POC Potassium Potassium POC Chloride Chloride Carbon Dioxide Anion Gap POC BUN BUN Creatinine POC Creatinine Estimated GFR Glucose POC Glucose Calcium Creatine Kinase CK-MB (CK-2) Fraction CK-MB (CK-2) % Creatine Kinase Interp POC Troponin I Urine Color Urine Appearance Urine pH Ur Specific [place] Urine Protein Urine Ketones Urine Blood Urine Nitrate Urine Bilirubin Urine Urobilinogen Ur Leukocyte Esterase Urine RBC Urine WBC Ur Epithelial Cells Urine Bacteria Hyaline Casts Urine Mucus Urine Glucose Medications Given: Discontinued Medications Lactated Ringer's (Lr) 3,000 mls @ 6,000 mls/hr 30 ml/kg infuse over 30 min ( 3000 ml) IV EDNOW ONE PRN Reason: Protocol Stop: 06/30/18 17:38 Last Admin: 06/30/18 17:09 Dose: 3,000 mls Ceftriaxone Sodium/Dextrose (Rocephin 1 Gm (Premix)) 50 mls @ 100 mls/hr IV EDNOW ONE PRN Reason: Protocol Stop: 06/30/18 17:43 Last Admin: 06/30/18 17:14 Dose: 50 mls Point of Care Test Results: Chemistry 06/30/18 06/30/18 16:13 16:13 POC Sodium 150 mEq/L H mEq/L (135-145) POC Potassium 2.9 mEq/L L mEq/L (3.3-5.0) POC Chloride 111 mEq/L H mEq/L (97-110) POC BUN 28 mg/dL H mg/dL (7-23) POC Creatinine 0.5 mg/dL L mg/dL (0.6-1.0) POC Glucose 130 mg/dL H mg/dL (70-100) POC Troponin I 0.01 ng/mL ng/mL (0.00-0.08) ISTAT H&H 06/30/18 16:13 POC Hgb 15.6 gm/dL gm/dL (12.6-16.3) POC Hct 46 % % (38-47) Departure - Departure Disposition: [facility] Inpatient Acute Clinical Impression: Sepsis due to urinary tract infection, Septic shock Hypothermia Qualifiers: Encounter type: initial encounter Qualified Code(s): T68.XXXA - Hypothermia, initial encounter Hypotension Qualifiers: Hypotension type: other hypotension type Qualified Code(s): I95.89 - Other hypotension Condition: Serious Referrals: Mast,Aric, DO [Primary Care Provider] - As per Instructions Report Scribed for: Deon Laureano Report Scribed by: Debbie Chu Date of Report: 06/30/18 Time of Report: 16:02
[2018-06-30 16:27] LABS: PLATELET COUNT 198 10^3/uL (150-400)
[2018-06-30 16:42] LABS: INR 1.75 (0.83-1.16); PROTIME(PATIENT) 20.5 SEC (12.0-15.0)
[2018-06-30] MEDS ORDERED: LR 3,000 ML IV ONE (17:09)
[2018-06-30 17:52] LABS: CREATINE KINASE 599 IU/L (0-156)
[2018-06-30] MEDS ORDERED: IOPAMIDOL (ISOVUE-300) 100 ML BTL ONE (18:59)
--- NOTE | 2018-06-30 19:34 | PDGENHP ---
History and Physical - Chief Complaint found down - History of Present Illness 72yo morbidly obese F with history of htn, diabetes, stroke on eliquis presents to ED after being found down. She was recently hospitalized 05/31-06/19 for panniculitis. She received a course of antibiotics and antifungals with improvement. Therapy services had recommended SNF but there was no payor source so she was discharged home with home care. Per EMS, the local fire department checked in on her yesterday, as [place] and has a history of not caring for herself. During welfare check yesterday, EMS noted that she had fallen recently but was not altered. She refused to go in for evaluation then. Today, the local fire department checked in again and found her on the floor unresponsive. She was altered upon presentation to the ED and severely hypothermic (T 29C) and hypotensive (70/40s) , meeting septic shock criteria. Dr Watson was called to place a central line vs warming catheter however it was felt that the risks of placement (anticoagulated , signs of infection over placement sites in groin) outweighed benefits so this was not done. In the ED, she was administered IV fluids and warmed. Her BP responded slightly to SBP in the 80s. She was mentating slightly better and responding intermittently to questions when I interviewed her. She denies pain, shortness of breath, chest pain. She doesn't remember what happened. History Information - Allergies/Home Medication List Allergies/Adverse Reactions: levofloxacin Allergy (Unknown, Verified 05/31/18 14:53) Other-Enter Comments Penicillins Allergy (Verified 05/31/18 14:53) Other-Enter Comments Home Medications: Gabapentin [Neurontin 300 MG (*)] 300 mg PO HS 12/16/17 [Last Taken 12/15/17] Insulin Glargine [Lantus] 22 unit SC HS 05/31/18 [Last Taken Unknown] LORazepam [Ativan (*)] 0.5 mg PO BID PRN 05/31/18 [Last Taken Unknown] Losartan/Hydrochlorothiazide [Losartan-Hctz 100-12.5 mg Tab] 1 each PO DAILY [Last Taken Unknown] Nystatin Powder [Mycostatin Powder] 1 marleny TOP DAILY 05/31/18 [Last Taken Unknown ] traMADol [Ultram 50 mg (*)] 50 mg PO Q4HRS PRN 06/01/18 [Last Taken Unknown] I have personally reviewed and updated: family history, medical history, social history, surgical history - Past Medical History Additional medical history: CVA, type 2 diabetes, HTN, HLD, morbid obesity - Surgical History Reports: no pertinent surgical hx - Family History Positive for: non-pertinent - Social History Smoking Status: Never smoked Additional social history: lives alone in cabin in [place] Review of Systems Review of Systems: ROS: 10pt was reviewed & negative except for what was stated in HPI & below Physical Exam Physical Exam: Temp Pulse Resp BP Pulse Ox 32.6 C L 90 18 69/46 L 100 06/30/18 19:17 06/30/18 19:17 06/30/18 19:17 06/30/18 19:17 06/30/18 19:17 O2 (L/minute) 2 Constitutional: no apparent distress, obese Eyes: PERRL, anicteric sclera, EOMI Ears, Nose, Mouth, Throat: dry mucous membranes Cardiovascular: irregularly irregular, No no murmur, rub, or gallop, No JVD, No edema Respiratory: other (clear anterolaterally), No expiratory wheeze Gastrointestinal: normoactive bowel sounds, soft, non-tender abdomen, no palpable masses Genitourinary: no bladder fullness, no bladder tenderness, lopez in urethra Skin: other (severe erythema under pannus with skin breakdown) Neurologic: other (moving extremities, opening eyes to verbal stimuli, occasionally responding yes/no) Psychiatric: encephalopathic Lab Data & Imaging Review 06/30/18 16:10 06/30/18 16:10 WBC 10.37 10^3/uL (3.80-9.50) H 06/30/18 16:10 RBC 5.15 10^6/uL (4.18-5.33) 06/30/18 16:10 Hgb 15.0 g/dL (12.6-16.3) 06/30/18 16:10 POC Hgb 15.6 gm/dL (12.6-16.3) 06/30/18 16:13 Hct 46.8 % (38.0-47.0) 06/30/18 16:10 POC Hct 46 % (38-47) 06/30/18 16:13 MCV 90.9 fL (81.5-99.8) 06/30/18 16:10 MCH 29.1 pg (27.9-34.1) 06/30/18 16:10 MCHC 32.1 g/dL (32.4-36.7) L 06/30/18 16:10 RDW 13.0 % (11.5-15.2) 06/30/18 16:10 Plt Count 198 10^3/uL (150-400) 06/30/18 16:10 MPV 9.7 fL (8.7-11.7) 06/30/18 16:10 Neut % (Auto) 88.6 % (39.3-74.2) H 06/30/18 16:10 Lymph % (Auto) 6.7 % (15.0-45.0) L 06/30/18 16:10 [place] % (Auto) 4.1 % (4.5-13.0) L 06/30/18 16:10 Eos % (Auto) 0.0 % (0.6-7.6) L 06/30/18 16:10 Baso % (Auto) 0.2 % (0.3-1.7) L 06/30/18 16:10 Nucleat RBC Rel Count 0.0 % (0.0-0.2) 06/30/18 16:10 Absolute Neuts (auto) 9.20 10^3/uL (1.70-6.50) H 06/30/18 16:10 Absolute Lymphs (auto) 0.69 10^3/uL (1.00-3.00) L 06/30/18 16:10 Absolute Monos (auto) 0.42 10^3/uL (0.30-0.80) 06/30/18 16:10 Absolute Eos (auto) 0.00 10^3/uL (0.03-0.40) L 06/30/18 16:10 Absolute Basos (auto) 0.02 10^3/uL (0.02-0.10) 06/30/18 16:10 Absolute Nucleated RBC 0.00 10^3/uL (0-0.01) 06/30/18 16:10 Immature Gran % 0.4 % (0.0-1.1) 06/30/18 16:10 Immature Gran # 0.04 10^3/uL (0.00-0.10) 06/30/18 16:10 PT 20.5 SEC (12.0-15.0) H 06/30/18 16:10 INR 1.75 (0.83-1.16) H 06/30/18 16:10 APTT 33.2 SEC (23.0-38.0) 06/30/18 16:10 VBG Lactic Acid 2.1 mmol/L (0.7-2.1) 06/30/18 16:49 POC Sodium 150 mEq/L (135-145) H 06/30/18 16:13 Sodium 144 mEq/L (135-145) 06/30/18 16:10 POC Potassium 2.9 mEq/L (3.3-5.0) L 06/30/18 16:13 Potassium 2.7 mEq/L (3.5-5.2) L* 06/30/18 16:10 POC Chloride 111 mEq/L (97-110) H 06/30/18 16:13 Chloride 112 mEq/L (97-110) H 06/30/18 16:10 Carbon Dioxide 20 mEq/l (22-31) L 06/30/18 16:10 Anion Gap 12 mEq/L (6-14) 06/30/18 16:10 POC BUN 28 mg/dL (7-23) H 06/30/18 16:13 BUN 30 mg/dL (7-23) H 06/30/18 16:10 Creatinine 0.6 mg/dL (0.6-1.0) 06/30/18 16:10 POC Creatinine 0.5 mg/dL (0.6-1.0) L 06/30/18 16:13 Estimated GFR > 60 06/30/18 16:10 Glucose 129 mg/dL (70-100) H 06/30/18 16:10 POC Glucose 130 mg/dL (70-100) H 06/30/18 16:13 Calcium 8.3 mg/dL (8.5-10.4) L 06/30/18 16:10 Creatine Kinase 599 IU/L (0-156) H 06/30/18 16:10 CK-MB (CK-2) Fraction 24.90 ng/mL (0.00-4.55) H 06/30/18 16:10 CK-MB (CK-2) % 4.2 % (0.0-4.0) H 06/30/18 16:10 Creatine Kinase Interp POSITIVE (NEGATIVE) H 06/30/18 16:10 POC Troponin I 0.01 ng/mL (0.00-0.08) 06/30/18 16:13 Urine Color YELLOW 06/30/18 16:15 Urine Appearance MODERATELY TURBID 06/30/18 16:15 Urine pH 5.0 (5.0-7.5) 06/30/18 16:15 Ur Specific [place] 1.020 (1.002-1.030) 06/30/18 16:15 Urine Protein 1+ (NEGATIVE) H 06/30/18 16:15 Urine Ketones 1+ (NEGATIVE) H 06/30/18 16:15 Urine Blood 1+ (NEGATIVE) H 06/30/18 16:15 Urine Nitrate NEGATIVE (NEGATIVE) 06/30/18 16:15 Urine Bilirubin NEGATIVE (NEGATIVE) 06/30/18 16:15 Urine Urobilinogen 2.0 EU (0.2-1.0) H 06/30/18 16:15 Ur Leukocyte Esterase 2+ (NEGATIVE) H 06/30/18 16:15 Urine RBC 10-15 /hpf (0-3) H 06/30/18 16:15 Urine WBC 50-182 /hpf (0-3) H 06/30/18 16:15 Ur Epithelial Cells TRACE /lpf (NONE-1+) 06/30/18 16:15 Urine Bacteria 4+ /hpf (NONE SEEN) H 06/30/18 16:15 Hyaline Casts 25-50 /lpf (0-1) H 06/30/18 16:15 Urine Mucus 2+ /lpf (NONE-1+) H 06/30/18 16:15 Urine Glucose NEGATIVE (NEGATIVE) 06/30/18 16:15 Visualized and Interpreted EKG results: Yes EKG additional interpertation: ECG: atrial fibrillation with controlled rates, incomplete left bundle branch block (new from prior), no ischemic ST-T wave changes Assessment & Plan Assessment: 72yo morbidly obese F with history of htn, diabetes, stroke on eliquis presents to ED after being found down. She is meeting septic shock criteria and is being admitted to the ICU for further management. Plan: 1. Septic shock: Initially responding to isotonic fluids. Source of infection likely urinary vs skin/soft tissue (panniculitis). She also likely has an element of vasoplegia related to her hypothermia. 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 - Follow blood/urine cultures - Broad spectrum antimicrobials: vancomycin, cefepime, fluconazole - Rewarming - Continue IVF. If not responding, central line will need to be placed and start vasopressors 2. Intertriginous sharif: IV antifungals as above. Wound care. 3. Acute metabolic encephalopathy: Suspect related to infection/hypotension. - Managing as above, avoid centrally acting meds - Check carboxyhemoglobin levels (lives in cabin in [facility]) 4. Hypothermia: Due to being found down in cabin. Rewarming. 5. Hypokalemia: Replete and place on protocol. 6. Atrial fibrillation: Rate controlled on admit. Continue eliquis. 7. HTN: Holding home antihypertensives. 8. Diabetes: Resume long-acting insulin at half dose. Place on SSI with regular BG checks. 9. H/o lacunar CVA: Continue eliquis. 10. Morbid obesity: Complicated by gait instability and failure to thrive. - Going home may not be best option. Involve case management VTE ppx: therapeutic anticoagulation Code: full Diet: NPO GI ppx: H2RA Dispo: Admit as inpatient to ICU. I spent a total of 45 minutes of critical care time with this patient.
[2018-06-30] MEDS ORDERED: PROTOCOL POTASSIUM 1 DOSE MISC PRN (19:47)
[2018-06-30] MEDS ORDERED: D50W 25 GM/50 ML SYR IVP PRN (19:48)
[2018-06-30] MEDS ORDERED: FLUCONAZOLE/NaCl 200 ML IV SCH (20:00)
--- NOTE | 2018-06-30 20:25 | GCON ---
REASON FOR EVALUATION: Trauma activation. HISTORY OF PRESENT ILLNESS: 72-year-old female who lives independently in [place] , who has sustained multiple recent falls at home and had recently been recommended to be relocated to a SNF unit. She had been seen on a welfare check per record discussion with subsequent providers and reassessed today. She was found down by the fire department and initially not able to answer questions appropriately with a blood pressure of 80/60. She was brought to the [facility] as a full trauma activation. Initial ED assessment showed evidence of concerns for urosepsis and hypothermia without further signs of trauma for which she was ultimately downgraded. Surgery was later requested for a Thermoguard catheter insertion given the patient's initial temperature of 29 degrees Celsius. The patient was responsive to my questioning without any specific complaints of head or neck pain, chest pain, shortness of breath, abdominal complaints, or extremity complaints. PAST MEDICAL HISTORY: CVA, hypertension, diabetes, history of DVT, obesity, and atrial fibrillation. PAST SURGICAL HISTORY: Denies. MEDICATIONS: Gabapentin, Lantus, Ativan, losartan, hydrochlorothiazide, Mycostatin powder, tramadol, Diflucan, Xarelto, and Zoloft. ALLERGIES: No known drug allergies. SOCIAL HISTORY: No known history of alcohol abuse. VITAL SIGNS: Initial Vital Signs: Temperature 29, heart rate 105, respirations 20, and blood pressure 74/55. Subsequent Vital Signs: Blood pressure 80/70, pulse 90, respirations 18, and temperature up to 31.4. PHYSICAL EXAM: HEENT: Pupils are equally round, and reactive to light and accommodation. Extraocular muscles are intact. Scalp is atraumatic. NECK: Nontender. HEART: Regular. LUNGS: Clear. ABDOMEN: Soft and nontender. CHEST WALL: Nontender without step-offs or deformities. PELVIS: Nontender. EXTREMITIES: Normal bilateral upper and lower extremities with no skin mottling or external signs of trauma. SKIN: Extensive intertriginous candidiasis beneath her large overhanging pannus. GENITOURINARY: Fetid smelling urine. SPINE: Thoracic and lumbar spines without evidence of trauma. Sacral decubitus present, grade 1/2. LABORATORY DATA: White count 10, hemoglobin 15, and platelets of 200. INR 1.75. Lactate 2.1. Sodium 150, potassium 2.9, chloride 111, CO2 of 20, BUN 28 , creatinine 0.6, and glucose 129. CK is 600 and troponin negligible. Urinalysis with 50 to 180 white cells, 10 to 15 red cells, and trace epithelial cells. IMPRESSIONS: 1. Urosepsis. 2. Hypothermia. 3. Socially unsafe at home. 4. Intertriginous candidiasis. PLAN: The patient was seen and evaluated with Dr. Laureano at bedside. Patient without evidence of any traumatic injuries. We discussed Thermoguard catheter placement given the patient's initial hypotension. Given her hostile groins, catheter placement was not feasible. Neck catheters were not felt appropriate either given the patient's hypothermia and novel oral anticoagulant medications. Plan will be to continue with passive warming measures with a Christianne Hugger, warming IV fluids, warming lights, and warm Calle fluid. This was rapidly successful without further ado. The patient will be admitted by the medical service for further evaluation and management for her urosepsis without evidence of trauma. Please call if we can be of further assistance. /[id number]/MODL MTDD
[2018-06-30] MEDS ORDERED: LR 1,000 ML IV ONE (20:57)
[2018-06-30] MEDS: VANCOMYCIN 1.25 GM in NS 250 ML IV SCH (21:00)
[2018-06-30] MEDS ORDERED: INSULIN GLARGINE 100 UNITS/ML UNIT SC SCH (21:00)
[2018-06-30] MEDS: NS W/ 20 KCl/L 1,000 ML IV SCH (21:00)
[2018-06-30] MEDS ORDERED: NYSTATIN POWDER 15 GM BTL TP SCH (22:00)
--- NOTE | 2018-06-30 22:44 | CPEKG ---
Test Reason : OPEN Blood Pressure : / mmHG Vent. Rate : 090 BPM Atrial Rate : 149 BPM P-R Int : 061 ms QRS Dur : 111 ms QT Int : 478 ms P-R-T Axes : 000 044 265 degrees QTc Int : 585 ms Atrial fibrillation Incomplete left bundle branch block Prolonged QT interval Confirmed by Deon Laureano ([id number]) on 06/30/2018 10:44:34 PM Referred By: Confirmed By:Deon Laureano
[2018-06-30] MEDS: CEFEPIME HCL 2 GM in NS 100 ML IV SCH (22:47)
[2018-06-30] MEDS: NYSTATIN POWDER 15 GM BTL TP SCH (22:49)
[2018-06-30] MEDS: POTASSIUM Cl (KCl) 100 ML IV SCH (22:53)
[2018-06-30] MEDS: FAMOTIDINE 20 MG TAB PO SCH (22:53)
[2018-06-30] MEDS ORDERED: NOREPINEPHRINE BITARTRATE 4 MG in D5W 500 ML IV SCH (23:30)
[2018-07-01] MEDS: MIDODRINE HCL 5 MG TAB PO SCH ×6 (00:11→17:45)
[2018-07-01] MEDS: NOREPINEPHRINE BITARTRATE 4 MG in NS 500 ML IV SCH ×2 (00:16→12:53)
[2018-07-01] MEDS: POTASSIUM Cl (KCl) 100 ML IV SCH ×6 (01:00→22:48)
[2018-07-01] MEDS: NS W/ 20 KCl/L 1,000 ML IV SCH (04:30)
[2018-07-01 05:27] LABS: PLATELET COUNT 223 10^3/uL (150-400)
[2018-07-01] MEDS: CEFEPIME HCL 2 GM in NS 100 ML IV SCH ×2 (05:37→18:45)
[2018-07-01] MEDS ORDERED: ALTEPLASE 2 MG VIAL IVP PRN (07:28)
[2018-07-01] MEDS: INSULIN LISPRO 100 UNIT/ML SC SCH ×3 (08:20→19:37)
[2018-07-01] MEDS ORDERED: ENOXAPARIN 40 MG/0.4 ML SYR SC SCH (09:00)
[2018-07-01] MEDS: ENOXAPARIN 40 MG/0.4 ML SYR SC SCH (09:40)
[2018-07-01] MEDS: FAMOTIDINE 20 MG TAB PO SCH ×3 (09:41→22:47)
[2018-07-01] MEDS: VANCOMYCIN 1.25 GM in NS 250 ML IV SCH ×2 (09:41→22:47)
--- NOTE | 2018-07-01 09:49 | HOSPPROG ---
Hospitalist Progress Note Assessment/Plan: #Septic shock: wean pressors as tolerated +UA. Blood, urine and wound cultures pending. CT chest and abdomen unrevealing -appreciate ID consult. Cont broad-abx. #Acute metabolic encephalopathy -due to acute illness. CTH negative #Candidia intertrigo: change to Micafungin with prolonged Qtc #Prolonged Qtc: telemetry, stop fluconazole and Zofran #Hypothermia: warmed overnight #Morbid obesity #Hypokalemia: replete #Atrial fibrillation (EKG personally reviewed by me). On ppx Lovenox. Restart Eliquis tomorrow if clinically improved #h/o lacunar CVA: CTH stable #DM2: hold Lantus with low sugars, SSI if needed #DVT ppx: Lovenox #Social: per EMS, house is very unsafe. Do not recommend discharge back home given inability to care for self and recurrent hospitalizations. CM to assist when clinically improved Critical care time spent: >35 min bedside, reviewing records, d/w Dr. Toth Subjective: warmed Objective: Vital Signs Temp Pulse Resp BP Pulse Ox 37.8 C 107 H 26 H 130/52 H 97 07/01/18 09:00 07/01/18 09:00 07/01/18 09:00 07/01/18 09:00 07/01/18 09:00 Laboratory Results 07/01/18 04:10 07/01/18 04:10 06/30/18 07/01/18 07/02/18 05:59 05:59 05:59 Intake Total 1200 Output Total 300 Balance 900 PT 20.5 SEC (12.0-15.0) H 06/30/18 16:10 INR 1.75 (0.83-1.16) H 06/30/18 16:10 - Time Spent With Patient Time Spent with Patient: greater than 35 minutes Time Spent with Patient: Greater than 35 minutes spent on this patients care, greater than 50% of time spent counseling, educating, and coordinating care regarding the above mentioned plan. - Physical Exam Constitutional: obese, other (ill-appearing) Eyes: other (periorbital swelling) Ears, Nose, Mouth, Throat: dry mucous membranes Cardiovascular: systolic murmur, tachycardia, edema (edema hands/feet) Respiratory: no respiratory distress Gastrointestinal: other (obsese), No tenderness, No ascites Genitourinary: lopez in urethra Skin: other (significant erythema and maceration under pannus. Hands/feet very erythematous) Neurologic: other (alert only to place), No facial droop Psychiatric: encephalopathic ICD10 Worksheet Patient Problems: Problems Problem Status Onset Frequent falls Acute Dehydration Acute Contusion of right hip Acute Cellulitis Acute Urinary tract infection Acute Hypothermia Acute Sepsis due to urinary tract infection Acute Septic shock Acute Hypotension Acute
[2018-07-01] MEDS: NYSTATIN POWDER 15 GM BTL TP SCH ×3 (09:51→22:53)
--- NOTE | 2018-07-01 09:54 | PDMN ---
Medical Necessity Medical necessity: [facility] S160 Sepsis: 72 yo found unresponsive, in septic shock with severe hypothermia (29C) and hypotensive SBP 70s, r/t UTI vs. skin infection. Sepsis protocol started w/ IVF, IV antibx, Norepi to maintain BP. Meets [facility] IP criteria for sepsis w/ hemodynamic instability, temp<35C, AMS, admit to ICU.
--- NOTE | 2018-07-01 10:32 | PDGENHP ---
History and Physical - Chief Complaint found down - History of Present Illness 72-year-old morbidly obese female with multiple medical problems including AFib on Eliquis and inability she to take care of herself with multiple well visits as well as admissions. She was last hospitalized for 2 weeks early June for panniculitis. At that time she received antibiotics and antifungals. She was recommended to be discharged to a nursing facility however there is no pair source and was discharged home with home care. Just prior to this admission EMS was called by the fire department after they did a walk well check at her home in [place] and was found down and hypothermic 29 degrees as well as hypotensive 70s over 40s. She was initially fluid resuscitated passively rewarming. Her blood pressure did not come minute and peripheral Levophed was started. She was also started on broad-spectrum antibiotics. She is unable to provide a meaningful history at this point due to encephalopathy. She had CT head thorax abdomen that was negative for acute infection bleed or pneumothorax. History Information - Allergies/Home Medication List Allergies/Adverse Reactions: levofloxacin Allergy (Unknown, Verified 05/31/18 14:53) Other-Enter Comments Penicillins Allergy (Verified 05/31/18 14:53) Other-Enter Comments Home Medications: Gabapentin [Neurontin 300 MG (*)] 300 mg PO HS 12/16/17 [Last Taken 12/15/17] Insulin Glargine [Lantus] 22 unit SC HS 05/31/18 [Last Taken Unknown] LORazepam [Ativan (*)] 0.5 mg PO BID PRN 05/31/18 [Last Taken Unknown] Losartan/Hydrochlorothiazide [Losartan-Hctz 100-12.5 mg Tab] 1 each PO DAILY [Last Taken Unknown] Nystatin Powder [Mycostatin Powder] 1 marleny TOP DAILY 05/31/18 [Last Taken Unknown ] traMADol [Ultram 50 mg (*)] 50 mg PO Q4HRS PRN 06/01/18 [Last Taken Unknown] I have personally reviewed and updated: family history, medical history, social history, surgical history - Past Medical History CVA, diabetes type 2, hypertension, hyperlipidemia Additional medical history: CVA, type 2 diabetes, HTN, HLD, morbid obesity - Surgical History Reports: no pertinent surgical hx - Family History Positive for: non-pertinent Additional family history: htn - Social History Smoking Status: Never smoked Additional social history: lives alone in cabin in [place] Review of Systems Review of Systems: unable to be obtained Physical Exam Physical Exam: Temp Pulse Resp BP Pulse Ox 37.8 C 107 H 26 H 130/52 H 97 07/01/18 09:00 07/01/18 09:00 07/01/18 09:00 07/01/18 09:00 07/01/18 09:00 O2 (L/minute) 3 Constitutional: obese, unkempt Eyes: PERRL, anicteric sclera Cardiovascular: regular rate and rhythym, no murmur, rub, or gallop Respiratory: no respiratory distress, no rales or rhonchi Gastrointestinal: normoactive bowel sounds, soft, non-tender abdomen Skin: warm, rash, other (PNS with funmilayo infection.) Neurologic: other (Somnolent, delirious by CAM assessment, no focal deficit) Psychiatric: other Lab Data & Imaging Review 07/01/18 04:10 07/01/18 13:05 WBC 14.93 10^3/uL (3.80-9.50) H 07/01/18 04:10 RBC 3.94 10^6/uL (4.18-5.33) L 07/01/18 04:10 Hgb 11.8 g/dL (12.6-16.3) L 07/01/18 04:10 POC Hgb 15.6 gm/dL (12.6-16.3) 06/30/18 16:13 Hct 36.0 % (38.0-47.0) L 07/01/18 04:10 POC Hct 46 % (38-47) 06/30/18 16:13 MCV 91.4 fL (81.5-99.8) 07/01/18 04:10 MCH 29.9 pg (27.9-34.1) 07/01/18 04:10 MCHC 32.8 g/dL (32.4-36.7) 07/01/18 04:10 RDW 13.1 % (11.5-15.2) 07/01/18 04:10 Plt Count 223 10^3/uL (150-400) 07/01/18 04:10 MPV 10.1 fL (8.7-11.7) 07/01/18 04:10 Neut % (Auto) 83.7 % (39.3-74.2) H 07/01/18 04:10 Lymph % (Auto) 6.6 % (15.0-45.0) L 07/01/18 04:10 Ford % (Auto) 8.9 % (4.5-13.0) 07/01/18 04:10 Eos % (Auto) 0.1 % (0.6-7.6) L 07/01/18 04:10 Baso % (Auto) 0.2 % (0.3-1.7) L 07/01/18 04:10 Nucleat RBC Rel Count 0.0 % (0.0-0.2) 07/01/18 04:10 Absolute Neuts (auto) 12.50 10^3/uL (1.70-6.50) H 07/01/18 04:10 Absolute Lymphs (auto) 0.99 10^3/uL (1.00-3.00) L 07/01/18 04:10 Absolute Monos (auto) 1.33 10^3/uL (0.30-0.80) H 07/01/18 04:10 Absolute Eos (auto) 0.01 10^3/uL (0.03-0.40) L 07/01/18 04:10 Absolute Basos (auto) 0.03 10^3/uL (0.02-0.10) 07/01/18 04:10 Absolute Nucleated RBC 0.00 10^3/uL (0-0.01) 07/01/18 04:10 Immature Gran % 0.5 % (0.0-1.1) 07/01/18 04:10 Immature Gran # 0.07 10^3/uL (0.00-0.10) 07/01/18 04:10 PT 20.5 SEC (12.0-15.0) H 06/30/18 16:10 INR 1.75 (0.83-1.16) H 06/30/18 16:10 APTT 33.2 SEC (23.0-38.0) 06/30/18 16:10 VBG Lactic Acid 1.9 mmol/L (0.7-2.1) 06/30/18 21:20 Carboxyhemoglobin 1.0 % (0-1.5) 06/30/18 16:20 POC Sodium 150 mEq/L (135-145) H 06/30/18 16:13 Sodium 145 mEq/L (135-145) 07/01/18 04:10 POC Potassium 2.9 mEq/L (3.3-5.0) L 06/30/18 16:13 Potassium 4.0 mEq/L (3.5-5.2) 07/01/18 04:10 POC Chloride 111 mEq/L (97-110) H 06/30/18 16:13 Chloride 119 mEq/L (97-110) H 07/01/18 04:10 Carbon Dioxide 17 mEq/l (22-31) L 07/01/18 04:10 Anion Gap 9 mEq/L (6-14) 07/01/18 04:10 POC BUN 28 mg/dL (7-23) H 06/30/18 16:13 BUN 26 mg/dL (7-23) H 07/01/18 04:10 Creatinine 0.7 mg/dL (0.6-1.0) 07/01/18 04:10 POC Creatinine 0.5 mg/dL (0.6-1.0) L 06/30/18 16:13 Estimated GFR > 60 07/01/18 04:10 Glucose 107 mg/dL (70-100) H 07/01/18 04:10 POC Glucose 111 mg/dL (70-100) H 07/01/18 07:37 Calcium 8.2 mg/dL (8.5-10.4) L 07/01/18 04:10 Phosphorus 4.3 mg/dL (2.5-4.5) 07/01/18 04:10 Magnesium 1.7 mg/dL (1.6-2.3) 07/01/18 04:10 Total Bilirubin 0.3 mg/dL (0.1-1.4) 06/30/18 20:15 Conjugated Bilirubin 0.3 mg/dL (0.0-0.5) 06/30/18 20:15 Unconjugated Bilirubin 0.0 mg/dL (0.0-1.1) 06/30/18 20:15 AST 35 IU/L (14-46) 06/30/18 20:15 ALT 35 IU/L (9-52) 06/30/18 20:15 Alkaline Phosphatase 147 IU/L (38-126) H 06/30/18 20:15 Creatine Kinase 599 IU/L (0-156) H 06/30/18 16:10 CK-MB (CK-2) Fraction 24.90 ng/mL (0.00-4.55) H 06/30/18 16:10 CK-MB (CK-2) % 4.2 % (0.0-4.0) H 06/30/18 16:10 Creatine Kinase Interp POSITIVE (NEGATIVE) H 06/30/18 16:10 POC Troponin I 0.01 ng/mL (0.00-0.08) 06/30/18 16:13 Total Protein 4.9 g/dL (6.3-8.2) L 06/30/18 20:15 Albumin 2.3 g/dL (3.5-5.0) L 06/30/18 20:15 Lipase < 10 IU/L (23-300) L 06/30/18 20:15 Procalcitonin 0.11 ng/mL (0.02-0.10) H 06/30/18 20:15 Urine Color YELLOW 06/30/18 16:15 Urine Appearance MODERATELY TURBID 06/30/18 16:15 Urine pH 5.0 (5.0-7.5) 06/30/18 16:15 Ur Specific [place] 1.020 (1.002-1.030) 06/30/18 16:15 Urine Protein 1+ (NEGATIVE) H 06/30/18 16:15 Urine Ketones 1+ (NEGATIVE) H 06/30/18 16:15 Urine Blood 1+ (NEGATIVE) H 06/30/18 16:15 Urine Nitrate NEGATIVE (NEGATIVE) 06/30/18 16:15 Urine Bilirubin NEGATIVE (NEGATIVE) 06/30/18 16:15 Urine Urobilinogen 2.0 EU (0.2-1.0) H 06/30/18 16:15 Ur Leukocyte Esterase 2+ (NEGATIVE) H 06/30/18 16:15 Urine RBC 10-15 /hpf (0-3) H 06/30/18 16:15 Urine WBC 50-182 /hpf (0-3) H 06/30/18 16:15 Ur Epithelial Cells TRACE /lpf (NONE-1+) 06/30/18 16:15 Urine Bacteria 4+ /hpf (NONE SEEN) H 06/30/18 16:15 Hyaline Casts 25-50 /lpf (0-1) H 06/30/18 16:15 Urine Mucus 2+ /lpf (NONE-1+) H 06/30/18 16:15 Urine Glucose NEGATIVE (NEGATIVE) 06/30/18 16:15 Visualized and Interpreted Chest x-ray results: Yes Chest X-Ray results: no infiltrate Visualized and Interpreted imaging results: Yes Assessment & Plan Assessment: ASSESSMENT 72-year-old morbidly obese female with multiple medical problems and inability to perform self-care admitted with encephalopathy, severe hypothermia, septic shock from UTI, as well as infected pannus # septic shock, requiring norepinephrine for blood pressure support # hypothermia, status post passive rewarming # encephalopathy, suspect hypoactive delirium in the setting of critical illness. CT head negative. It is possible the patient is a component of Wernicke's given poor diet and self-care. Per report no nuchal rigidity. Viral encephalitis less likely # UTI # atrial fibrillation. On Eliquis as outpatient. Unclear last dose. Holding it for now # infected pannus/panniculitis # obesity # hypertension PLAN # broad-spectrum antibiotics and antifungal per ID # continue low-dose peripheral vasopressin via peripheral IV in AC. For multiple clinical trials demonstrating efficacy and safety of low-dose vasopressors via peripheral IVs as long as the patient and IV site are appropriately selected. # place NG tube and start midodrine to help resolve shock in wean off vasopressors # aggressively replete potassium # wound care to pannus # IV thiamine for possible Wernicke's # hold OP antihypertensives # social work and case management consults for help with transition of care # Feeding - NPO # Analgesia none # Sedation none # Thromboprophylaxis - holding # Head of bed elevated # Ulcer prophylaxis - NA # Glucose SSI # Skin no skin breakdown # Delirium - delirium precautions Patient is critical ill due to life threatening organ failure and is at high risk for decompensation and . Total critical care time, excluding procedures: 80 min which was spent at bedside evaluating patient, multidisciplinary rounds. Titrating vasopressors in adding adjunctive medications, discussions with other physicians regarding her care. IMAGING 06/22/2018 CT head, CT spine, CT chest, CT abdomen. No intracranial bleed. Evidence of prior stroke, no obvious PE, no gross focal infiltrate, no intra- abdominal catastrophe.
--- NOTE | 2018-07-01 10:37 | ECHO ---
[email or web address] [address] Main: [phone] Fax: Transthoracic Echocardiogram Name: MUNIR NASSAR MR#: [id number] Study Date: 07/01/2018 Study Time: 09:04 AM Date of : 1945 Age: 72 year(s) Height: 162.6 cm (64 in.) Weight: 94.8 kg (209 lb.) BSA: 1.99 m2 Gender: Female Examination: Echo Indication: Cardiogenic shock Image Quality: Contrast: Requested by: Tere Heredia BP: 130 mmHg/52 mmHg Heart Rate: Rhythm: Indication: Cardiogenic shock Procedure Staff Condenser Tester: Truong Domingo RDCS Reading Physician: Radha Cabrera MD Requesting Provider: Conclusions: Normal size left ventricle. No LV hypertrophy. Global hypercontractility of the left ventricle. EF is 73 %. No regional wall motion abnormality. Normal size right ventricle. Normal RV function. Mildly elevated velocities across the aortic valve are likely related to hyperdynamic LV function and not . Trivial tricuspid valve regurgitation. The pulmonary artery pressure is normal. No pericardial effusion. Compared with 12/17/2017 HR now faster and LV is hyperdynamic Measurements: Chambers Valvular Assessment AV/MV Valvular Assessment TV/PV Normal Normal Normal Name Value Range Name Value Range Name Value Range Ao Jaja (MM): 1.9 cm (2.2 cm-3.7 AV Vmax: 2.78 m/s (1 m/s-1.7 TR Vmax: 2.31 mm/s ( - ) cm) m/s) TR PGmax: 21 mmHg ( - ) IVSd (2D): 0.8 cm (0.6 cm-1.1 AV maxP mmHg ( - ) syst. PAP: 31 mmHg ( - ) cm) LVOT Vmax: 1.64 m/s (0.7 m/s-1.1 PV Vmax: 1.19 m/s (0.6 m/s-0.9 LVDd (2D): 4.4 cm (3.9 cm-5.3 m/s) m/s) cm) MV E Vmax: 1.00 m/s ( - ) PV PGmax: 6 mmHg ( - ) LVDs (2D): 2.6 cm (2.1 cm-4 MV A Vmax: 1.02 m/s ( - ) cm) MV E/A: 0.98 ( - ) LVPWd (2D): 0.9 cm ( - ) LVEF (2D): 73 (>=54 %) Continued Measurements: Patient: MUNIR NASSAR Study Date: 07/01/2018 Page 1 of 2 09:04 AM Chambers Valvular Assessment AV/MV Valvular Assessment TV/PV Name Value Name Value Name Value LADs Lon.4 cm MV E' Septal: 0.09 m/s CVP (est.): 10 mmHg LA Area: 18.6 cm2 MV E/E' Septal: 11.60 LA Volume: 50 ml MV E/E' Lateral: 8.80 LA Volume Index: 25.1 ml/m2 Findings: Left Ventricle: Normal size left ventricle. No LV hypertrophy. Global hypercontractility of the left ventricle. EF is 73 %. No regional wall motion abnormality. Right Ventricle: Normal size right ventricle. Normal RV function. Left Atrium: The left atrium is normal in size. Right Atrium: The right atrium is normal in size. Mitral Valve: Mild mitral valve leaflet calcification is present. Trivial mitral valve regurgitation. Aortic Valve: The aortic valve is normal in appearance. Mildly elevated velocities across the aortic valve are likely related to hyperdynamic LV function and not . Tricuspid Valve: The tricuspid valve appears normal. Trivial tricuspid valve regurgitation. The pulmonary artery pressure is normal. Pulmonic Valve: The pulmonic valve is normal in appearance and function. Aorta: The aorta is normal. Pericardium: No pericardial effusion. Exam Comments: Compared to the previous exam of 12/17/17 there is now tachycardia at 107 bpm. There has been no significant change.. (No Signature Object) Patient: MUNIR NASSAR Study Date: 07/01/2018 Page 2 of 2 09:04 AM [id number]
--- NOTE | 2018-07-01 10:38 | GCON ---
INFECTIOUS DISEASE CONSULT DATE OF CONSULTATION: 07/01/2018 REFERRING PHYSICIAN: Brayan Jha MD REASON FOR CONSULT: To assist in the management of this 72-year-old female, admitted with septic shock. HISTORY OF PRESENT ILLNESS: The patient is a 72-year-old female whose previous medical history is notable for the followin. Hypertension. 2. Diabetes mellitus. 3. CVA, on Eliquis. 4. Morbid obesity. Regarding her present issues, the patient was recently hospitalized at [facility] from May 31 to June 19 for panniculitis. Our service was consulted, and the patient was treated with 7 days of oral Keflex and doxycycline, as well as fluconazole. It was recommended that she continue fluconazole for approximately 4 weeks given the severity of her intertriginous candidiasis. As I understand it, Case Management requested that the patient go to a mcc facility, but by report, the patient refused and was discharged to [place] in [place], where she lives alone, with no family or friends to care for her. Per EMS, the local fire department checked on the patient yesterday and noted that she had fallen, but was not altered, per se. The patient refused to come to the hospital for further evaluation. Later that afternoon, they went back and found her on the floor unresponsive. In our emergency department, the patient was hypothermic to 29 degree Celsius and hypotensive with a blood pressure in the 70/40s. Dr. Watson of Trauma Surgery was called to place a central line versus a warming catheter, but given her severe intertriginous candidiasis, it was felt that the risks of placement outweighed the benefits. In the emergency room, she was given IV fluids and warmed. Her blood pressure improved to the 80s. Her mentation improved as well. She was given a dose of ceftriaxone 1 g and admitted to the intensive care unit for further evaluation and treatment. The hospitalist service started her on appropriate antibiotics in the form of vancomycin and cefepime, and fluconazole was continued. I am now asked to assist in her management. The patient is presently on 8 mikes of Levophed. The patient responds when I call her name, but is otherwise clearly disoriented and mumbling. REVIEW OF SYSTEMS: Unobtainable. PREVIOUS MEDICAL HISTORY: As outlined above. ALLERGIES: Penicillin, by report, causes a rash. Levofloxacin is also listed as an allergy, unclear reaction. MEDICATIONS: Presently include: 1. Cefepime 2 g IV q.8 hours. 2. Pepcid 20 mg p.o. b.i.d. 3. Lovenox 40 mg subcutaneous daily. 4. Lantus insulin. 5. Fluconazole 200 mg IV daily. 6. Vancomycin 1.25 g IV q.12 hours. 7. Mycostatin powder. 8. Norepinephrine. SOCIAL HISTORY: The patient presently lives [place] by herself. By report, there is no history of tobacco, alcohol, or drug use. I am not sure whether or not she has pets. FAMILY HISTORY: Noncontributory. PHYSICAL EXAM: VITAL SIGNS: T-current is 37.8. T-max is the same. T-min is 29 degrees yesterday evening. Heart rate of 107, blood pressure of 130/52, and 97% on 3 L. GENERAL: Disheveled female, appears older than stated age, in bed. HEENT: The patient's eyelids are somewhat swollen, with a small amount of purulence in the inner canthus of the left eye. There is no obvious evidence of dacryocystitis or orbital or periorbital cellulitis. Her pupils are equal, round, and reactive. Her extraocular movements are intact. No scleral icterus or petechiae. No discharge from the nares or sinus process tenderness. Mucous membranes are quite dry, and the patient smells ketotic. No oral lesions are noted, and no thrush. NECK: Supple. CARDIOVASCULAR: S1 and S2, tachycardic, 1 to 2/6 systolic ejection murmur, heard best at the left upper and left lower sternal borders. No rub is audible. No extra heart sounds. LUNGS: Poor inspiratory effort. Clear to auscultation anterolaterally. ABDOMEN: Obese, but soft. EXTREMITIES: No muscle belly tenderness. The patient has evidence of osteoarthritis in her hands and her feet. The patient's hands and feet are quite puffy. SKIN: Notable for a small , nickel-sized, superficial laceration on the dorsum of her hand by her thumb on the left side. It does not appear secondarily infected. The patient's hands and feet are plethoric with blanching erythema. She also has what looks like a very faint scarlatiniform blanching rash on her upper chest and on her left upper extremity. The patient has a small purpuric lesion superior to her antecubital fossa on the left arm. No stigmata of endocarditis is visible. No splinter hemorrhages. The patient, in between her pannicular fold, is notable for severe skin maceration with denuded epithelium and intertriginous candidiasis. This is quite painful. No vesicular lesions. No surrounding cellulitis. I cannot see her backside. NEUROLOGIC: The patient is responsive to her name and knows she is at the hospital, but otherwise does not know the month or year. She is moving all 4 extremities. MICROBIOLOGIC DATA: Blood cultures x2 are pending. May 31 urine culture with greater than 100,000 colonies of E coli, resistant only to Bactrim , ampicillin, ampicillin/sulbactam, and tetracycline. LABORATORY DATA: White blood cell count of 14.9 (up from 10.3 yesterday), hematocrit 36, platelet count of 223, with 83% neutrophils, 6% lymphocytes, no eosinophilia. BUN and creatinine 26 over 0.7, sodium 145, potassium 4, chloride 119, bicarb 17. Liver function tests yesterday showed an AST of 35, ALT of 35, alkaline phosphatase 147, total bilirubin of 0.3, albumin of 2.3, procalcitonin of 0.11. Urinalysis yesterday showed 1+ protein, 1+ blood, 10-15 red cells, 50-182 white cells, 4+ bacteria, and 2+ mucus. No urine culture was sent. RADIOGRAPHIC DATA: The patient had CT scans of the abdomen and pelvis that did not reveal any obvious pathology. She also had CT scans of her T-spine, L-spine , and C-spine which were without evidence of fracture. Of note, an EKG performed yesterday afternoon shows a QTc of 0.585. IMPRESSION: 72-year-old female with hypertension, diabetes mellitus, and morbid obesity, status post recent hospital admission for panniculitis who now presents with septic shock. Agree that at this point in time, a urinary etiology seems most plausible. There is no evidence of pneumonia or intraabdominal pathology. The severe panniculitis continues, but there is no surrounding cellulitis. I suspect the plethoric hands, feet, and facies represent a rewarming phenomenon; toxic shock syndrome from group A Strep or Staphylococcus seems very unlikely. I also suspect her confusion is related to her acute illness; doubt meningitis or encephalitis from something like herpes simplex virus. PLAN: 1. Agree with broad-spectrum antibiotics pending culture data in the form of vancomycin and cefepime. Change cefepime dose to 2 g IV q.12 hours. 2. For her severe Hina intertrigo, given the prolonged QTc, stop fluconazole and start micafungin 100 mg IV daily. 3. A culture was sent from her intra-abdominal folds, as well as a fungal culture to ascertain whether she could have fluconazole-resistant Hina, although suspect progression of infection is from nonadherence. 4. Obtain an echocardiogram given the audible heart murmur. 5. Would also try and obtain a urine culture. Hopefully, this can be sent from last night's urine. 6. Do not feel the patient necessitates a lumbar puncture at this point in time. 7. Blood cultures are pending. Thank you very much for consulting Infectious Diseases. We will continue to follow this patient with you. Over 70 minutes was spent with this patient today. /[id number]/MODL YONG
--- NOTE | 2018-07-01 11:57 | ASMTLACE ---
JOLENE Acuity / Level of Answers: Yes Care: Did the patient have an inpatient admission? Comorbidities - select Answers: Cerebrovascular disease all that apply (CVA, TIA, aneurysms, vasc ular dementia) Diabetes (uncontrolled or controlled) Opioid dependence / Chronic pain Other Notes: HTN, HLD, obesity, fibr param algia # of Emergency department Answers: 1-2 visits in the last 6 months Social determinants Answers: Lack of community resources and/or lack of social support (no pcp, lives alone, transportation, chichi d) Score: 15 Date Signed: 07/01/2018 11:56 AM Electronically Signed By:Sussy Martinez RN
--- NOTE | 2018-07-01 12:56 | ASMTCMCOM ---
CM Note CM Note Notes: Pt admitted for hypothermia, hypotension and septic shock d/t UTI. Pt is reportedly is still disoriented but responds to her name and knows she is in the hospital. Pt arrived to the ED via EMS as a FTA after being found down in her home in [place] by the local Fire Dept (not sure if [employer] or [place] - waiting for a call back) which was completing a welfare check. Pt lives in a small cabin by herself with her dog and has a history of not caring for herself adequately so the Fire Dept does welfare checks on her often (they had visited her 06/29 and noticed pt had fallen but pt refused transport to the ED at that time). This CM still hoping to hear from one of the Fire Depts to confirm pt's dog is being care for or where it is located. Pt was admitted at [facility] 05/31-06/19/18 for panniculitis and had initially been recommended to DC to SNF but pt did not have any Medicare SNF days left and she was unable to private pay for SNF. [facility] Inpatient rehab and LTAC options were also considered but they declined patient. There is not a skilled HC agency that will go to her address in [place] (but per past CM Reports pt had [facility] in the past but they will not take pt back due to her non-adherence - see past HC Reports). Pt had also been recommended to stay at a local hotel for awhile in order to receive skilled HC (especially wound care) but pt declined. Pt was eventually d/c'd home with unskilled HC through [facility] ([phone]). Pt had reported she planned on having [facility] visit daily for 5 hrs. This CM called [facility] and left a voicemail for Jeane Newman; still waiting for a call back. Pt also had a PC consult on 06/05/18; see that Note & 06/02/18 Spiritual Services Note for additional background info. Pt's father, brother and a cousin within the past year. Pt reportedly does not have any other family involved at this time. Per past chart review, pt has reported having many friends who help her out, including a neighbor who picks up groceries for her and Manuel Car (/[facility]). Also, pt reportedly lost her of 30yrs about 10 years ago. Pt has a friend listed as NOK/Emergency Contact: Shirin Dill ([phone]) but when this CM called, the person who answered said it is the wrong number. Pt was also admitted back in December 2017 and was d/c'd to [facility] at that time; pt's friend Shirin's # at that time was listed as [phone] but the # is now disconnected. Pt does not appear to have an Advance Directive, MDPOA or Living Will scanned into our system. Pt's PCP is listed as Dr.Eric Mendez at [facility] in [place] ([phone]). PT/OT and Wound Care evals ordered. ID following. Exact DC needs TBD. CM to follow. Date Signed: 07/01/2018 12:55 PM Electronically Signed By:Sussy Martinez RN
[2018-07-01] MEDS ORDERED: PROTOCOL MAGNESIUM 1 DOSE IV PRN (15:03)
[2018-07-01] MEDS ORDERED: LIDOCAINE 2% JELLY 20 ML (UROJECT) ONE (16:31)
[2018-07-01] MEDS ORDERED: LIDOCAINE 2% JELLY 20 ML (UROJECT) UR ONE (16:45)
--- NOTE | 2018-07-01 17:34 | ASMTCMCOM ---
CM Note CM Note Notes: Received a call back from Jeane Newman (c: [phone]), cottage parent of [facility]. Jeane states she was up at the patient's cabin yesterday when they found the pt on the floor for the 3rd day in a row and called EMS. The previous two days they called the [employer] for lift assist and pt refused to come to the ED. Per Jeane, pt's house is disheveled, unkempt and unsafe for her to return to. Jeane said to feel free to reach out to her or the water meter installer most familiar w/pt's case, Chaim Abreu (main HC [facility] the [facility] # [phone]). Jeane also said that BRYN Johnson at [facility] ([phone]) has been involved w/pt's case but not through [facility] (who will not take her back due to nonadherence). Spoke w/ Gogo, metal cutter with [employer]; she states pt's dog, Saqib is being cared for by a couple, Jw & Hawa, in [place]. But tomorrow or Tuesday, Saqib will then go to stay with Nataly Scherer in the [place] for "however long is needed." If the pt or anyone needs to contact someone re:Saqib whereabouts, etc. Gogo recommended to call the local vet, Terese Lancaster ([phone]) w/ [facility]. Spoke w/Deputy Hernadez ([phone]) with [facility] who is also very familiar with the patient and has been involved in the past. Per Satya, he placed pt on an M1 hold for being gravely disabled on 12/16/17 (pt as admitted to [facility] but there weren't any notes about her being on an M1). Satya also states his report on 12/16 listed Swetha Jain (h:[phone], c:[phone]; she lives in [place]) as a close friend. Also, Satya states that Manuel Car w/ [facility] is on vacation for the next week or so. Pt's MANINDER, Racheal Ordonez ([phone]) lives in [facility] and stated she is more than happy to discuss how she can help in anyway. Overall, there are a lot of friends, community service members, etc. concerned for this pt's well-being and they all seem to agree that pt is unable to care for herself at home. This CM called [facility] ([phone]), spoke w/Nathan and filed a report on the case of self-neglect; Case No. [id number]. Per Nathan, APS will not be able to review the case until Tuesday due to the holiday. If there are any changes in the next 3 days, please reach out to APS and update them. CM to follow. Date Signed: 07/01/2018 05:34 PM Electronically Signed By:Sussy Martinez RN
[2018-07-01] MEDS ORDERED: MAGNESIUM SULF 1 GM/DEXTROSE 100 ML IV ONE (18:05)
[2018-07-01] MEDS: THIAMINE HCL 500 MG in NS 100 ML IV SCH ×2 (18:33→22:47)
[2018-07-01] MEDS: MICAFUNGIN NA 100 MG in NS 100 ML IV SCH (22:47)
[2018-07-02] MEDS: POTASSIUM Cl (KCl) 100 ML IV SCH (02:33)
[2018-07-02] MEDS: MIDODRINE HCL 5 MG TAB PO SCH ×3 (02:36→18:20)
[2018-07-02] MEDS: CEFEPIME HCL 2 GM in NS 100 ML IV SCH ×2 (07:16→18:26)
[2018-07-02] MEDS: THIAMINE HCL 500 MG in NS 100 ML IV SCH ×3 (07:16→22:31)
[2018-07-02] MEDS: INSULIN LISPRO 100 UNIT/ML SC SCH ×3 (07:57→18:23)
[2018-07-02] MEDS: NYSTATIN POWDER 15 GM BTL TP SCH ×3 (09:02→21:25)
[2018-07-02] MEDS: FAMOTIDINE 20 MG TAB PO SCH ×2 (09:02→21:24)
[2018-07-02] MEDS: ENOXAPARIN 40 MG/0.4 ML SYR SC SCH (09:03)
--- NOTE | 2018-07-02 10:04 | PCMIDPN ---
Assessment/Plan: 1. Sepsis of unclear etiology: She is much better today. Pressors have been weaned off. No evidence of g positives, therefore will discontinue vancomycin and continue cefepime pending blood and urine culture outcomes. Patient was reporting antecedent dysuria prior to her decompensation. 2. Severe intertriginous candidiasis: Fungal culture pending to ensure she does not have fluconazole resistant yeast. Continue Micafungin, moreso secondary to prolonged QTC. Subjective: Much better today! Sitting up, talking to me. States she was having some burning with urination a day before she fell. Still having severe discomfort from her denuded skin/panniculitis. No diarrhea. Feeding tube placed last night. Objective: Cefepime 2 g IV q.12 hours day 2 Micafungin 100 mg IV daily day 2 Vancomycin at 1.25 g IV q.12 hours day 2 Afebrile Vital Signs Temp Pulse Resp BP Pulse Ox 36.6 C 57 L 17 121/67 H 93 07/02/18 08:00 07/02/18 08:00 07/02/18 08:00 07/02/18 08:00 07/02/18 08:00 Microbiology 07/01/18 09:30 Gram Stain - Final Abdomen - Swab Laboratory Results 07/02/18 06:00 07/02/18 06:00 07/01/18 07/02/18 07/03/18 05:59 05:59 05:59 Intake Total 1200 2853 Output Total 300 900 Balance 900 1953 Blood cultures and urine cultures pending Vancomycin trough 16.3 - Physical Exam General Appearance: no apparent distress, obese, other (Alert, talking to me today.) EENT: other (No teeth, dry mouth, smells ketotic, significant caked mouth debris ), No scleral icterus Respiratory: lungs clear Neck: supple Cardiac/Chest: tachycardia, systolic murmur Extremities: other (Hands and feet are erythematous and puffy) Abdomen: other (Obese. Severe intertriginous candidiasis remains.) Skin: other (Puffy, erythematous hands and feet), No rash Neuro/Psych: oriented x 3 ICD10 Worksheet Patient Problems: Problems Problem Status Onset Hypotension Acute Hypothermia Acute Sepsis due to urinary tract infection Acute Septic shock Acute Cellulitis Acute Contusion of right hip Acute Dehydration Acute Frequent falls Acute Urinary tract infection Acute
[2018-07-02] MEDS ORDERED: POTASSIUM CL 20 MEQ/15 ML UDCUP PO ONE (10:25)
[2018-07-02] MEDS ORDERED: POTASSIUM Cl (KCl) 100 ML IV SCH (11:00)
[2018-07-02] MEDS: VANCOMYCIN 1.25 GM in NS 250 ML IV SCH (11:30)
[2018-07-02] MEDS ORDERED: PROTOCOL POTASSIUM 1 DOSE MISC PRN (12:27)
[2018-07-02] MEDS: SERTRALINE HCL 100 MG TAB PO SCH (13:06)
[2018-07-02] MEDS: RIVAROXABAN 20 MG TAB PO SCH (13:44)
--- NOTE | 2018-07-02 13:45 | PDINTPN ---
Unemployment Examiner Progress Note Assessment/Plan: ASSESSMENT 72-year-old morbidly obese female with multiple medical problems and inability to perform self-care admitted with encephalopathy, severe hypothermia, septic shock from UTI, as well as infected pannus # septic shock, required peripheral norepinephrine. Weaned off after starting midodrine # hypothermia, status post passive rewarming # encephalopathy, improving. Hypoactive delirium, possible Wernicke is given poor diet and self-care. No nuchal rigidity and CT head negative # UTI # atrial fibrillation. On Eliquis as outpatient. Unclear last dose. Holding it for now # infected pannus/panniculitis # obesity # hypertension # bradycardia with intraventricular conduction delay PLAN # broad-spectrum antibiotics and antifungal per ID # wean off midodrine as able # monitor on tele for bradycardia # removing G-tube now the patient is taking p.o. # IV thiamine for possible Wernicke's # aggressively replete potassium # wound care to pannus # hold OP antihypertensives # Xarelto restarted by hospital medicine. Agree # social work and case management consults for help with transition of care # Feeding - NPO # Analgesia none # Sedation none # Thromboprophylaxis - holding # Head of bed elevated # Ulcer prophylaxis - NA # Glucose SSI # Skin no skin breakdown # Delirium - delirium precautions IMAGING 06/22/2018 CT head, CT spine, CT chest, CT abdomen. No intracranial bleed. Evidence of prior stroke, no obvious PE, no gross focal infiltrate, no intra- abdominal catastrophe. Subjective: Weaned off of vasopressors yesterday after adding high-dose midodrine. NG tube placed to given oral medications. Interval improvement in mental status and ability to swallow today. Alert and oriented to name and place. Off on year. Still confused but improving. Denies headaches fevers chills nausea vomiting. Does complain of ongoing abdominal skin pain Objective: Vital Signs Temp Pulse Resp BP Pulse Ox 36.8 C 45 L 20 147/76 H 92 07/02/18 12:00 07/02/18 12:00 07/02/18 12:00 07/02/18 12:00 07/02/18 12:00 Microbiology 07/01/18 09:30 Gram Stain - Final Abdomen - Swab Laboratory Results 07/02/18 06:00 07/02/18 06:00 07/01/18 07/02/18 07/03/18 05:59 05:59 05:59 Intake Total 1200 2853 600 Output Total 300 900 Balance 900 1953 600 PT 20.5 SEC (12.0-15.0) H 06/30/18 16:10 INR 1.75 (0.83-1.16) H 06/30/18 16:10 Physical Exam - Physical Exam General Appearance: alert, no apparent distress, other (Discharge hold) EENT: PERRL/EOMI, normal ENT inspection Neck: non-tender, full range of motion, normal inspection Respiratory: chest non-tender, lungs clear, normal breath sounds Cardiac/Chest: normal peripheral pulses, regular rate, rhythm, No edema Abdomen: normal bowel sounds, other (Abdominal wall skin panniculitis not worsened from yesterday) Skin: other (Panniculitis in place.) Neuro/Psych: no motor/sensory deficits, alert, normal mood/affect, other ( Oriented to name and place. Off on year) ICD10 Worksheet Patient Problems: Problems Problem Status Onset Hypotension Acute Hypothermia Acute Sepsis due to urinary tract infection Acute Septic shock Acute Cellulitis Acute Contusion of right hip Acute Dehydration Acute Frequent falls Acute Urinary tract infection Acute
--- NOTE | 2018-07-02 13:47 | HOSPPROG ---
Hospitalist Progress Note Assessment/Plan: #Septic shock: -weaning off pressors. Suspect urinary or panniculitis. Blood, urine and wound cultures pending. -CT chest and abdomen unrevealing -appreciate ID consult. Cont Micafungin, Cefepime -wean midodrine over next couple days #Acute metabolic encephalopathy: mildly improved -due to acute illness. CTH negative #Candidia intertrigo: change to Micafungin with prolonged Qtc #Prolonged Qtc: telemetry, stop fluconazole and Zofran #Hypothermia: warmed #Dysphagia: passed swallow #Morbid obesity #Hypokalemia: replete #Bradycardia: telemetry. Not on AV-brian agents. #Atrial fibrillation (EKG personally reviewed by me). Xarelto #h/o lacunar CVA: CTH stable #DM2: hold Lantus with low sugars, SSI if needed #DVT ppx: Lovenox #Social: per EMS, house is very unsafe. Do not recommend discharge back home given inability to care for self and recurrent hospitalizations. CM to assist when clinically improved Inpatient admission for IV abx, pressors. Case d/w Dr. Toth. Subjective: more alert today Objective: Vital Signs Temp Pulse Resp BP Pulse Ox 36.8 C 45 L 20 147/76 H 92 07/02/18 12:00 07/02/18 12:00 07/02/18 12:00 07/02/18 12:00 07/02/18 12:00 Microbiology 07/01/18 09:30 Gram Stain - Final Abdomen - Swab Laboratory Results 07/02/18 06:00 07/02/18 06:00 07/01/18 07/02/18 07/03/18 05:59 05:59 05:59 Intake Total 1200 2853 600 Output Total 300 900 Balance 900 1953 600 PT 20.5 SEC (12.0-15.0) H 06/30/18 16:10 INR 1.75 (0.83-1.16) H 06/30/18 16:10 - Time Spent With Patient Time Spent with Patient: greater than 35 minutes Time Spent with Patient: Greater than 35 minutes spent on this patients care, greater than 50% of time spent counseling, educating, and coordinating care regarding the above mentioned plan. - Physical Exam Constitutional: obese, unkempt Ears, Nose, Mouth, Throat: dry mucous membranes Cardiovascular: regular rate and rhythym Respiratory: no respiratory distress Gastrointestinal: normoactive bowel sounds Genitourinary: lopez in urethra Skin: warm, other (macerated skin and erythema under pannus, no purulence) Musculoskeletal: generalized weakness Neurologic: CN II-XII Intact, No facial droop Psychiatric: encephalopathic ICD10 Worksheet Patient Problems: Problems Problem Status Onset Hypotension Acute Hypothermia Acute Sepsis due to urinary tract infection Acute Septic shock Acute Cellulitis Acute Contusion of right hip Acute Dehydration Acute Frequent falls Acute Urinary tract infection Acute
[2018-07-02] MEDS ORDERED: POTASSIUM CL 10 MEQ TAB PO ONE (21:13)
[2018-07-02] MEDS: MICAFUNGIN NA 100 MG in NS 100 ML IV SCH (21:25)
[2018-07-03] MEDS: MIDODRINE HCL 5 MG TAB PO SCH ×2 (02:31→08:01)
[2018-07-03] MEDS: NYSTATIN POWDER 15 GM BTL TP SCH ×4 (06:27→22:01)
[2018-07-03] MEDS: THIAMINE HCL 500 MG in NS 100 ML IV SCH (06:27)
[2018-07-03] MEDS: CEFEPIME HCL 2 GM in NS 100 ML IV SCH (06:27)
[2018-07-03] MEDS: INSULIN LISPRO 100 UNIT/ML SC SCH ×3 (07:20→17:03)
[2018-07-03] MEDS: POTASSIUM Cl (KCl) 100 ML IV SCH ×3 (07:50→10:08)
[2018-07-03] MEDS: SERTRALINE HCL 100 MG TAB PO SCH (07:58)
[2018-07-03] MEDS: FAMOTIDINE 20 MG TAB PO SCH ×2 (07:58→22:00)
[2018-07-03] MEDS: RIVAROXABAN 20 MG TAB PO SCH (07:58)
--- NOTE | 2018-07-03 08:24 | CPEKG ---
Test Reason : OPEN Blood Pressure : / mmHG Vent. Rate : 055 BPM Atrial Rate : 056 BPM P-R Int : 257 ms QRS Dur : 124 ms QT Int : 499 ms P-R-T Axes : 037 004 027 degrees QTc Int : 478 ms Sinus rhythm Prolonged ND interval Nonspecific intraventricular conduction delay Sinus rhythm has replaced atrial fibrillation Confirmed by Prasanth Lagunas ([id number]) on 07/03/2018 8:24:21 AM Referred By: Confirmed By:Prasanth Lagunas
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
--- NOTE | 2018-07-03 11:28 | WOCRNPDOC ---
WOCRN Advanced Assessment Note - Skin Integrity Problem, Advanced Assess Left Buttock Unknown Dressing Type: Allevyn Life Exudate Amount: Minimal Exudate Characteristic(s): Serosanguinous Integumentary Issue Intervention: Visualized Under Dressing Wound Bed Color: [place], Purple, Red Wound Bed Constitution: Red/[place] - Non Granular Tissue (100%) Site Measurement - Head-to-Toe Length X Width X Depth (cm): 4x4x0.1 Pressure Injury Stage: Deep Tissue Injury (DTI) Pressure Injury Present on Admit: Yes Skin Integrity Problem Comment: Evolving deep tissue injury with partial thickness epidermal sloughing on 1/3 of the wound thusfar. Wound care will follow. Patient aware of wound and educated re: etiology/treatment. Yolanda PASCUAL in room for care.
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
--- NOTE | 2018-07-03 12:37 | PCMIDPN ---
Assessment/Plan: Assessment: Sepsis probably secondary to an E coli urinary tract infection. Blood cultures are not growing anything as of yet. Patient continues on IV cefepime and micafungin. Antibiotics were changed today to ceftriaxone. Overall the patient is improving clinically. Plan: 1. Continue treatment with IV ceftriaxone. Also continue with micafungin for fungal dermatitis. 2. Continue to follow her clinical examination. 07/03/18 15:53 Subjective: Pt admits to feeling better. IBrunilda, am scribing for, and in the presence of, Deon Banks MD. IDeon MD, personally performed the services described in this documentation, as scribed by Brunilda Judge in my presence, and it is both accurate and complete. Objective: Vital Signs Temp Pulse Resp BP Pulse Ox 36.7 C 61 22 H 136/57 H 96 07/03/18 07:50 07/03/18 10:00 07/03/18 10:00 07/03/18 10:00 07/03/18 10:00 Microbiology 07/01/18 09:30 Gram Stain - Final Abdomen - Swab Laboratory Results 07/03/18 04:20 07/03/18 04:20 07/02/18 07/03/18 07/04/18 05:59 05:59 05:59 Intake Total 2853 2000 Output Total 900 1900 Balance 1953 100 Microbiology: 06/30/18 Urine cx grew, E. coli. 06/30/18 Blood cx (2) NGTD. 07/01/18 Abdomen swab, with NGTD. - Physical Exam General Appearance: alert, no apparent distress, obese EENT: other (edentulous ), No scleral icterus Respiratory: lungs clear, normal breath sounds Cardiac/Chest: regular rate, rhythm, systolic murmur Skin: warm/dry, No rash ICD10 Worksheet Patient Problems: Problems Problem Status Onset Hypotension Acute Hypothermia Acute Sepsis due to urinary tract infection Acute Septic shock Acute Cellulitis Acute Contusion of right hip Acute Dehydration Acute Frequent falls Acute Urinary tract infection Acute
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
[2018-07-03] MEDS: ACETAMINOPHEN 325 MG TAB PO PRN (16:50)
[2018-07-03] MEDS ORDERED: POTASSIUM CL 10 MEQ TAB PO ONE (18:39)
[2018-07-03] MEDS: MICAFUNGIN NA 100 MG in NS 100 ML IV SCH (20:13)
[2018-07-04] MEDS ORDERED: POTASSIUM CL 10 MEQ TAB PO ONE (07:27)
[2018-07-04] MEDS ORDERED: MAGNESIUM SULF 1 GM/DEXTROSE 100 ML IV ONE (07:27)
[2018-07-04] MEDS: INSULIN LISPRO 100 UNIT/ML SC SCH ×3 (07:35→16:36)
[2018-07-04] MEDS: RIVAROXABAN 20 MG TAB PO SCH (08:25)
[2018-07-04] MEDS: SERTRALINE HCL 100 MG TAB PO SCH (08:25)
[2018-07-04] MEDS: FAMOTIDINE 20 MG TAB PO SCH ×2 (08:25→20:50)
[2018-07-04] MEDS: NYSTATIN POWDER 15 GM BTL TP SCH ×3 (09:35→20:50)
--- NOTE | 2018-07-04 09:51 | HOSPPROG ---
Hospitalist Progress Note Assessment/Plan: #Septic shock: -weaned off pressors. -E coli UTI, narrow to CTX -blood cultures NGTD -CT chest and abdomen unrevealing -appreciate ID consult. Cont Micafungin, Cefepime #Acute metabolic encephalopathy: resolved -due to acute illness. CTH negative #Candidia intertrigo: change to Micafungin with prolonged Qtc #Prolonged Qtc: telemetry, stop fluconazole and Zofran #Hypothermia: warmed #Dysphagia: passed swallow #Morbid obesity: #Hypokalemia: dose K today #Bradycardia: telemetry. Not on AV-brian agents. #Atrial fibrillation: rate-controlled. (EKG personally reviewed by me). Xarelto #h/o lacunar CVA: CTH stable #DM2: hold Lantus with low sugars, SSI if needed #DVT ppx: Lovenox #Disp: she declines SNF today. Very concerned about her safety given repeat admission and severity of illness. Think Palliative Care will be helpful to determine goals Inpatient admission for IV abx, PT Subjective: "I don't want to lose my independence" Objective: Vital Signs Temp Pulse Resp BP Pulse Ox 36.4 C 60 19 118/55 L 92 07/04/18 07:28 07/04/18 07:28 07/04/18 07:28 07/04/18 07:28 07/04/18 07:28 Microbiology 07/01/18 09:30 Gram Stain - Final Abdomen - Swab Wound Culture - Final Laboratory Results 07/03/18 04:20 07/04/18 04:50 07/03/18 07/04/18 07/05/18 05:59 05:59 05:59 Intake Total 1999 1550 510 Output Total 1900 4300 Balance 100 -2750 510 PT 20.5 SEC (12.0-15.0) H 06/30/18 16:10 INR 1.75 (0.83-1.16) H 06/30/18 16:10 - Time Spent With Patient Time Spent with Patient: greater than 35 minutes Time Spent with Patient: Greater than 35 minutes spent on this patients care, greater than 50% of time spent counseling, educating, and coordinating care regarding the above mentioned plan. - Physical Exam Constitutional: obese Eyes: PERRL, other (left periorbital ecchymosis) Ears, Nose, Mouth, Throat: other Cardiovascular: regular rate and rhythym Respiratory: no respiratory distress Gastrointestinal: normoactive bowel sounds Genitourinary: lopez in urethra Skin: other (less erythema under pannus) Neurologic: AAOx3, CN II-XII Intact Psychiatric: flat affect ICD10 Worksheet Patient Problems: Problems Problem Status Onset Frequent falls Acute Dehydration Acute Contusion of right hip Acute Cellulitis Acute Urinary tract infection Acute Hypothermia Acute Sepsis due to urinary tract infection Acute Septic shock Acute Hypotension Acute
--- NOTE | 2018-07-04 10:31 | PCMIDPN ---
Assessment/Plan: Assessment: Sepsis probably secondary to an E coli urinary tract infection. Blood cultures are not growing anything as of yet. Patient continues on IV ceftriaxone and micafungin. Overall the patient is improving clinically however she is at a low functional baseline. She will likely need more days of therapy prior to a successful discharge. Plan: 1. Continue treatment with IV ceftriaxone. Also continue with micafungin for fungal dermatitis. 2. Continue to follow her clinical examination. Subjective: Pt is feeling improved today, is tolerating caloric intake, and reports that she ambulated around her room this morning. IBrunilda, am scribing for, and in the presence of, Deon Banks MD. IDeon MD, personally performed the services described in this documentation, as scribed by Brunilda Judge in my presence, and it is both accurate and complete. Objective: Vital Signs Temp Pulse Resp BP Pulse Ox 36.4 C 60 19 118/55 L 92 07/04/18 07:28 07/04/18 07:28 07/04/18 07:28 07/04/18 07:28 07/04/18 07:28 Microbiology 07/01/18 09:30 Gram Stain - Final Abdomen - Swab Wound Culture - Final Laboratory Results 07/03/18 04:20 07/04/18 04:50 07/03/18 07/04/18 07/05/18 05:59 05:59 05:59 Intake Total 1999 1550 510 Output Total 1900 4300 Balance 100 -2750 510 Microbiology: 06/30/18 Urine cx grew, E. coli. 06/30/18 Blood cx (2), NGTD. 07/01/18 Abdomen swab cx, with NGTD. - Physical Exam General Appearance: alert, no apparent distress, obese, other (communicative ) Skin: No rash ICD10 Worksheet Patient Problems: Problems Problem Status Onset Hypotension Acute Hypothermia Acute Sepsis due to urinary tract infection Acute Septic shock Acute Cellulitis Acute Contusion of right hip Acute Dehydration Acute Frequent falls Acute Urinary tract infection Acute
[2018-07-04] MEDS: MICAFUNGIN NA 100 MG in NS 100 ML IV SCH (20:49)
[2018-07-05] MEDS ORDERED: POTASSIUM CL 10 MEQ TAB PO ONE (07:00)
[2018-07-05] MEDS: INSULIN LISPRO 100 UNIT/ML SC SCH ×3 (07:27→15:52)
--- NOTE | 2018-07-05 08:24 | PCMIDPN ---
Assessment/Plan: Assessment/Plan: * Sepsis likely of urinary etiology: Significant improvement clinically with normalization of leukocytosis. E coli isolated from urine with negative blood cultures. Will continue ceftriaxone with plans for 7-10 day course. * Intertrigo: Significant intertrigo present but markedly improved versus prior hospitalization. Continue micafungin given prolonged QT interval which makes fluconazole more problematic. 07/05/18 08:21 Subjective: Patient complains of dysuria. Notes she is feeling significantly better otherwise. Notes skin rash was improving with fluconazole prior to readmission. Objective: Vital Signs Temp Pulse Resp BP Pulse Ox 36.8 C 54 L 20 117/61 93 07/05/18 07:28 07/05/18 07:28 07/05/18 00:00 07/05/18 07:28 07/05/18 07:28 Laboratory Results 07/03/18 04:20 07/05/18 05:25 07/04/18 07/05/18 07/06/18 05:59 05:59 05:59 Intake Total 1550 1560 Output Total 4300 1900 Balance -2750 -340 Ceftriaxone # 3, antibiotics # 5 Micafungin # 5 Blood cultures x2 no growth Urine culture greater than 100,000 E coli - Physical Exam General Appearance: alert, no apparent distress EENT: dry mucous membranes, No scleral icterus, No thrush Respiratory: lungs clear, No respiratory distress Cardiac/Chest: bradycardia, No systolic murmur Abdomen: non-tender, No distended Skin: rash (Intertrigo in both inguinal regions, right greater than left both significantly improved versus prior; abdominal skin exam markedly improved versus prior hospital admission) ICD10 Worksheet Patient Problems: Problems Problem Status Onset Hypotension Acute Hypothermia Acute Sepsis due to urinary tract infection Acute Septic shock Acute Cellulitis Acute Contusion of right hip Acute Dehydration Acute Frequent falls Acute Urinary tract infection Acute
[2018-07-05] MEDS: RIVAROXABAN 20 MG TAB PO SCH (08:36)
[2018-07-05] MEDS: FAMOTIDINE 20 MG TAB PO SCH ×2 (08:36→21:08)
[2018-07-05] MEDS: SERTRALINE HCL 100 MG TAB PO SCH (08:36)
[2018-07-05] MEDS: NYSTATIN POWDER 15 GM BTL TP SCH ×3 (08:37→21:08)
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
--- NOTE | 2018-07-05 15:46 | CPEKG ---
Test Reason : OPEN Blood Pressure : / mmHG Vent. Rate : 055 BPM Atrial Rate : 056 BPM P-R Int : 257 ms QRS Dur : 124 ms QT Int : 499 ms P-R-T Axes : 037 004 027 degrees QTc Int : 478 ms Sinus rhythm Prolonged NE interval Nonspecific intraventricular conduction delay Confirmed by Prasanth Lagunas ([id number]) on 07/05/2018 3:45:25 PM Referred By: Confirmed By:Prasanth Lagunas
--- NOTE | 2018-07-05 16:34 | ASMTCMCOM ---
CM Note CM Note Notes: Therapies are recommending SNF. The last time pt was here at [facility]. Pt used up all her Medicare days. CM sent a referral to [facility] in [place] to see if they can run her benefits. CM to follow. Date Signed: 07/05/2018 04:34 PM Electronically Signed By:BARBARA Landon
[2018-07-05] MEDS: MICAFUNGIN NA 100 MG in NS 100 ML IV SCH (21:08)
[2018-07-06] MEDS: POTASSIUM Cl (KCl) 50 ML IV ONE ×2 (03:05→03:10)
--- NOTE | 2018-07-06 09:08 | PCMIDPN ---
Assessment/Plan: # Sepsis likely of urinary etiology: Significant improvement clinically with normalization of leukocytosis, although reports minimal change in dysuria over hospitalization, unclear significance with marked clinical improvement. No associated bacteremia. Will continue ceftriaxone for 10 days. MAR adjusted. Would not repeat urinalysis or culture at this point. # Intertrigo: Very minimal changes remain, reported significant response by partners. Important to improve sharif infection of external genitalia could be contributing factor to UTI. Receiving Micafungin due to prolonged QT. --plan 10 days, could be truncated for discharge --will recheck EKG to monitor QT interval --fungal cx collected 07/01 to evaluate for resistant yeast. Medication, antibiotics # 7 of 10 Ceftriaxone 1 g IV daily Micafungin 100 mg IV daily, # 6 Microbiology 06/30/18 16:49 Blood Cx (2) neg 06/30/18 16:15 Ucx 100K Escherichia Coli: Resistant to Bactrim, tetracyclines and Augmentin 07/01/18 09:30 Abdomen - Swab Fungal Culture : pending Subjective: Pt states that she is "feeling okay" today. Complains of dysuria present throughout hospitalization and unchanged. I, Brunilda Judge, am scribing for, and in the presence of, Hussein Maddox MD IHussein MD, personally performed the services described in this documentation, as scribed by Brunilda Judge in my presence, and it is both accurate and complete. Objective: Vital Signs Temp Pulse Resp BP Pulse Ox 36.4 C 56 L 17 119/65 89 L 07/06/18 07:21 07/06/18 07:21 07/06/18 07:21 07/06/18 07:21 07/06/18 07:21 Laboratory Results 07/03/18 04:20 07/06/18 03:50 07/05/18 07/06/18 07/07/18 05:59 05:59 05:59 Intake Total 1560 770 Output Total 1900 Balance -340 770 - Physical Exam General Appearance: alert, no apparent distress, obese, other (chronically ill appearing ) EENT: other (edentulous of upper bridge, ecchymosis over right eye ), No pale conjunctiva, No thrush Respiratory: other (decreased breath sounds on bilateral bases ), No accessory muscle use Cardiac/Chest: regular rate, rhythm Abdomen: non-tender, soft, other, No distended, No guarding Pelvic Exam: No lopez Skin: normal color, warm/dry, other (bilateral intertrigo mostly resolved in B groin), No rash Neuro/Psych: alert, oriented x 3 - Line/s PIV Lines: other (R-forearm PIV ), No drainage, No erythema - Time Spent With Patient Time Spent with Patient: greater than 35 minutes Time Spent with Patient: Greater than 35 minutes spent on this patients care, greater than 50% of time spent counseling, educating, and coordinating care regarding the above mentioned plan. ICD10 Worksheet Patient Problems: Problems Problem Status Onset Hypotension Acute Hypothermia Acute Sepsis due to urinary tract infection Acute Septic shock Acute Cellulitis Acute Contusion of right hip Acute Dehydration Acute Frequent falls Acute Urinary tract infection Acute
[2018-07-06] MEDS: INSULIN LISPRO 100 UNIT/ML SC SCH ×3 (09:14→18:11)
[2018-07-06] MEDS: RIVAROXABAN 20 MG TAB PO SCH (09:38)
[2018-07-06] MEDS: SERTRALINE HCL 100 MG TAB PO SCH (09:38)
[2018-07-06] MEDS: FAMOTIDINE 20 MG TAB PO SCH ×2 (09:39→22:34)
[2018-07-06] MEDS: NYSTATIN POWDER 15 GM BTL TP SCH ×3 (09:39→22:34)
[2018-07-06] MEDS ORDERED: POTASSIUM CL 10 MEQ TAB PO ONE (11:46)
--- NOTE | 2018-07-06 13:42 | CPEKG ---
Test Reason : OPEN Blood Pressure : / mmHG Vent. Rate : 068 BPM Atrial Rate : 069 BPM P-R Int : 200 ms QRS Dur : 107 ms QT Int : 400 ms P-R-T Axes : 040 -08 040 degrees QTc Int : 426 ms Sinus rhythm Confirmed by Prasanth Lagunas ([id number]) on 07/06/2018 1:42:10 PM Referred By: Confirmed By:Prasanth Lagunas
--- NOTE | 2018-07-06 16:30 | HOSPPROG ---
Hospitalist Progress Note Assessment/Plan: #Septic shock: -weaned off pressors. -E coli UTI. Completed full course abx #Acute metabolic encephalopathy: resolved, but poor insight. -Cog evaluation pending. -CTH negative #Candidia intertrigo: much improved. Stop Micafungin. Discussed with Dr. Nguyen #Prolonged Qtc: stable on repeat EKG. #Hypothermia: warmed #Dysphagia: awaiting swallow #Morbid obesity: counseled on diet #Hypokalemia: repleted #Bradycardia: telemetry. Not on AV-brian agents. #Atrial fibrillation (EKG personally reviewed by me). Xarelto #h/o lacunar CVA: CTH stable #DM2: hold Lantus with low sugars, SSI if needed #DVT ppx: Lovenox #Social: per EMS, house is very unsafe. Do not recommend discharge back home given inability to care for self and recurrent hospitalizations. Poor insight, cognitive evaluation pending. Palliative consulted last admission. Pt is adamant about going home. Inpatient admission for IV abx, pressors. Subjective: less pain with urination Objective: Vital Signs Temp Pulse Resp BP Pulse Ox 36.4 C 63 18 107/49 L 92 07/06/18 10:51 07/06/18 10:51 07/06/18 10:51 07/06/18 10:51 07/06/18 10:51 Laboratory Results 07/03/18 04:20 07/06/18 03:50 07/05/18 07/06/18 07/07/18 05:59 05:59 05:59 Intake Total 1560 770 960 Output Total 1900 Balance -340 770 960 PT 20.5 SEC (12.0-15.0) H 06/30/18 16:10 INR 1.75 (0.83-1.16) H 06/30/18 16:10 - Time Spent With Patient Time Spent with Patient: greater than 35 minutes Time Spent with Patient: Greater than 35 minutes spent on this patients care, greater than 50% of time spent counseling, educating, and coordinating care regarding the above mentioned plan. - Physical Exam Constitutional: no apparent distress Ears, Nose, Mouth, Throat: moist mucous membranes Cardiovascular: regular rate and rhythym Respiratory: no respiratory distress Gastrointestinal: normoactive bowel sounds Skin: other (erythema under pannus significantly improved) Musculoskeletal: generalized weakness Neurologic: CN II-XII Intact Psychiatric: poor insight, poor judgement, poor memory ICD10 Worksheet Patient Problems: Problems Problem Status Onset Hypotension Acute Hypothermia Acute Sepsis due to urinary tract infection Acute Septic shock Acute Cellulitis Acute Contusion of right hip Acute Dehydration Acute Frequent falls Acute Urinary tract infection Acute
--- NOTE | 2018-07-06 16:36 | ASMTCMCOM ---
CM Note CM Note Notes: CM met w/ pt for dispo planning. PT is recommending SNF. Pt is agreeable to going to SNF however she is not interested in going back to [facility]. Referrals sent. CM spoke w/ Jazmin Jansen w/ financial counseling. Per Jazmin, pt has 20 SNF days with 80 copay days. CM reached out to crop or grain farmworker service to see if they can assist in MDPOA paperwork. CM to follow. Plan: SNF Date Signed: 07/06/2018 04:36 PM Electronically Signed By:BARBARA Landon
--- NOTE | 2018-07-06 17:04 | ASMTCMCOM ---
CM Note CM Note Notes: KRISTA Ramos (P#: [phone]) stopped by today and met w/ pt. Angela is unable to get involved as long as pt is decisional. Dr. Blake will put in a cog eval. Date Signed: 07/06/2018 05:04 PM Electronically Signed By:BARBARA Landon
[2018-07-07] MEDS: NYSTATIN POWDER 15 GM BTL TP SCH ×3 (08:59→20:52)
[2018-07-07] MEDS: INSULIN LISPRO 100 UNIT/ML SC SCH ×3 (08:59→17:08)
[2018-07-07] MEDS: FAMOTIDINE 20 MG TAB PO SCH ×2 (08:59→20:50)
[2018-07-07] MEDS: RIVAROXABAN 20 MG TAB PO SCH (08:59)
[2018-07-07] MEDS: SERTRALINE HCL 100 MG TAB PO SCH (08:59)
--- NOTE | 2018-07-07 14:45 | ASMTCMCOM ---
CM Note CM Note Notes: Pt has chosen [facility]. CM notified Thea from [employer] to start getting auth. CM to follow. Date Signed: 07/07/2018 02:45 PM Electronically Signed By:BARBARA Landon
--- NOTE | 2018-07-07 15:29 | HOSPPROG ---
Hospitalist Progress Note Assessment/Plan: 72 yo F with MMI including DM2, hx of lacunar infarct and likely FTT with an unsafe living situation presenting here with e coli uti and septic shock #Septic shock: -resolved -E coli UTI. Completed full course abx #Acute metabolic encephalopathy: resolved, but continues to exhibit poor insight. -CTH negative #Candidia intertrigo: much improved. S/p Micafungin. #Prolonged Qtc: resolved #Hypothermia: warmed, resolved #Dysphagia: now on dysphagia 2 diet with thin liquids per CAR DUMPER OPERATOR HELPER and doing well #Morbid obesity: counseled on diet #Hypokalemia: repleted #Bradycardia: telemetry. resolved #Atrial fibrillation : paroxysmal, on personal review of most recent ecg now in sinus rhythm. Xarelto #h/o lacunar CVA: CTH stable #DM2: hold Lantus with low sugars, SSI if needed #DVT ppx: Lovenox #Social: per EMS, house is very unsafe. Patient had initially been adamant about going home but currently states she is amenable to snf, CM involved Inpatient admission for IV abx, pressors. Will dc when able to establish safe discharge plan, care plan reviewed with CM. Patient new to my care. Old records reviewed and summarized as above. Subjective: no significant overnight events, patient states she is feeling well currently, has a bit of pain and feels a bit weak but otherwise at baseline Objective: Vital Signs Temp Pulse Resp BP Pulse Ox 36.4 C 84 19 102/65 90 L 07/07/18 11:24 07/07/18 11:24 07/07/18 11:24 07/07/18 11:24 07/07/18 11:24 Laboratory Results 07/03/18 04:20 07/06/18 03:50 07/06/18 07/07/18 07/08/18 05:59 05:59 05:59 Intake Total 770 1500 Balance 770 1500 PT 20.5 SEC (12.0-15.0) H 06/30/18 16:10 INR 1.75 (0.83-1.16) H 06/30/18 16:10 disheveled, malodorous anicteric op clear rrr no mrg cta b soft nt nd trace ble edema warm dry well perfused oriented x 3, guarded affect - Time Spent With Patient Time Spent with Patient: greater than 35 minutes Time Spent with Patient: Greater than 35 minutes spent on this patients care, greater than 50% of time spent counseling, educating, and coordinating care regarding the above mentioned plan. ICD10 Worksheet Patient Problems: Problems Problem Status Onset Frequent falls Acute Dehydration Acute Contusion of right hip Acute Cellulitis Acute Urinary tract infection Acute Hypothermia Acute Sepsis due to urinary tract infection Acute Septic shock Acute Hypotension Acute
[2018-07-08] MEDS: INSULIN LISPRO 100 UNIT/ML SC SCH ×3 (08:38→17:55)
[2018-07-08] MEDS: SERTRALINE HCL 100 MG TAB PO SCH (09:48)
[2018-07-08] MEDS: FAMOTIDINE 20 MG TAB PO SCH ×2 (09:48→20:58)
[2018-07-08] MEDS: RIVAROXABAN 20 MG TAB PO SCH (09:48)
[2018-07-08] MEDS: NYSTATIN POWDER 15 GM BTL TP SCH ×3 (09:48→20:58)
--- NOTE | 2018-07-08 16:13 | HOSPPROG ---
Hospitalist Progress Note Assessment/Plan: 72 yo F with MMI including DM2, hx of lacunar infarct and likely FTT with an unsafe living situation presenting here with e coli uti and septic shock #Septic shock: -resolved -E coli UTI. Completed full course abx #Acute metabolic encephalopathy: resolved, but continues to exhibit poor insight. -CTH negative #Candidia intertrigo: much improved. S/p Micafungin. #Prolonged Qtc: resolved #Hypothermia: warmed, resolved #Dysphagia: now on dysphagia 2 diet with thin liquids per QUEEN PRODUCER and doing well #Morbid obesity: counseled on diet #Hypokalemia: repleted #Bradycardia: telemetry. resolved #Atrial fibrillation : paroxysmal, on personal review of most recent ecg now in sinus rhythm. Xarelto #h/o lacunar CVA: CTH stable #DM2: hold Lantus with low sugars, SSI if needed #DVT ppx: Lovenox #Social: per EMS, house is very unsafe. Patient had initially been adamant about going home but currently states she is amenable to snf, CM involved Inpatient admission for IV abx, pressors. Will dc when able to establish safe discharge plan, care plan reviewed with CM. Subjective: no significant overnight events, patient denies any changes or new issues Objective: Vital Signs Temp Pulse Resp BP Pulse Ox 36.6 C 68 20 127/68 H 96 07/08/18 16:00 07/08/18 16:00 07/08/18 16:00 07/08/18 16:00 07/08/18 16:00 Laboratory Results 07/03/18 04:20 07/06/18 03:50 07/07/18 07/08/18 07/09/18 05:59 05:59 05:59 Intake Total 1500 Balance 1500 PT 20.5 SEC (12.0-15.0) H 06/30/18 16:10 INR 1.75 (0.83-1.16) H 06/30/18 16:10 disheveled, malodorous anicteric op clear rrr no mrg cta b soft nt nd trace ble edema warm dry well perfused oriented x 3, guarded affect ICD10 Worksheet Patient Problems: Problems Problem Status Onset Hypotension Acute Hypothermia Acute Sepsis due to urinary tract infection Acute Septic shock Acute Cellulitis Acute Contusion of right hip Acute Dehydration Acute Frequent falls Acute Urinary tract infection Acute
[2018-07-09] MEDS: INSULIN LISPRO 100 UNIT/ML SC SCH ×3 (09:41→17:33)
[2018-07-09] MEDS: SERTRALINE HCL 100 MG TAB PO SCH (10:07)
[2018-07-09] MEDS: NYSTATIN POWDER 15 GM BTL TP SCH ×3 (10:07→19:55)
[2018-07-09] MEDS: FAMOTIDINE 20 MG TAB PO SCH ×2 (10:07→19:54)
[2018-07-09] MEDS: RIVAROXABAN 20 MG TAB PO SCH (10:07)
--- NOTE | 2018-07-09 15:23 | HOSPPROG ---
Hospitalist Progress Note Assessment/Plan: 72 yo F with MMI including DM2, hx of lacunar infarct and likely FTT with an unsafe living situation presenting here with e coli uti and septic shock #Septic shock: -resolved, urinary source as next #E coli UTI. Completed full course abx. Patient continues to complain of urinary burning, states it has gotten worse over last couple of days, will get UA #Acute metabolic encephalopathy: resolved, but continues to exhibit poor insight. -CTH negative #Candidia intertrigo: much improved. S/p Micafungin. #Prolonged Qtc: resolved #Hypothermia: warmed, resolved #Dysphagia: now on dysphagia 2 diet with thin liquids per SOLDERER FURNACE and doing well #Morbid obesity: counseled on diet #Hypokalemia: repleted #Bradycardia: telemetry. resolved #Atrial fibrillation : paroxysmal, on personal review of most recent ecg now in sinus rhythm. Xarelto #h/o lacunar CVA: CTH stable #DM2: hold Lantus with low sugars, SSI if needed #DVT ppx: Lovenox #Social: per EMS, house is very unsafe. Patient had initially been adamant about going home but currently states she is amenable to snf, CM involved Inpatient admission for IV abx, pressors. Will dc when able to establish safe discharge plan, care plan reviewed with CM. Subjective: no significant overnight events, patient reports issues with increased urinary burning now Objective: Vital Signs Temp Pulse Resp BP Pulse Ox 36.3 C 62 16 121/70 H 94 07/09/18 15:03 07/09/18 15:03 07/09/18 15:03 07/09/18 15:03 07/09/18 15:03 Laboratory Results 07/03/18 04:20 07/06/18 03:50 07/08/18 07/09/18 07/10/18 05:59 05:59 05:59 Intake Total 540 Balance 540 PT 20.5 SEC (12.0-15.0) H 06/30/18 16:10 INR 1.75 (0.83-1.16) H 06/30/18 16:10 disheveled, malodorous anicteric op clear rrr no mrg cta b soft nt nd trace ble edema warm dry well perfused oriented x 3, guarded affect ICD10 Worksheet Patient Problems: Problems Problem Status Onset Hypotension Acute Hypothermia Acute Sepsis due to urinary tract infection Acute Septic shock Acute Cellulitis Acute Contusion of right hip Acute Dehydration Acute Frequent falls Acute Urinary tract infection Acute
[2018-07-09] MEDS: ACETAMINOPHEN 325 MG TAB PO PRN (19:54)
[2018-07-10] MEDS: NYSTATIN POWDER 15 GM BTL TP SCH ×3 (09:05→22:02)
[2018-07-10] MEDS: RIVAROXABAN 20 MG TAB PO SCH (09:05)
[2018-07-10] MEDS: FAMOTIDINE 20 MG TAB PO SCH ×2 (09:05→22:03)
[2018-07-10] MEDS: SERTRALINE HCL 100 MG TAB PO SCH (09:05)
[2018-07-10] MEDS: INSULIN LISPRO 100 UNIT/ML SC SCH ×3 (09:05→17:45)
--- NOTE | 2018-07-10 12:46 | HOSPPROG ---
Hospitalist Progress Note Assessment/Plan: 72 yo F with MMI including DM2, hx of lacunar infarct and likely FTT with an unsafe living situation presenting here with e coli uti and septic shock #Septic shock: resolved, urinary source as next #E coli UTI. Completed full course abx. Patient w/ complaint of urinary burning with repeat UA no longer c/w infection, started on short course of pyridium #Acute metabolic encephalopathy: resolved, but continues to exhibit poor insight. Was in the setting of acute infection as above #Candidia intertrigo: much improved. S/p Micafungin. #Prolonged Qtc: resolved #Hypothermia: warmed, resolved #Dysphagia: now on dysphagia 2 diet with thin liquids per CERTIFIED ADDICTION COUNSELOR and doing well #Morbid obesity: counseled on diet #Hypokalemia: repleted #Bradycardia: telemetry. resolved #Atrial fibrillation : paroxysmal, on personal review of most recent ecg now in sinus rhythm. Xarelto #h/o lacunar CVA: CTH stable #DM2: hold Lantus with low sugars, SSI if needed #DVT ppx: Lovenox #Social: per EMS, house is very unsafe. Patient had initially been adamant about going home but currently states she is amenable to snf, CM involved Inpatient admission for IV abx, pressors. Patient amenable to dc to snf, is not safe at home, APS involved. CM working on this with patient currently. Expected dc in coming 1-2 days. Subjective: no significant overnight events, patient currently notes feeling overall ok other than continued urinary burning Objective: Vital Signs Temp Pulse Resp BP Pulse Ox 36.8 C 57 L 17 128/70 H 96 07/10/18 08:00 07/10/18 08:00 07/10/18 08:00 07/10/18 08:00 07/10/18 08:00 Laboratory Results 07/03/18 04:20 07/06/18 03:50 07/09/18 07/10/18 07/11/18 05:59 05:59 05:59 Intake Total 540 500 Output Total 450 Balance 540 50 PT 20.5 SEC (12.0-15.0) H 06/30/18 16:10 INR 1.75 (0.83-1.16) H 06/30/18 16:10 disheveled, malodorous anicteric op clear rrr no mrg cta b soft nt nd trace ble edema warm dry well perfused oriented x 3, guarded affect ICD10 Worksheet Patient Problems: Problems Problem Status Onset Hypotension Acute Hypothermia Acute Sepsis due to urinary tract infection Acute Septic shock Acute Cellulitis Acute Contusion of right hip Acute Dehydration Acute Frequent falls Acute Urinary tract infection Acute
[2018-07-10] MEDS: PHENAZOPYRIDINE HCL 100 MG TAB PO SCH ×2 (13:12→19:03)
--- NOTE | 2018-07-10 13:39 | ASMTCMCOM ---
CM Note CM Note Notes: [facility] in [place] is working on getting prior auth from insurance. CM provided with updates today. RN and MD notified. CM to follow. Plan: [facility] in [place] pending insurance auth. Date Signed: 07/10/2018 01:38 PM Electronically Signed By:BARBARA Sheth
[2018-07-11] MEDS: FAMOTIDINE 20 MG TAB PO SCH ×2 (08:33→20:23)
[2018-07-11] MEDS: PHENAZOPYRIDINE HCL 100 MG TAB PO SCH ×3 (08:33→20:23)
[2018-07-11] MEDS: RIVAROXABAN 20 MG TAB PO SCH (08:33)
[2018-07-11] MEDS: SERTRALINE HCL 100 MG TAB PO SCH (08:33)
[2018-07-11] MEDS: NYSTATIN POWDER 15 GM BTL TP SCH ×3 (08:36→20:44)
[2018-07-11] MEDS: INSULIN LISPRO 100 UNIT/ML SC SCH ×3 (08:38→18:42)
--- NOTE | 2018-07-11 14:38 | HOSPPROG ---
Hospitalist Progress Note Assessment/Plan: 72 yo F with MMI including DM2, hx of lacunar infarct and likely FTT with an unsafe living situation presenting here with e coli uti and septic shock #Septic shock: resolved, urinary source #E coli UTI. Completed full course abx. #Acute metabolic encephalopathy: 2/2 infection, resolved, but continues to exhibit poor insight. #Candidia intertrigo: much improved. S/p Micafungin. #Prolonged Qtc: resolved #Hypothermia: warmed, resolved #Dysphagia: now on dysphagia 2 diet with thin liquids per VENDETTE and doing well #Morbid obesity: counseled on diet #Hypokalemia: repleted #Bradycardia: resolved #Atrial fibrillation : paroxysmal, on personal review of most recent ecg now in sinus rhythm. Xarelto #h/o lacunar CVA: CTH stable #DM2: hold Lantus with low sugars, SSI if needed #diarrhea: 4-6 stools overnight per pt -send c diff given recent atbx #DVT ppx: Lovenox #Social: per EMS, house is very unsafe. Patient had initially been adamant about going home but currently states she is amenable to snf, CM involved Inpatient admission for IV abx, pressors. Patient amenable to dc to snf, is not safe at home, APS involved. CM working on this with patient currently. Expected dc in coming 1-2 days. Subjective: Pt reports loose diarrheal stools, 4x today. No fevers/chills. No abdominal pain. Otherwise, feels better. Tolerating diet. No N/V. Objective: Vital Signs Temp Pulse Resp BP Pulse Ox 36.4 C 79 16 112/68 96 07/11/18 12:26 07/11/18 12:26 07/11/18 12:26 07/11/18 12:26 07/11/18 12:26 Laboratory Results 07/03/18 04:20 07/06/18 03:50 07/10/18 07/11/18 07/12/18 05:59 05:59 05:59 Intake Total 500 625 Output Total 450 1200 200 Balance 50 -575 -200 PT 20.5 SEC (12.0-15.0) H 06/30/18 16:10 INR 1.75 (0.83-1.16) H 06/30/18 16:10 - Physical Exam Constitutional: no apparent distress Eyes: PERRL Ears, Nose, Mouth, Throat: moist mucous membranes Cardiovascular: regular rate and rhythym Respiratory: no respiratory distress, clear to auscultation, reduced air movement Gastrointestinal: normoactive bowel sounds, soft, non-tender abdomen Skin: warm Musculoskeletal: full muscle strength Neurologic: AAOx3 Psychiatric: interacting appropriately ICD10 Worksheet Patient Problems: Problems Problem Status Onset Hypotension Acute Hypothermia Acute Sepsis due to urinary tract infection Acute Septic shock Acute Cellulitis Acute Contusion of right hip Acute Dehydration Acute Frequent falls Acute Urinary tract infection Acute
[2018-07-12] MEDS: PHENAZOPYRIDINE HCL 100 MG TAB PO SCH (09:47)
[2018-07-12] MEDS: RIVAROXABAN 20 MG TAB PO SCH (09:47)
[2018-07-12] MEDS: FAMOTIDINE 20 MG TAB PO SCH ×2 (09:47→20:27)
[2018-07-12] MEDS: NYSTATIN POWDER 15 GM BTL TP SCH ×3 (09:47→20:28)
[2018-07-12] MEDS: SERTRALINE HCL 100 MG TAB PO SCH (09:47)
[2018-07-12] MEDS: INSULIN LISPRO 100 UNIT/ML SC SCH ×3 (10:14→18:42)
[2018-07-12] MEDS ORDERED: LOPERAMIDE HCL 2 MG CAP PO PRN (14:44)
--- NOTE | 2018-07-12 16:12 | HOSPPROG ---
Hospitalist Progress Note Assessment/Plan: 72 yo F with MMI including DM2, hx of lacunar infarct and likely FTT with an unsafe living situation presenting here with e coli uti and septic shock #Septic shock: resolved, urinary source #E coli UTI. Completed full course abx. #Acute metabolic encephalopathy: 2/2 infection, resolved, but continues to exhibit poor insight. #Candidia intertrigo: much improved. S/p Micafungin. #Prolonged Qtc: resolved #Hypothermia: warmed, resolved #Dysphagia: now on dysphagia 2 diet with thin liquids per SELF CONTAINED BEHAVIOR UNIT TEACHER and doing well #Morbid obesity: counseled on diet #Hypokalemia: repleted #Bradycardia: resolved #Atrial fibrillation : paroxysmal, on personal review of most recent ecg now in sinus rhythm. Xarelto #h/o lacunar CVA: CTH stable #DM2: holding Lantus with low sugars, cont ssi as needed #diarrhea: c diff neg, imodium ok #DVT ppx: Lovenox #Social: per EMS, house is very unsafe. Patient had initially been adamant about going home but currently states she is amenable to snf, CM involved Inpatient admission for IV abx, pressors. Patient amenable to dc to snf, is not safe at home, APS involved. CM working on this with patient currently. Likely dc to SNF in am Subjective: Pt feels well. She still reports diarrhea, no pain, no fevers. Objective: Vital Signs Temp Pulse Resp BP Pulse Ox 36.6 C 69 18 102/58 L 91 L 07/12/18 09:50 07/12/18 09:50 07/12/18 09:50 07/12/18 09:50 07/12/18 09:50 Laboratory Results 07/03/18 04:20 07/06/18 03:50 07/11/18 07/12/18 07/13/18 05:59 05:59 05:59 Intake Total 625 650 Output Total 1200 200 Balance -575 450 PT 20.5 SEC (12.0-15.0) H 06/30/18 16:10 INR 1.75 (0.83-1.16) H 06/30/18 16:10 - Physical Exam Constitutional: no apparent distress Eyes: PERRL Ears, Nose, Mouth, Throat: moist mucous membranes Cardiovascular: regular rate and rhythym Respiratory: no respiratory distress Gastrointestinal: normoactive bowel sounds, soft, non-tender abdomen Skin: warm Musculoskeletal: full muscle strength Neurologic: AAOx3 Psychiatric: interacting appropriately ICD10 Worksheet Patient Problems: Problems Problem Status Onset Hypotension Acute Hypothermia Acute Sepsis due to urinary tract infection Acute Septic shock Acute Cellulitis Acute Contusion of right hip Acute Dehydration Acute Frequent falls Acute Urinary tract infection Acute
--- NOTE | 2018-07-12 16:51 | PDPCPN ---
Palliative Care Progress Note Assessment/Plan: Assessment: [facility] [address] [place] [id number] (O) [phone](F) PALLIATIVE CARE NOTE NAME:Lina Ordonez : 47, 72 VISIT TYPE: Follow-up Date: 07/12/18 LOCATION: Count includes the [facility] LEVEL OF CARE: Transitional DIAGNOSES: 1. Panniculitis 2. Widespread fungal skin infection CC: Initial palliative care visit HPI: Ms. Ordonez is a 72-year-old female who has been living alone and independently in her home outside of [place]. She began to experience significant pain in her lower extremities as well as her abdominal region. Her neighbor eventually called 911 for transport to the hospital. She was found to have panniculitis and is currently receiving IV antibiotics and antifungals. She has significantly improved and she is now agreeing to go to a fpc facility for rehabilitation. 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 Has been living alone independently in her home outside of work to [place] PATIENT GOALS OF CARE: 1. Return home 2. Remain as independent as possible ACTIVE SYMPTOMS/ASSESSMENTS/RECOMMENDATIONS: 1. Panniculitis M79.3: Currently being treated with IV antibiotics and IV antifungals. 2. Pain G 89.4: Significantly improved MODIFIED [place] SYMPTOM ASSESSMENT SCALE: 0-none; 1-3 mild; 4-6 moderate; 7-10 severe Unable to Respond: No [ ] Delirium: 0-none Depression: 0-none Anxiety: 0none Tiredness (fatigue): 3 Drowsiness (sleepiness): 0-none Pain: 4 Nausea: 0-none Anorexia: 0-none Shortness of Breath: 0-none Secretions: 0-none Constipation: 0-none Symptom and side effect management: (acceptable to patient and family) RISK FACTORS FOR RE-HOSPITALIZATION: o LIVES ALONE o COMPROMISED FINANCIAL STATUS o INADEQUATE SUPPORT SYSTEM o INADEQUATE TRANSPORTATION o DISEASE EDUCATION DEFICIT OBJECTIVE FINDINGS Palliative Performance Score: 70 FAST: Not applicable NYHA: n/a Vital Signs: Wt: MAC: Neuro: A&O to person, place, time and event; HEENT: Normocephalic; atraumatic RESP: Regular, deep, symmetrical. No cough or wheezing CV: no LE edema GI: soft, round : no dysuria or hematuria MSK: Well nourished. Ambulatory SKIN: intact. Intertriginous areas of erythema LAB Data: N/A Disposition: example- living safely and comfortably at home ADVANCE CARE PLANNING DISCUSSION PLAN: A second referral was received for palliative care consultation. The patient is scheduled to be discharged in the next several days to a fpc facility for rehabilitation. We can follow her if she discharges to home for resource management she otherwise has no life limiting condition. Thank you for the opportunity to participate in the care of this patient. TIME SPENT: [id number] 15 min >50% of the time spent counseling, educating and coordinating the above topics. Maurizio Sanchez Plan: 07/12/18 16:51 Objective: Vital Signs Temp Pulse Resp BP Pulse Ox 37.0 C 73 18 109/69 94 07/12/18 16:00 07/12/18 16:00 07/12/18 16:00 07/12/18 16:00 07/12/18 16:00 Laboratory Results 07/03/18 04:20 07/06/18 03:50 07/11/18 07/12/18 07/13/18 05:59 05:59 05:59 Intake Total 625 650 Output Total 1200 200 Balance -575 450 PT 20.5 SEC (12.0-15.0) H 06/30/18 16:10 INR 1.75 (0.83-1.16) H 06/30/18 16:10 ICD10 Worksheet Patient Problems: Problems Problem Status Onset Hypotension Acute Hypothermia Acute Sepsis due to urinary tract infection Acute Septic shock Acute Cellulitis Acute Contusion of right hip Acute Dehydration Acute Frequent falls Acute Urinary tract infection Acute
[2018-07-13] MEDS: INSULIN LISPRO 100 UNIT/ML SC SCH ×3 (09:33→18:05)
[2018-07-13] MEDS: FAMOTIDINE 20 MG TAB PO SCH ×2 (10:24→21:15)
[2018-07-13] MEDS: RIVAROXABAN 20 MG TAB PO SCH (10:24)
[2018-07-13] MEDS: SERTRALINE HCL 100 MG TAB PO SCH (10:25)
[2018-07-13] MEDS: NYSTATIN POWDER 15 GM BTL TP SCH ×3 (10:25→21:17)
--- NOTE | 2018-07-13 14:34 | HOSPPROG ---
Hospitalist Progress Note Assessment/Plan: 72 yo F with MMI including DM2, hx of lacunar infarct and likely FTT with an unsafe living situation presenting here with e coli uti and septic shock #Septic shock: resolved, urinary source #E coli UTI. Completed full course abx. #Acute metabolic encephalopathy: 2/2 infection, resolved, but continues to exhibit poor insight. #Candidia intertrigo: much improved. S/p Micafungin. #Prolonged Qtc: resolved #Hypothermia: warmed, resolved #Dysphagia: now on dysphagia 2 diet with thin liquids per INSTRUCTIONAL PARAPROFESSIONAL and doing well #Morbid obesity: counseled on diet #Hypokalemia: repleted #Bradycardia: resolved #Atrial fibrillation : paroxysmal, on personal review of most recent ecg now in sinus rhythm. Xarelto #h/o lacunar CVA: CTH stable #DM2: holding Lantus with low sugars, cont ssi as needed #diarrhea: c diff neg, imodium ok #DVT ppx: Lovenox #Social: per EMS, house is very unsafe. Patient had initially been adamant about going home but currently states she is amenable to snf. CM working on this. Subjective: Pt feels well, no more diarrhea. No CP or SOB. Eating well. No complaints. Objective: Vital Signs Temp Pulse Resp BP Pulse Ox 37.1 C 74 18 120/71 96 07/13/18 11:34 07/13/18 11:34 07/13/18 11:34 07/13/18 11:34 07/13/18 11:34 Laboratory Results 07/03/18 04:20 07/06/18 03:50 07/12/18 07/13/18 07/14/18 05:59 05:59 05:59 Intake Total 650 750 120 Output Total 200 100 Balance 450 650 120 PT 20.5 SEC (12.0-15.0) H 06/30/18 16:10 INR 1.75 (0.83-1.16) H 06/30/18 16:10 - Physical Exam Constitutional: no apparent distress Eyes: PERRL Ears, Nose, Mouth, Throat: moist mucous membranes Cardiovascular: regular rate and rhythym Respiratory: no respiratory distress, clear to auscultation Gastrointestinal: normoactive bowel sounds, soft, non-tender abdomen Skin: warm Musculoskeletal: full muscle strength Neurologic: AAOx3 Psychiatric: interacting appropriately ICD10 Worksheet Patient Problems: Problems Problem Status Onset Hypotension Acute Hypothermia Acute Sepsis due to urinary tract infection Acute Septic shock Acute Cellulitis Acute Contusion of right hip Acute Dehydration Acute Frequent falls Acute Urinary tract infection Acute
--- NOTE | 2018-07-13 16:10 | ASMTCMCOM ---
CM Note CM Note Notes: 07/13/2018 Case Management Note Multiple attempts by [facility] to obtain auth from [facility] have been unsuccessful this week. Per [facility], [facility] stated they have 14 days to provide authorization for SNF rehab. Provided up to date notes to [facility] via allscripts. Jennifer Shetty of financial counseling confirmed pt insurance and updated pt face sheet. Case Management left on [phone], [facility] renal case manager line, requesting call back for authorization for SNF rehab. Notified technical sme. Notified MD. Case Management d/c poc: [facility] in [place] pending insurance auth. Case Management to follow. Date Signed: 07/13/2018 04:09 PM Electronically Signed By:Randee Miramontes RN
[2018-07-14 09:11] VITALS: BP 138/75
[2018-07-14] MEDS: SERTRALINE HCL 100 MG TAB PO SCH (10:56)
[2018-07-14] MEDS: RIVAROXABAN 20 MG TAB PO SCH (10:56)
[2018-07-14] MEDS: INSULIN LISPRO 100 UNIT/ML SC SCH ×2 (10:56→13:13)
[2018-07-14] MEDS: FAMOTIDINE 20 MG TAB PO SCH (10:56)
[2018-07-14] MEDS: NYSTATIN POWDER 15 GM BTL TP SCH (10:57)
--- NOTE | 2018-07-14 13:21 | HOSPPROG ---
Hospitalist Progress Note Assessment/Plan: 72 yo F with MMI including DM2, hx of lacunar infarct and likely FTT with an unsafe living situation presenting here with e coli uti and septic shock #Septic shock: resolved, urinary source #E coli UTI. Completed full course abx. #Acute metabolic encephalopathy: 2/2 infection, resolved, but continues to exhibit poor insight. #Candidia intertrigo: much improved. S/p Micafungin. #Prolonged Qtc: resolved #Hypothermia: warmed, resolved #Dysphagia: now on dysphagia 2 diet with thin liquids per INCISING MACHINE OPERATOR and doing well #Morbid obesity: counseled on diet #Hypokalemia: repleted #Bradycardia: resolved #Atrial fibrillation : paroxysmal, on personal review of most recent ecg now in sinus rhythm. Xarelto #h/o lacunar CVA: CTH stable #DM2: holding Lantus with low sugars, cont ssi as needed #diarrhea: c diff neg, imodium ok #DVT ppx: Lovenox #Social: per EMS, house is very unsafe. Patient had initially been adamant about going home but currently states she is amenable to snf. #Dispo: Pt was medically cleared for d/c to SNF on 07/11/2018, but her discharge has been delayed while waiting for insurance approval for SNF. Objective: Vital Signs Temp Pulse Resp BP Pulse Ox 37.1 C 70 16 138/75 H 87 L 07/14/18 09:11 07/14/18 09:11 07/14/18 09:11 07/14/18 09:11 07/14/18 09:11 Laboratory Results 07/03/18 04:20 07/06/18 03:50 07/13/18 07/14/18 07/15/18 05:59 05:59 05:59 Intake Total 750 920 Output Total 100 600 Balance 650 320 PT 20.5 SEC (12.0-15.0) H 06/30/18 16:10 INR 1.75 (0.83-1.16) H 06/30/18 16:10 ICD10 Worksheet Patient Problems: Problems Problem Status Onset Hypotension Acute Hypothermia Acute Sepsis due to urinary tract infection Acute Septic shock Acute Cellulitis Acute Contusion of right hip Acute Dehydration Acute Frequent falls Acute Urinary tract infection Acute
--- NOTE | 2018-07-14 14:11 | PDIAF ---
- Diagnosis Diagnosis: sepsis, UTI, DM Code Status: Full Code - Medication Management Discharge Medications: electronically signed and located in the Home Medication List. PICC Care - Routine: N/A - Orders Services needed: Registered Nurse, Physical Therapy, Occupational Therapy Isolation Type: None Diet Recommendation: ADA 2000 consistent carb Diet Texture: Regular Texture Diet, Thin Liquids, Meds Whole w/Liquids - Follow Up Care Current Providers and Referrals: Vanessa,Aric, DO [Primary Care Provider] - As per Instructions
--- NOTE | 2018-07-14 14:43 | GDS ---
DISCHARGE DIAGNOSES: 1. Septic shock secondary to urinary tract infection, resolved. 2. Escherichia coli urinary tract infection, status post completion of antibiotic course. 3. Metabolic encephalopathy, improved. 4. Hina intertrigo, improved status post micafungin. 5. Hypothermia, resolved. 6. Dysphagia, on dysphagia 2 diet. 7. Severe obesity. 8. Paroxysmal atrial fibrillation. 9. Chronic anticoagulation. 10. History of lacunar stroke. 11. Diabetes mellitus type 2. Lantus has been held secondary to low blood sugars, and she will disc harge on metformin. 12. Diarrhea. C diff is negative. CONSULTANTS: 1. Dr. Vicente Toth, die technician. 2. Dr. Jennifer Kenny, Infectious Disease. HISTORY: For details, please see history and physical dated June 30, 2018. In brief, the patien mekhi is a 72-year-old female, history of diabetes, hypertension, and previous stroke, on Eliquis, who pr esented to the emergency department after being found down. Workup revealed criteria for septic shoc k. She received IV fluid bolus and broad-spectrum antibiotics. In addition, a central line was plac ed, and she was started on vasopressor therapy for blood pressure support. HOSPITAL COURSE: Patient was admitted to the intensive care unit with septic shock interventions as above. Her blood cultures were negative. She grew greater than 100,000 colony-forming units of E co li on her urine culture and completed a full treatment course of ceftriaxone. In addition, she had s ignificant Hina intertrigo and received micafungin. This agent was chosen due to her prolonged QT segment, although that also improved. In addition, she presented with hypothermia, though she was r ewarmed, and this completely resolved. She had previously been on Lantus, although this was held as she had low blood sugars. She has since been treated with sliding scale insulin, though has only req uired intermittent doses. Her blood sugars have been mostly in the 100s, and she frequently does not need insulin. Therefore, I will start her on metformin 500 mg twice daily at discharge, and she can continue to have close followup of her blood sugars at the [facility]. She was evalua moon by therapy and was recommended she have ongoing rehab at [facility] facility. The patient i s agreeable to this. Her hospital discharge was delayed by several days as there was a delay with her insurance approving her to go to SNF. I began caring for the patient on July 11 and felt she was stable for discharge on that day. However, she is now discharging on July 14, now that we have final insurance approva l. DISPOSITION: Patient is discharged to [facility] facility in stable condition. FOLLOWUP: Dr. Aric Mendez, primary care. DISCHARGE MEDICATIONS: Please see [facility] for completed outpatient medication list. New medication s on discharge include Tylenol 650 p.o. q.4 hours p.r.n., Pepcid 20 mg p.o. b.i.d., Imodium 2 mg p.o. q.i.d. p.r.n., metformin 500 mg p.o. b.i.d., #60, no refills, nystatin powder 1 application p.o. t.i .d. She will continue gabapentin 300 mg p.o. q.h.s., Xarelto 20 mg p.o. daily, and Zoloft 100 mg p.o. gisel ly. Discontinued medications: Insulin Lantus is discontinued. Losartan HCTZ 100/12.5 is also discontinue d as she has not received this since admission and has been normotensive throughout the hospitalizati on. Antihypertensives can be resumed as clinically indicated. Ativan and tramadol are also discontinued as she has not required these during this hospitalization, and they may contribute to worsening cognition and increased risk for delirium. /[id number]/MODL
--- NOTE | 2018-07-14 15:03 | ASMTLACE ---
JOLENE Length of stay for Answers: 7-13 days current admission Acuity / Level of Answers: Yes Care: Did the patient have an inpatient admission? Comorbidities - select Answers: Cerebrovascular disease all that apply (CVA, TIA, aneurysms, vasc ular dementia) Diabetes (uncontrolled or controlled) Opioid dependence / Chronic pain Other Notes: HTN, HLD, obesity, fibr param algia # of Emergency department Answers: 1-2 visits in the last 6 months Social determinants Answers: Lack of community resources and/or lack of social support (no pcp, lives alone, transportation, chichi d) Score: 20 Date Signed: 07/14/2018 03:02 PM Electronically Signed By:Randee Miramontes RN
--- NOTE | 2018-07-14 15:05 | ASMTDCNOTE ---
Case Management Discharge Discharge Order Complete? Answers: Yes Patient to Obtain Answers: Other Notes: [facility] Medications Transportation Arranged Answers: Other Notes: arranged by Franchesca at [facility] in [place] Transport will Pick (Date 07/14/2018 03:30 PM & Time) Faxed Final Orders Answers: Yes Notes: to [facility] Agency/Facility Transfer Answers: Yes Notes: to [facility] Report Printed & Faxed to Receiving Agency Family Notified Answers: Yes Discharge Comments Notes: 07/14/2018 Case Management Note Auth received from [facility]. Transport arranged by [facility] in [place]. Faxed final orders. RN to call report. Notified [facility] to discharge. Case Management d/c poc: to [facility] SNF rehab in [place]. Date Signed: 07/14/2018 03:04 PM Electronically Signed By:Randee Miramontes RN
--- NOTE | 2018-07-14 15:10 | ASDISCHSUM ---
Discharge Information Plan Status:SNF Medically Cleared to Leave: Discharge Date: D/C Disposition:[facility] Facility [facility] D/C Disposition:[facility] Facility Projected Discharge Date:07/06/2018 11:00 AM Transportation at D/C:Wheelchair Van Discharge Delay Reason: Follow-Up Date:07/06/2018 11:00 AM Discharge Slot: Final Diagnosis: Placement Information Referral Type:*[facility]/SNF Referral ID:[id number] Provider Name:Claudia pearce [place] Address 1:[address] Address 2: City:[place] Selection Factors: State:[place] Referral Type:Palliative Care Referral ID:[id number] Provider Name:[facility] Address 1:[address] Phone Number: Address 2: Fax Number: [facility]:[place] Selection Factors: State:[place] Patient Contact Information Contact Name:HEIDY Relationship:Friend Address: Work Phone: City: [facility] Phone: State/Zip Code: Email: Financial Information Financial Class:Medicare Primary Plan Desc:MEDICARE INPATIENT Primary Plan Number:[id number] Secondary Plan Desc:[facility] Secondary Plan Number:[id number] Assessment Information LACE LACE Acuity / Level of Answers: Yes Care: Did the patient have an inpatient admission? Comorbidities - select Answers: Cerebrovascular disease all that apply (CVA, TIA, aneurysms, vasc ular dementia) Diabetes (uncontrolled or controlled) Opioid dependence / Chronic pain Other Notes: HTN, HLD, obesity, fibr param algia # of Emergency department Answers: 1-2 visits in the last 6 months Social determinants Answers: Lack of community resources and/or lack of social support (no pcp, lives alone, transportation, chichi d) Score: 15 Date Signed: 07/01/2018 11:56 AM Electronically Signed By:Sussy Martinez RN [facility] CM Progress Note CM Note CM Note Notes: Pt admitted for hypothermia, hypotension and septic shock d/t UTI. Pt is reportedly is still disoriented but responds to her name and knows she is in the hospital. Pt arrived to the ED via EMS as a FTA after being found down in her home in [place] by the local Fire Dept (not sure if [facility] or [facility] - waiting for a call back) which was completing a welfare check. Pt lives in a small cabin by herself with her dog and has a history of not caring for herself adequately so the Fire Dept does welfare checks on her often (they had visited her 06/29 and noticed pt had fallen but pt refused transport to the ED at that time). This CM still hoping to hear from one of the Fire Depts to confirm pt's dog is being care for or where it is located. Pt was admitted at [facility] 05/31-06/19/18 for panniculitis and had initially been recommended to DC to SNF but pt did not have any Medicare SNF days left and she was unable to private pay for SNF. [facility] Inpatient rehab and LTAC options were also considered but they declined patient. There is not a skilled HC agency that will go to her address in [place] (but per past CM Reports pt had [facility] in the past but they will not take pt back due to her non-adherence - see past HC Reports). Pt had also been recommended to stay at a local hotel for awhile in order to receive skilled HC (especially wound care) but pt declined. Pt was eventually d/c'd home with unskilled HC through [facility] ([phone]). Pt had reported she planned on having [facility] visit daily for 5 hrs. This CM called [facility] and left a voicemail for Jeane Newman; still waiting for a call back. Pt also had a PC consult on 06/05/18; see that Note & 06/02/18 Spiritual Services Note for additional background info. Pt's father, brother and a cousin within the past year. Pt reportedly does not have any other family involved at this time. Per past chart review, pt has reported having many friends who help her out, including a neighbor who picks up groceries for her and Manuel Car ([facility]). Also, pt reportedly lost her of 30yrs about 10 years ago. Pt has a friend listed as NOK/Emergency Contact: Shirin Dill ([phone]) but when this CM called, the person who answered said it is the wrong number. Pt was also admitted back in December 2017 and was d/c'd to [facility] at that time; pt's friend Shirin's # at that time was listed as [phone] but the # is now disconnected. Pt does not appear to have an Advance Directive, MDPOA or Living Will scanned into our system. Pt's PCP is listed as Dr.Eric Mendez at [facility] in [place] ([phone]). PT/OT and Wound Care evals ordered. ID following. Exact DC needs TBD. CM to follow. Date Signed: 07/01/2018 12:55 PM Electronically Signed By:Sussy Martinez RN [facility] Progress Note CM Note CM Note Notes: Received a call back from Jeane Newman (c: [phone]), load tallier of [facility]. Jeane states she was up at the patient's cabin yesterday when they found the pt on the floor for the 3rd day in a row and called EMS. The previous two days they called the [employer] for lift assist and pt refused to come to the ED. Per Jeane, pt's house is disheveled, unkempt and unsafe for her to return to. Jeane said to feel free to reach out to her or the rock worker most familiar w/pt's case, Chaim Abreu (main HC of [facility] # [phone]). Jeane also said that BRYN Johnson at [facility] ([phone]) has been involved w/pt's case but not through [facility] (who will not take her back due to nonadherence). Spoke w/ Gogo, stereo plotter operator with [employer]; she states pt's dog, Saqib is being cared for by a couple, Meseretlorraine & Hawa, in [place]. But tomorrow or Tuesday, Saqib will then go to stay with Nataly Nogueraham in the [place] for "however long is needed." If the pt or anyone needs to contact someone re:Saqib whereabouts, etc. Gogo recommended to call the local vet, Terese Lancaster ([phone]) w/ [facility]. Spoke w/Deputy Hernadez ([phone]) with [facility] who is also very familiar with the patient and has been involved in the past. Per Satya, he placed pt on an M1 hold for being gravely disabled on 12/16/17 (pt as admitted to [facility] but there weren't any notes about her being on an M1). Satya also states his report on 12/16 listed Swetha Jain (h:[phone], c:[phone]; she lives in [place]) as a close friend. Also, Satya states that Manuel Car w/ [facility] is on vacation for the next week or so. Pt's MANINDER, Racheal Ordonez ([phone]) lives in [facility] and stated she is more than happy to discuss how she can help in anyway. Overall, there are a lot of friends, community service members, etc. concerned for this pt's well-being and they all seem to agree that pt is unable to care for herself at home. This CM called [facility] ([phone]), spoke jean claude/Nathan and filed a report on the case of self-neglect; Case No. [id number]. Per Nathan, APS will not be able to review the case until Tuesday due to the holiday. If there are any changes in the next 3 days, please reach out to APS and update them. CM to follow. Date Signed: 07/01/2018 05:34 PM Electronically Signed By:Sussy Martinez RN [facility] CM Progress Note CM Note CM Note Notes: Racheal Ordonez, patient's mahscn-qe-vky call to say that is is concerned about Lina's welfare. Racheal reports that EMS has been contacted 5x in the past month and she is unable to care for herself. Racheal doesn't think Lina has financial capabilities to pay for placement. Lina's partner, Sowmya, 4yrs ago and may have left their home to Lina or it may have been given to Sowmya's children. 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 Lina is still somewhat confused and Racheal not sure of any close friends. Racheal Ordonez [phone] is willing to be her Medical Proxy until Lina clears cognitively and can make her own decisions. An APS Report was made when patient was admitted-they will be meeting after the of the year to determine [employer] [employer]'s involvement. See previous CM Notes. Patient will need to go to a SNF Rehab on discharge. Date Signed: 07/03/2018 01:03 PM Electronically Signed By:Key Iraheta LCSW [facility] CM Progress Note CM Note CM Note Notes: Therapies are recommending SNF. The last time pt was here at [facility]. Pt used up all her Medicare days. CM sent a referral to [facility] in [place] to see if they can run her benefits. CM to follow. Date Signed: 07/05/2018 04:34 PM Electronically Signed By:BARBARA Landon [facility] CM Progress Note CM Note CM Note Notes: CM met w/ pt for dispo planning. PT is recommending SNF. Pt is agreeable to going to SNF however she is not interested in going back to [facility]. Referrals sent. CM spoke w/ Jazmin Jansen w/ financial counseling. Per Jazmin, pt has 20 SNF days with 80 copay days. CM reached out to policy writer sales service to see if they can assist in [facility] paperwork. CM to follow. Plan: SNF Date Signed: 07/06/2018 04:36 PM Electronically Signed By:BARBARA Landon [facility] CM Progress Note CM Note CM Note Notes: [facility]STA Ramos (P#: [phone]) stopped by today and met w/ pt. Angela is unable to get involved as long as pt is decisional. Dr. Blake will put in a cog eval. Date Signed: 07/06/2018 05:04 PM Electronically Signed By:BARBARA Landon [facility] CM Progress Note CM Note CM Note Notes: Pt has chosen [facility]. CM notified Thea from [employer] to start getting auth. CM to follow. Date Signed: 07/07/2018 02:45 PM Electronically Signed By:BARBARA Landon [facility] CM Progress Note CM Note CM Note Notes: [facility] in [place] is working on getting prior auth from insurance. CM provided with updates today. RN and MD notified. CM to follow. Plan: [facility] in [place] pending insurance auth. Date Signed: 07/10/2018 01:38 PM Electronically Signed By:BARBARA Sheth [facility] CM Progress Note CM Note CM Note Notes: 07/13/2018 Case Management Note Multiple attempts by [employer] to obtain auth from [employer] have been unsuccessful this week. Per [employer], [employer] stated they have 14 days to provide authorization for SNF rehab. Provided up to date notes to [employer] via [employer]. Jennifer Shetty of financial counseling confirmed pt insurance and updated pt face sheet. Case Management left on [phone], [facility] case picker line, requesting call back for authorization for SNF rehab. Notified collection specialist. Notified Case Management d/c poc: [facility] in [place] pending insurance auth. Case Management to follow. Date Signed: 07/13/2018 04:09 PM Electronically Signed By:Randee Miramontes RN LACE LACE Length of stay for Answers: 7-13 days current admission Acuity / Level of Answers: Yes Care: Did the patient have an inpatient admission? Comorbidities - select Answers: Cerebrovascular disease all that apply (CVA, TIA, aneurysms, vasc ular dementia) Diabetes (uncontrolled or controlled) Opioid dependence / Chronic pain Other Notes: HTN, HLD, obesity, fibr param algia # of Emergency department Answers: 1-2 visits in the last 6 months Social determinants Answers: Lack of community resources and/or lack of social support (no pcp, lives alone, transportation, chichi d) Score: 20 Date Signed: 07/14/2018 03:02 PM Electronically Signed By:Randee Miramontes RN Case Management Discharge Plan Note Case Management Discharge Discharge Order Complete? Answers: Yes Patient to Obtain Answers: Other Notes: [facility] Medications Transportation Arranged Answers: Other Notes: arranged by Franchesca at [facility] in [place] Transport will Pick (Date 07/14/2018 03:30 PM & Time) Faxed Final Orders Answers: Yes Notes: to [facility] Agency/Facility Transfer Answers: Yes Notes[facility] Report Printed & Faxed to Receiving Agency Family Notified Answers: Yes Discharge Comments Notes: 07/14/2018 Case Management Note Auth received from [facility]. Transport arranged by [employer] in [place]. Faxed final orders. RN to call report. Notified [facility] to discharge. Case Management d/c poc: to [facility] SNF rehab in [place]. Date Signed: 07/14/2018 03:04 PM Electronically Signed By:Randee Miramontes RN Intervention Information Intervention Type:*IM-Signed Date of Service:07/12/2018 04:04 PM Patient Type:Inpatient Staff Member:Jacqui Herrmann Hours: Discipline: Severity: Comment:
== END 2018-07-14 15:20 | DRG 871 ==
LOC: EDUNIT# → F2N 19:30 → F2W 07-05 15:25
PROVIDERS: ADMIT Internal Medicine; ATTEND Internal Medicine
DX: A41.51 Sepsis due to Escherichia coli [E. coli] (principal); R65.20 Severe sepsis without septic shock; N39.0 Urinary tract infection, site not specified; G93.41 Metabolic encephalopathy; T68.XXXA Hypothermia, initial encounter; R13.10 Dysphagia, unspecified; E87.6 Hypokalemia; E11.9 Type 2 diabetes mellitus without complications; I10 Essential (primary) hypertension; I48.0 Paroxysmal atrial fibrillation; E66.01 Morbid (severe) obesity due to excess calories; M79.3 Panniculitis, unspecified; B37.2 Candidiasis of skin and nail; I45.81 Long QT syndrome; Z86.718 Personal history of other venous thrombosis and embolism; Z79.01 Long term (current) use of anticoagulants; Z86.73 Personal history of transient ischemic attack (TIA), and cerebral infarction without residual deficits; Z91.81 History of falling; Z79.4 Long term (current) use of insulin; Z68.36 Body mass index [BMI] 36.0-36.9, adult
CPT/HCPCS: 82435-PO; 82565-PO; 82947-PO; 84132-PO; 84295-PO; 84484-PO; 84520-PO; 85014-PO; 92507-GN; 92523-GN; 92526-GN; 92610-GN; 96365; 97116-GP; 97162-GP; 97167-GO; 97530-GO; 97530-GP; 97535-GO; G8978-GP-CM; G8979-GP-CJ; G8987-GO-CM; G8988-GO-CJ; G8996-GN-CJ; G8997-GN-CI; J0692; J0696; J1450; J1650; J1815; J2248; J3370; J3411; J3475; J3480; Q9967

== ENCOUNTER 2018-08-10 15:47 | Emergency (ER) | payer OTHER ==
[2018-08-10] MEDS: CODE BLUE RESUSCITATION 1 EA MISC ONE ×2 (15:50→15:52)
[2018-08-10] MEDS ORDERED: ETOMIDATE 40 MG/20 ML INJ ONE ×2 (15:57→16:07)
[2018-08-10 16:13] VITALS: BP 60/0
--- NOTE | 2018-08-10 16:27 | EDPHY ---
H & P Time Seen by Provider: 08/10/18 17:00 HPI/ROS: HPI Cardiac arrest. 73-year-old female emergently. Patient reported to be found down in her apartment. She had a pulse of 50 but was unresponsive with agonal breathing according to EMS. Shortly into transport she went into cardiac arrest. CPR was initiated immediately. IO was established left tibia. The patient was given 6 doses of epinephrine. EMS reported asystole versus PEA on the way to the emergency department. On arrival, the patient was unresponsive, no spontaneous respirations. ROS: Unable to obtain. Past medical history: Hypertension, diabetes, atrial fibrillation, cellulitis, urinary tract infection. Social history: No known relatives on a arrival. Here by herself. Physical Exam: General Appearance: Cold, cyanotic, unresponsive. Head: Normocephalic atraumatic. Eyes: Pupils fixed and dilated at 4 mm bilaterally. ENT, Mouth: Mucous membranes are moist. Dentures in place. The pharyngeal tissues are unremarkable. No edema or swelling. No asymmetry suggestive of abscess. No erythema or exudates. Respiratory: No spontaneous respirations, breath sounds by bike valve mass distant anteriorly. Cardiovascular: No pulse. No heart sounds. Gastrointestinal: Abdomen is soft. Neurological: As above. Skin: Warm and dry, no rashes. Musculoskeletal: Neck is supple. No gross evidence of traumatic injury. Extremities are symmetrical. Database: EKG: Imaging: Procedures: Indication for the procedure was cardiopulmonary arrest. The patient was preoxygenated with 100% oxygen by face mask. No sedation or paralytics given. The patient was orally endotracheally intubated under direct visualization with a 7.5 ETT. Tracheal intubation was confirmed with misting on the tube; breath sounds were auscultated equally bilaterally; appropriate color change with [place] CO2 detector, capnography waveform is appropriate, oxygen saturation after procedure is 86%. The procedure was performed by myself. Emergency department course: EMS performing CPR on arrival. CPR transitioned without pause to our staff. Patient given 1 amp of calcium and 1 amp of bicarbonate. Questionable fine VFib on the monitor. Patient was shocked twice once at 300 joules and a 2nd time at 360 joules during CPR. No return of spontaneous circulation. Cardiac ultrasound revealed no spontaneous or meaningful cardiac movements. Time of initially called at 3:53 p.m.. Nursing staff then reported they felt a faint pulse. CPR then re-initiated, patient intubated. After intubation and continued CPR, PEA verses asystole on the monitor. No meaningful cardiac movement on ultrasound. Time of called at 4:05 p.m.. Differential Diagnosis: The differential diagnosis on this patient includes but is not limited to cardiopulmonary arrest, massive PE, acute coronary syndrome. This represents a partial list of diagnoses considered. These considerations are based on history , physical exam, past history, reassessment and diagnostic testing. Smoking Status: Never smoked Constitutional: Initial Vital Signs Temperature (C) 35 C L 08/10/18 15:56 Heart Rate 0 L 08/10/18 15:56 Respiratory Rate 0 L 08/10/18 15:56 Blood Pressure 60/0 L 08/10/18 15:56 O2 Sat (%) 86 L 08/10/18 15:56 O2 Delivery Mode Bag Valve Mask O2 (L/minute) 15 Allergies/Adverse Reactions: levofloxacin Allergy (Unknown, Verified 05/31/18 14:53) Other-Enter Comments Penicillins Allergy (Verified 05/31/18 14:53) Other-Enter Comments Home Medications: Medication Instructions Recorded Gabapentin [Neurontin 300 MG (*)] 300 mg PO HS 12/16/17 Rivaroxaban [Xarelto 10mg (*)] 20 mg PO DAILY #30 tab 06/19/18 Sertraline HCl [Zoloft 100mg (*)] 100 mg PO DAILY #30 tab 06/19/18 Acetaminophen [Tylenol 325mg (*)] 650 mg PO Q4HRS PRN tab 07/14/18 Famotidine [Pepcid 20 MG (*)] 20 mg PO BID tab 07/14/18 Loperamide HCl [Imodium 2 mg (*)] 2 mg PO QID PRN cap 07/14/18 Nystatin Powder [Mycostatin Powder] 1 marleny TP TID powder 07/14/18 metFORMIN HCL [Metformin HCl] 500 mg PO BID #60 tablet 07/14/18 Medical Decision Making - Data Points Medications Given: Discontinued Medications Miscellaneous Medication (Code Blue Resuscitation) 1 ea MISC EDNOW ONE Stop: 08/10/18 15:52 Last Admin: 08/10/18 15:52 Dose: 1 ea Departure - Departure Disposition: Clinical Impression: Cardiopulmonary arrest Referrals: Vanessa,DO Aric [Primary Care Provider] - As per Instructions
--- NOTE | 2018-08-10 19:52 | ASMTCMCOM ---
CM Note CM Note Notes: Patient brought to ED in full cardiac arrest and ressucitaion attempt in progress on arrival. Per EMS, patient was found "down" at home and EMS was contacted by a "neighbor" who was not identified to this CM. Chart reviewed from previous admissions and contact information found as follows: Racheal Ordonez is patient's MANINDER in [facility] and patient's friend Swetha Jain in [place]. This CM contacted both to inform of patient's passing and I have provided Racheal and Swetha with each others contact information. Racheal states that patient's MDPOA is Rev. Zena Nicholas . I have received a call from Zena who confirms this and she will coordinated with Swetha and Racheal regading mortuary decision, etc. Zena is aware that patient will remain in the morgue at [facility] until a decision regarding mortuary has been decided. I have explained the process for contacting a mortuary directly and informing the mortuary of patient's location at [facility]. I have asked Zena to also contact the [facility] (and ask to speak or LM with [facility]) to ask for additional support AND to notify [facility] of chosen mortuary. This CM has LM with [facility][id number] regarding patient's passing and Zena's (MDPOA) contact information to assist further with mortuary assistance, etc. Date Signed: 08/10/2018 07:51 PM Electronically Signed By:Darcie Ashby RN
== END 2018-08-10 17:35 | disposition expired ==
LOC: EDUNIT#
DX: I46.9 Cardiac arrest, cause unspecified (principal); I10 Essential (primary) hypertension; I48.91 Unspecified atrial fibrillation; E11.9 Type 2 diabetes mellitus without complications